=== PATIENT | male | born 1950 | race Caucasian/White ===

== ENCOUNTER → 2017-06-06 13:44 | Outpatient (REF) | payer MEDICARE, MEDICAID, SELFPAY ==
[2017-06-06 18:30] LABS: Basophils % 1.3 % (0.1-2.0); Eosinophils # 0.6 K/mm3 (0.0-0.4); Eosinophils % 19.7 % (0.1-12.0); Hematocrit 39.3 % (42.0-52.0); Lymphocytes # 0.9 K/mm3 (0.7-4.5); Lymphocytes % 28.4 K/mm3 (10-50); Mean Corpuscular HGB Conc 33.1 g/dL (31.8-35.4); Mean Corpuscular Hemoglobin 31.2 pg (27.0-31.2); Mean Platelet Volume 8.5 fl (7.4-10.4); Monocytes # 0.2 K/mm3 (0.1-1.0); Monocytes % 5.9 % (1.7-9.3); Neutrophils # 1.4 K/mm3 (1.8-7.8); Neutrophils % 44.7 % (37.0-80.0); Platelet Count 82 K/mm3 (142-424); Red Blood Count 4.18 M/mm3 (4.60-6.20); Red Cell Distribution Width 14.1 % (11.5-17.5); White Blood Count 3.1 K/mm3 (4.8-10.8)
[2017-06-06 19:26] LABS: Alanine Aminotransferase 20 U/L (12-78); Albumin Level 3.2 gm/dL (3.4-5.0); Albumin/Globulin Ratio 0.9 (1.1-1.8); Alkaline Phosphatase 188 U/L (46-116); Anion Gap 11.6 mEq/L (5-15); Aspartate Amino Transferase 24 U/L (15-37); Bilirubin,Total 1.4 mg/dL (0.2-1.0); Blood Urea Nitrogen 11 mg/dL (7-18); Calcium 8.3 mg/dL (8.5-10.1); Carbon Dioxide 30 mmol/L (21.0-32.0); Chloride 107 mmol/L (98-107); Creatinine,Serum 0.94 mg/dL (0.70-1.30); Estimated Glomerular Filt Rate 81 ml/min (>60); GFR (African American) 97 ML/MIN (>60); Globulin 3.4 gm/dl (1.3-3.2); Glucose 187 mg/dL (74-106); Potassium 4.6 mmoL/L (3.5-5.1); Sodium 144 mmol/L (136-145); Thyroid Stimulating Hormone 1.34 uIU/ml (0.358-3.740); Total Protein,Serum 6.6 gm/dL (6.4-8.2)
== END ==
LOC: LAB 13:44
PROVIDERS: Visit Provider Emergency Medicine
DX: M54.2 Cervicalgia (principal); R53.83 Other fatigue
CPT/HCPCS: 80053; 84439; 84443; 85025

== ENCOUNTER → 2017-07-18 15:55 | Outpatient (CLI) | payer MEDICARE, MEDICAID, SELFPAY ==
--- NOTE | 2017-07-18 16:02 | XR_ITS ---
EXAM: XR lumbar spine min 4V HISTORY: ITS.REASON: Back Pain ORDERING PHYSICIAN: Dallin Molina MD PATIENT AGE: 66 years FINDINGS: No fracture or dislocation. No lytic or blastic change. Mild facet hypertrophic changes are present L5-S1 and there are small endplate osteophytes at L3, L4, and L5. The disc spaces are well-preserved. IMPRESSION: No acute finding. Mild lumbar spondylosis
--- NOTE | 2017-07-18 16:02 | XR_ITS ---
EXAM: XR cervical spine 5V HISTORY: ITS.REASON: Neck Pain ORDERING PHYSICIAN: Dallin Molina MD PATIENT AGE: 66 years FINDINGS: No fracture or dislocation. Minimal anterolisthesis C5 on C6 of 3 mm. There are facet hypertrophic changes from C3 to C7. The foramina are not well displayed on the left posterior oblique view.. The disc spaces are well-preserved. IMPRESSION: Facet arthritic changes. Mild anterolisthesis of C5 on C6
== END ==
PROVIDERS: PCP Emergency Medicine; Visit Provider Emergency Medicine
DX: M54.2 Cervicalgia (principal); M54.9 Dorsalgia, unspecified
CPT/HCPCS: 72050; 72110

== ENCOUNTER → 2017-08-22 13:44 | Outpatient (CLI) | payer MEDICARE, MEDICAID, SELFPAY ==
--- NOTE | 2017-08-22 13:49 | MR_ITS ---
MR lumbar spine wo con HISTORY: PT states low back pain X2 yrs or longer. Bilateral leg pain, numbness and tingling. ITS.REASON: Back Pain ORDERING PHYSICIAN: Dallin Molina MD PATIENT AGE: 66 years Comparison: X-RAY 07/18/17 TECHNIQUE: Standard multiplanar multiecho sequences are performed without contrast. 3-D MIP and myelographic images are also rendered and reviewed FINDINGS: There is normal alignment. The spinal cord ends at the T12-L1 level. T12-L1, L1-L2, and L2-L3 have an unremarkable appearance. L3-L4: Minimal bulging disc. Minimal bilateral foraminal narrowing from the bulging disc and mild facet and ligamentum flavum hypertrophy. L4-L5: Mild left lateral recess and foraminal narrowing from minimal bulging disc and mild facet and ligamentum flavum hypertrophy. L5-S1: Minimal bulging disc along with facet and ligamentum flavum hypertrophy with mild bilateral lateral recess and foraminal narrowing. Incidental note is made of a rounded fluid collection within the right paraspinal muscles beginning at the T11-T12 level and extending inferiorly for a length of approximately 7 cm to the L1-L2 level measuring 2.8 cm AP and 3.6 in meters transverse. This is isointense on T1. On the T2-weighted images there is a fluid fluid level with increased signal intensity anteriorly and isointensity posteriorly and may represent a heme fluid level within a hematoma. This is incompletely imaged. There are some septations within this lesion medially. IMPRESSION: 1. Lumbar spondylosis as described above with bulging discs along facet ligamentum flavum hypertrophy causing foraminal lateral recess narrowing. Please above for detailed description at each level. 2. No extruded herniated disc or canal stenosis. 3. Probable hematoma right paraspinal muscles/longissimus thoracis muscle. Please correlate with clinical parameters. Has a patient had trauma to this area?. Consider follow-up to confirm stability and/or resolution
--- NOTE | 2017-08-22 13:49 | MR_ITS ---
MR cervical spine wo con, MR 3-d myelogram/MRCP HISTORY: Neck pain, limited range of motion due to pain ITS.REASON: Neck Pain ORDERING PHYSICIAN: Dallin Molina MD PATIENT AGE: 66 years Comparison: None TECHNIQUE: Standard multiplanar multiecho sequences are performed without contrast. 3-D MIP and myelographic images are also rendered and reviewed FINDINGS: There is normal alignment. Craniocervical junction has an unremarkable appearance. There is mild prominence of the posterior longitudinal ligament at C2-C3 to C4-C5 level. C2-C3: Unremarkable. C3-C4: Mild left-sided foraminal narrowing from facet and uncovertebral hypertrophy. C4-C5: Minimal bulging disc. C5-C6: 3 mm anterolisthesis of C5. There is facet hypertrophic change bilaterally with bilateral foraminal narrowing. The foraminal narrowing slightly greater on the left. C6-C7: Mild left-sided foraminal narrowing from facet hypertrophic change. C7-T1: Unremarkable. No canal stenosis or extruded herniated disc evident. IMPRESSION: 1. Mild cervical spondylosis with multilevel facet and uncovertebral hypertrophy as detailed above with mild left foraminal narrowing at C3-C4 and bilateral foraminal narrowing at C5-C6 and left foraminal narrowing at C6-C7. 2. No canal stenosis or disc herniation
== END ==
PROVIDERS: PCP Emergency Medicine; Visit Provider Emergency Medicine
DX: M54.5 Low back pain (principal); M54.2 Cervicalgia
CPT/HCPCS: 72141; 72148; 76376

== ENCOUNTER → 2017-09-26 13:26 | Outpatient (REF) | payer MEDICARE, MEDICAID, SELFPAY ==
[2017-09-26 18:54] LABS: Amphetamine/Metha Screen,Urine Negative ng/mL (<1000); Barbiturates Screen,Urine Negative ng/mL (<200); Benzodiazepines Screen,Urine Negative ng/mL (<200); Cannabinoid Screen,Urine Negative ng/mL (<50); Cocaine Screen,Urine Negative ng/mL (<300); Methadone Screen,Urine Negative ng/mL (<300); Opiate Screen,Urine Negative ng/mL (<300); Phencyclidine Screen,Urine Negative ng/mL (<25)
== END ==
LOC: LAB 13:26
PROVIDERS: Visit Provider Emergency Medicine
DX: M47.816 Spondylosis without myelopathy or radiculopathy, lumbar region (principal)
CPT/HCPCS: 80305

== ENCOUNTER → 2017-11-07 14:55 | Outpatient (REF) | payer MEDICARE, MEDICAID, SELFPAY ==
[2017-11-07 18:20] LABS: Amphetamine/Metha Screen,Urine Negative ng/mL (<1000); Barbiturates Screen,Urine Negative ng/mL (<200); Benzodiazepines Screen,Urine Negative ng/mL (<200); Cannabinoid Screen,Urine Negative ng/mL (<50); Cocaine Screen,Urine Negative ng/mL (<300); Methadone Screen,Urine Negative ng/mL (<300); Opiate Screen,Urine Negative ng/mL (<300); Phencyclidine Screen,Urine Negative ng/mL (<25)
== END ==
LOC: LAB 14:55
PROVIDERS: Visit Provider Emergency Medicine
DX: Z79.899 Other long term (current) drug therapy (principal)
CPT/HCPCS: 80305

== ENCOUNTER → 2017-12-07 13:25 | Outpatient (REF) | payer MEDICARE, MEDICAID, SELFPAY ==
[2017-12-07 18:07] LABS: Amphetamine/Metha Screen,Urine Negative ng/mL (<1000); Barbiturates Screen,Urine Negative ng/mL (<200); Benzodiazepines Screen,Urine Negative ng/mL (<200); Cannabinoid Screen,Urine Negative ng/mL (<50); Cocaine Screen,Urine Negative ng/mL (<300); Methadone Screen,Urine Negative ng/mL (<300); Opiate Screen,Urine Negative ng/mL (<300); Phencyclidine Screen,Urine Negative ng/mL (<25)
== END ==
LOC: LAB 13:25
PROVIDERS: Visit Provider Emergency Medicine
DX: Z79.899 Other long term (current) drug therapy (principal)
CPT/HCPCS: 80305

== ENCOUNTER → 2018-01-03 14:44 | Outpatient (REF) | payer MEDICARE, MEDICAID, SELFPAY ==
[2018-01-03 20:37] LABS: Amphetamine/Metha Screen,Urine Negative ng/mL (<1000); Barbiturates Screen,Urine Negative ng/mL (<200); Benzodiazepines Screen,Urine Negative ng/mL (<200); Cannabinoid Screen,Urine Negative ng/mL (<50); Cocaine Screen,Urine Negative ng/mL (<300); Methadone Screen,Urine Negative ng/mL (<300); Opiate Screen,Urine Negative ng/mL (<300); Phencyclidine Screen,Urine Negative ng/mL (<25)
[2018-02-10 20:13] LABS: Opiates NEGATIVE
== END ==
LOC: LAB 14:44
PROVIDERS: Visit Provider Emergency Medicine
DX: Z79.899 Other long term (current) drug therapy (principal)
CPT/HCPCS: 80305; 80361; G0480

== ENCOUNTER → 2018-02-01 18:57 | Outpatient (CLI) | payer MEDICARE, MEDICAID, SELFPAY ==
[2018-02-01 20:53] LABS: Basophils # 0.1 K/mm3 (0-0.2); Basophils % 2.7 % (0.1-2.0); Eosinophils # 0.6 K/mm3 (0.0-0.4); Eosinophils % 15.2 % (0.1-12.0); Hematocrit 46.9 % (42.0-52.0); Hemoglobin 13.7 g/dL (14.1-18.0); Lymphocytes # 1.7 K/mm3 (0.7-4.5); Mean Corpuscular HGB Conc 29.3 g/dL (31.8-35.4); Mean Corpuscular Hemoglobin 30.8 pg (27.0-31.2); Mean Corpuscular Volume 105.4 fl (80-94); Mean Platelet Volume 19.5 fl (7.4-10.4); Monocytes # 0.2 K/mm3 (0.1-1.0); Monocytes % 5.1 % (1.7-9.3); Neutrophils # 1.5 K/mm3 (1.8-7.8); Neutrophils % 36.7 % (37.0-80.0); Platelet Count 114 K/mm3 (142-424); Red Blood Count 4.45 M/mm3 (4.60-6.20); Red Cell Distribution Width 17.6 % (11.5-17.5)
[2018-02-01 21:28] LABS: Amphetamine/Metha Screen,Urine Negative ng/mL (<1000); Barbiturates Screen,Urine Negative ng/mL (<200); Benzodiazepines Screen,Urine Negative ng/mL (<200); Cannabinoid Screen,Urine Negative ng/mL (<50); Cocaine Screen,Urine Negative ng/mL (<300); Methadone Screen,Urine Negative ng/mL (<300); Opiate Screen,Urine Positive ng/mL (<300); Phencyclidine Screen,Urine Negative ng/mL (<25)
[2018-02-01 21:31] LABS: Erythrocyte Sedimentation Rate 15 mm/hr (0-20)
[2018-02-01 23:27] LABS: Hemoglobin A1C 10.3 % (0.0-7.0)
[2018-02-02 00:01] LABS: Alanine Aminotransferase 23 U/L (12-78); Albumin/Globulin Ratio 0.8 (1.1-1.8); Alkaline Phosphatase 255 U/L (46-116); Aspartate Amino Transferase 25 U/L (15-37); Bilirubin,Total 2.1 mg/dL (0.2-1.0); Blood Urea Nitrogen 9 mg/dL (7-18); Calcium 8.1 mg/dL (8.5-10.1); Carbon Dioxide 28 mmol/L (21.0-32.0); Chloride 97 mmol/L (98-107); Creatinine,Serum 1.14 mg/dL (0.70-1.30); Estimated Glomerular Filt Rate 64 ml/min (>60); Free T4 (Free Thyroxine) 0.93 ng/dl (0.76-1.46); GFR (African American) 78 ML/MIN (>60); Globulin 3.8 gm/dl (1.3-3.2); Sodium 134 mmol/L (136-145); Thyroid Stimulating Hormone 1.79 uIU/ml (0.358-3.740); Total Protein,Serum 6.8 gm/dL (6.4-8.2)
[2018-02-02 00:10] LABS: Glucose 611 mg/dL (74-106)
[2018-02-03 16:13] LABS: PSA, Free 0.16 ng/mL; Prostate Specific Ag 0.4 ng/mL (0.0-4.0)
== END ==
PROVIDERS: Visit Provider Emergency Medicine
DX: M43.10 Spondylolisthesis, site unspecified (principal); Z79.899 Other long term (current) drug therapy; M54.9 Dorsalgia, unspecified; R97.20 Elevated prostate specific antigen [PSA]
CPT/HCPCS: 80053; 80305; 83036; 84153; 84154; 84439; 84443; 85025; 85651

== ENCOUNTER → 2018-03-03 17:39 | Outpatient (CLI) | payer MEDICARE, MEDICAID, SELFPAY ==
[2018-03-03 20:31] LABS: Amphetamine/Metha Screen,Urine Negative ng/mL (<1000); Barbiturates Screen,Urine Negative ng/mL (<200); Benzodiazepines Screen,Urine Negative ng/mL (<200); Cannabinoid Screen,Urine Negative ng/mL (<50); Cocaine Screen,Urine Negative ng/mL (<300); Methadone Screen,Urine Negative ng/mL (<300); Opiate Screen,Urine Negative ng/mL (<300); Phencyclidine Screen,Urine Negative ng/mL (<25)
[2018-03-11 14:00] LABS: Opiates Negative (Cutoff=100)
== END ==
PROVIDERS: Visit Provider Emergency Medicine
DX: M47.812 Spondylosis without myelopathy or radiculopathy, cervical region (principal)
CPT/HCPCS: 80305; 80361; 80365; G0480

== ENCOUNTER → 2018-04-04 17:52 | Outpatient (CLI) | payer MEDICARE, MEDICAID, SELFPAY ==
[2018-04-04 20:56] LABS: Amphetamine/Metha Screen,Urine Negative ng/mL (<1000); Barbiturates Screen,Urine Negative ng/mL (<200); Benzodiazepines Screen,Urine Negative ng/mL (<200); Cannabinoid Screen,Urine Negative ng/mL (<50); Cocaine Screen,Urine Negative ng/mL (<300); Methadone Screen,Urine Negative ng/mL (<300); Opiate Screen,Urine Negative ng/mL (<300); Phencyclidine Screen,Urine Negative ng/mL (<25)
[2018-04-11 14:02] LABS: Opiates Negative ng/mL (Cutoff=100)
== END ==
PROVIDERS: Visit Provider Emergency Medicine
DX: M47.812 Spondylosis without myelopathy or radiculopathy, cervical region (principal)
CPT/HCPCS: 80305; 80361; G0480

== ENCOUNTER → 2018-06-13 18:11 | Outpatient (CLI) | payer MEDICARE, MEDICAID, SELFPAY ==
[2018-06-13 18:30] LABS: Basophils # 0.1 K/mm3 (0-0.2); Basophils % 1.8 % (0.1-2.0); Eosinophils # 0.6 K/mm3 (0.0-0.4); Eosinophils % 18.6 % (0.1-12.0); Hematocrit 39.9 % (42.0-52.0); Hemoglobin 13.1 g/dL (14.1-18.0); Mean Corpuscular HGB Conc 32.9 g/dL (31.8-35.4); Mean Platelet Volume 8.1 fl (7.4-10.4); Monocytes # 0.2 K/mm3 (0.1-1.0); Monocytes % 6.3 % (1.7-9.3); Neutrophils # 1.4 K/mm3 (1.8-7.8); Neutrophils % 42.2 % (37.0-80.0); Platelet Count 90 K/mm3 (142-424); Red Blood Count 4.24 M/mm3 (4.60-6.20); White Blood Count 3.3 K/mm3 (4.8-10.8)
[2018-06-13 18:55] LABS: Alanine Aminotransferase 26 U/L (12-78); Albumin Level 3.3 gm/dL (3.4-5.0); Alkaline Phosphatase 235 U/L (46-116); Anion Gap 12.8 mEq/L (5-15); Aspartate Amino Transferase 35 U/L (15-37); Bilirubin,Total 1.5 mg/dL (0.2-1.0); Blood Urea Nitrogen 13 mg/dL (7-18); Calcium 8.1 mg/dL (8.5-10.1); Carbon Dioxide 27 mmol/L (21.0-32.0); Chloride 106 mmol/L (98-107); Chol/HDL Ratio 3.4 (1-3.5); Cholesterol 183 mg/dL (140-200); Creatinine,Serum 1.02 mg/dL (0.70-1.30); Estimated Glomerular Filt Rate 73 ml/min (>60); GFR (African American) 88 ML/MIN (>60); Globulin 3.4 gm/dl (1.3-3.2); Glucose 279 mg/dL (74-106); HDL Cholesterol 54 mg/dL (27-67); LDL Cholesterol 104 mg/dL (0-130); Potassium 3.8 mmoL/L (3.5-5.1); Sodium 142 mmol/L (136-145); Thyroid Stimulating Hormone 1.34 uIU/ml (0.358-3.740); Total Protein,Serum 6.7 gm/dL (6.4-8.2); Triglycerides 124 mg/dL (30-200); VLDL Cholesterol 25 mg/dL (0-40)
[2018-06-13 20:08] LABS: Hemoglobin A1C 6.5 % (0.0-7.0)
[2018-06-15 09:19] LABS: Creatinine, Urine 156.2 mg/dL (Not Estab.)
[2018-06-15 13:07] LABS: Vitamin D 25 Hydroxy 22.9 ng/mL (30.0-100.0)
== END ==
PROVIDERS: Visit Provider Emergency Medicine
DX: E11.9 Type 2 diabetes mellitus without complications (principal); Z79.84 Long term (current) use of oral hypoglycemic drugs
CPT/HCPCS: 80053; 80061; 82043; 82570; 82652; 83036; 84439; 84443; 85025

== ENCOUNTER → 2018-08-11 17:24 | Outpatient (CLI) | payer MEDICARE, MEDICAID, SELFPAY ==
[2018-08-11 18:01] LABS: Basophils # 0.1 K/mm3 (0-0.2); Basophils % 1.3 % (0.1-2.0); Eosinophils # 0.7 K/mm3 (0.0-0.4); Eosinophils % 17.8 % (0.1-12.0); Hematocrit 40.5 % (42.0-52.0); Hemoglobin 14.2 g/dL (14.1-18.0); Lymphocytes % 24.8 % (10-50); Mean Corpuscular Hemoglobin 32.1 pg (27.0-31.2); Mean Corpuscular Volume 91.9 fl (80-94); Mean Platelet Volume 8.3 fl (7.4-10.4); Monocytes # 0.2 K/mm3 (0.1-1.0); Monocytes % 5.8 % (1.7-9.3); Neutrophils % 50.2 % (37.0-80.0); Platelet Count 97 K/mm3 (142-424); Red Blood Count 4.41 M/mm3 (4.60-6.20); Red Cell Distribution Width 14.6 % (11.5-17.5); White Blood Count 3.9 K/mm3 (4.8-10.8)
[2018-08-11 19:10] LABS: Amphetamine/Metha Screen,Urine Negative ng/mL (<1000); Barbiturates Screen,Urine Negative ng/mL (<200); Benzodiazepines Screen,Urine Negative ng/mL (<200); Cannabinoid Screen,Urine Negative ng/mL (<50); Cocaine Screen,Urine Negative ng/mL (<300); Methadone Screen,Urine Negative ng/mL (<300); Opiate Screen,Urine Positive ng/mL (<300); Phencyclidine Screen,Urine Negative ng/mL (<25)
[2018-08-11 19:16] LABS: Hemoglobin A1C 8.2 % (0.0-7.0)
[2018-08-11 19:22] LABS: Anion Gap 10.9 mEq/L (5-15); Blood Urea Nitrogen 8 mg/dL (7-18); Calcium 7.8 mg/dL (8.5-10.1); Carbon Dioxide 28 mmol/L (21.0-32.0); Chloride 105 mmol/L (98-107); Creatinine,Serum 1.22 mg/dL (0.70-1.30); Estimated Glomerular Filt Rate 59 ml/min (>60); GFR (African American) 72 ML/MIN (>60); Glucose 375 mg/dL (74-106); Potassium 3.9 mmoL/L (3.5-5.1); Sodium 140 mmol/L (136-145)
== END ==
PROVIDERS: Visit Provider Emergency Medicine
DX: M47.812 Spondylosis without myelopathy or radiculopathy, cervical region (principal); E11.9 Type 2 diabetes mellitus without complications; R42 Dizziness and giddiness; Z79.84 Long term (current) use of oral hypoglycemic drugs
CPT/HCPCS: 80048; 80305; 83036; 85025

== ENCOUNTER → 2018-09-08 17:06 | Outpatient (CLI) | payer MEDICARE, MEDICAID, SELFPAY ==
[2018-09-08 18:32] LABS: Amphetamine/Metha Screen,Urine Negative ng/mL (<1000); Barbiturates Screen,Urine Negative ng/mL (<200); Benzodiazepines Screen,Urine Negative ng/mL (<200); Cannabinoid Screen,Urine Negative ng/mL (<50); Cocaine Screen,Urine Negative ng/mL (<300); Methadone Screen,Urine Negative ng/mL (<300); Opiate Screen,Urine Positive ng/mL (<300); Phencyclidine Screen,Urine Negative ng/mL (<25)
== END ==
PROVIDERS: Visit Provider Emergency Medicine
DX: M47.812 Spondylosis without myelopathy or radiculopathy, cervical region (principal)
CPT/HCPCS: 80305

== ENCOUNTER → 2019-03-27 18:10 | Outpatient (CLI) | payer MEDICARE, MEDICAID, SELFPAY ==
[2019-03-27 18:24] LABS: Basophils # 0.1 K/mm3 (0-0.2); Basophils % 1.9 % (0.1-2.0); Eosinophils # 0.4 K/mm3 (0.0-0.4); Eosinophils % 11.9 % (0.1-12.0); Hematocrit 40.3 % (42.0-52.0); Hemoglobin 13.6 g/dL (14.1-18.0); Lymphocytes # 0.9 K/mm3 (0.7-4.5); Lymphocytes % 25.4 % (10-50); Mean Corpuscular HGB Conc 33.7 g/dL (31.8-35.4); Mean Corpuscular Hemoglobin 31.5 pg (27.0-31.2); Mean Corpuscular Volume 93.5 fl (80-94); Mean Platelet Volume 8.7 fl (7.4-10.4); Monocytes # 0.2 K/mm3 (0.1-1.0); Monocytes % 5.9 % (1.7-9.3); Neutrophils # 1.9 K/mm3 (1.8-7.8); Neutrophils % 54.9 % (37.0-80.0); Platelet Count 114 K/mm3 (142-424); Red Blood Count 4.31 M/mm3 (4.60-6.20); Red Cell Distribution Width 14.3 % (11.5-17.5); White Blood Count 3.4 K/mm3 (4.8-10.8)
[2019-03-27 18:45] LABS: Alanine Aminotransferase 20 U/L (12-78); Albumin Level 3.1 gm/dL (3.4-5.0); Albumin/Globulin Ratio 0.9 (1.1-1.8); Alkaline Phosphatase 221 U/L (46-116); Aspartate Amino Transferase 33 U/L (15-37); Bilirubin,Total 2.6 mg/dL (0.2-1.0); Blood Urea Nitrogen 9 mg/dL (7-18); Calcium 8.4 mg/dL (8.5-10.1); Carbon Dioxide 29 mmol/L (21.0-32.0); Chloride 108 mmol/L (98-107); Creatinine,Serum 0.96 mg/dL (0.70-1.30); Estimated Glomerular Filt Rate 78 ml/min (>60); GFR (African American) 95 ML/MIN (>60); Globulin 3.4 gm/dl (1.3-3.2); Glucose 237 mg/dL (74-106); Sodium 143 mmol/L (136-145); Total Protein,Serum 6.5 gm/dL (6.4-8.2)
== END ==
PROVIDERS: Visit Provider Emergency Medicine
DX: G62.9 Polyneuropathy, unspecified (principal); E11.9 Type 2 diabetes mellitus without complications; Z79.84 Long term (current) use of oral hypoglycemic drugs
CPT/HCPCS: 80053; 85025

== ENCOUNTER → 2019-04-25 12:36 | Outpatient (CLI) | payer MEDICARE, MEDICAID, SELFPAY ==
[2019-04-26 18:46] LABS: Amphetamine/Metha Screen,Urine Negative ng/mL (<1000); Barbiturates Screen,Urine Negative ng/mL (<200); Benzodiazepines Screen,Urine Negative ng/mL (<200); Cannabinoid Screen,Urine Negative ng/mL (<50); Cocaine Screen,Urine Negative ng/mL (<300); Methadone Screen,Urine Negative ng/mL (<300); Opiate Screen,Urine Positive ng/mL (<300); Phencyclidine Screen,Urine Negative ng/mL (<25)
== END ==
PROVIDERS: Visit Provider Emergency Medicine
DX: Z79.899 Other long term (current) drug therapy (principal)
CPT/HCPCS: 80305

== ENCOUNTER → 2019-08-06 16:57 | Outpatient (CLI) | payer MEDICARE, MEDICAID, SELFPAY ==
[2019-08-06 18:00] LABS: Basophils # 0.1 K/mm3 (0-0.2); Basophils % 1.5 % (0.1-2.0); Eosinophils # 0.5 K/mm3 (0.0-0.4); Eosinophils % 13.3 % (0.1-12.0); Hematocrit 38.8 % (42.0-52.0); Lymphocytes # 1.1 K/mm3 (0.7-4.5); Lymphocytes % 28.2 % (10-50); Mean Corpuscular HGB Conc 33.6 g/dL (31.8-35.4); Mean Corpuscular Volume 92.3 fl (80-94); Mean Platelet Volume 7.5 fl (7.4-10.4); Monocytes # 0.3 K/mm3 (0.1-1.0); Monocytes % 7.8 % (1.7-9.3); Neutrophils # 1.8 K/mm3 (1.8-7.8); Neutrophils % 49.1 % (37.0-80.0); Platelet Count 119 K/mm3 (142-424); Red Cell Distribution Width 15.7 % (11.5-17.5); White Blood Count 3.8 K/mm3 (4.8-10.8)
[2019-08-06 19:43] LABS: Alanine Aminotransferase 18 U/L (12-78); Albumin Level 3.2 g/dl (3.5-5.0); Albumin/Globulin Ratio 0.9 (1.1-1.8); Alkaline Phosphatase 209 U/L (38-126); Anion Gap 7.5 mEq/L (5-15); Aspartate Amino Transferase 46 U/L (17-59); Bilirubin,Total 2.8 mg/dl (0.2-1.3); Blood Urea Nitrogen 11 mg/dl (9-20); Calcium 8.6 mg/dl (8.4-10.2); Carbon Dioxide 25 mmol/L (22.0-30.0); Chloride 109 mmol/L (98-107); Estimated Glomerular Filt Rate 96 ml/min (>60); GFR (African American) 117 ML/MIN (>60); Globulin 3.7 g/dL (1.3-3.2); Glucose 163 mg/dl (74-100); HDL Cholesterol 58 mg/dl (40-60); Potassium 3.5 mmoL/L (3.5-5.1); Sodium 138 mmol/L (136-145); Total Protein,Serum 6.9 g/dl (6.3-8.2)
[2019-08-06 19:45] LABS: Chol/HDL Ratio 2.6 (1-3.5); Cholesterol 150 mg/dl (140-200); Triglycerides 126 mg/dl (30-150); VLDL Cholesterol 25 mg/dL (0-40)
[2019-08-06 19:59] LABS: T4 (Thyroxine) 7.6 ug/dl (5.53-11.0)
[2019-08-06 20:00] LABS: Direct LDL Cholesterol 67.97 mg/dL (100-129)
[2019-08-06 20:13] LABS: Thyroid Stimulating Hormone 0.87 uIU/mL (0.465-4.68)
[2019-08-06 21:29] LABS: Hemoglobin A1C 5.6 % (4.0-6.0)
[2019-08-08 11:27] LABS: Vitamin D 25 Hydroxy 24.3 ng/mL (30.0-100.0)
[2019-08-08 11:28] LABS: Microalbumin, Urine 39.9 ug/mL (Not Estab.)
== END ==
PROVIDERS: Visit Provider Emergency Medicine
DX: E11.9 Type 2 diabetes mellitus without complications (principal); M54.5 Low back pain; E55.9 Vitamin D deficiency, unspecified; Z79.84 Long term (current) use of oral hypoglycemic drugs
CPT/HCPCS: 80053; 80061; 82043; 82652; 83036; 84436; 84443; 85025

== ENCOUNTER 2020-07-07 11:57 | Emergency (ER) | payer MEDICARE, MEDICAID, SELFPAY ==
[2020-07-07] VITALS (7 sets, daily range): BP systolic 124–161; BP diastolic 88–98; PULSE 73–86; RESP 18–20; TEMP 37; O2SAT 97–100; BMI 26.1
--- NOTE | 2020-07-07 12:01 | HMH.EDGENADL ---
ED Disposition Clinical Impression: Cellulitis Qualifiers: Site of cellulitis: trunk Site of cellulitis of trunk: abdominal wall Qualified Code(s): L03.311 - Cellulitis of abdominal wall Disposition: Home, Self-Care Condition on Discharge: Good Additional Instructions: Take meds as prescribed. There is a chance you may develop some diarrhea so stay well-hydrated. Return if any spread of redness/erythema, worsening drainage, pain, generalized malaise, fever/chills, or other new concerning symptoms. Prescriptions: Clindamycin HCl 450 mg PO TID 7 Days #63 cap Prescription Printed Referrals: Dallin Molina MD [Primary Care Provider] - - Critical Care Critical Care Time: No Attestation: On , the high probability of a clinically significant, sudden or life threatening deterioration of the following system(s) required my full and direct attention, intervention and personal management. The time I documented below is in addition to time spent performing reported procedures but includes the following listed in this critical care notation. Medical Decision Making - Medical Records Medical records reviewed: Yes: I reviewed the patient's medical records. - Juan F Inquiry Pt receiving controlled substance: No Vital Signs: 07/07/20 11:58 Temperature 98.6 F Temperature Source Oral Pulse Rate [Left Radial] 86 Respiratory Rate 20 Blood Pressure [Right Arm] 124/92 H Blood Pressure Mean [Right Arm] 102 Blood Pressure Source [Right Arm] Automatic Cuff Blood Pressure Position [Right Arm] Sitting 02 Sat by Pulse Oximetry 99 Oxygen Delivery Method Room Air - Lab Data Lab Results 07/07/20 12:40: WBC 5.3, RBC 4.25 L, Hgb 13.2 L, Hct 39.8 L, MCV 93.5, MCH 31.0, MCHC 33.1, RDW 14.9, Plt Count 217, MPV 7.4, Neut % (Auto) 61.4, Lymph % (Auto) 21.1, [place] % (Auto) 8.1, Eos % (Auto) 7.7, Baso % (Auto) 1.6, Neut # (Auto) 3.3, Lymph # (Auto) 1.1, [place] # (Auto) 0.4, Eos # (Auto) 0.4, Baso # (Auto) 0.1 07/07/20 12:40: Sodium 134 L, Potassium 4.1, Chloride 102, Carbon Dioxide 30, Anion Gap 6.1, BUN 9, Creatinine 0.90, Estimated Creat Clear 100, Estimated GFR 84, Est GFR ( Amer) 102, Glucose 155 H, Calcium 8.0 L, Total Bilirubin 3.4 H, AST 40, ALT 15, Alkaline Phosphatase 223 H, Total Protein 6.8, Albumin 2.8 L, Globulin 4.0 H, Albumin/Globulin Ratio 0.7 L Result diagrams: 07/07/20 12:40 07/07/20 12:40 Orders (Tests/Meds): ED MEDICATIONS Discontinued Medications Generic Name Dose Route Start Last Admin Trade Name Freq PRN Reason Stop Dose Admin Iopamidol 75 ml 07/07/20 13:51 07/07/20 13:51 Iopamidol-370 (76%);100ml Bottle IV 07/07/20 13:52 75 ml ONCE ONE Administration Sodium Chloride 10 ml 07/07/20 13:51 07/07/20 13:51 Sodium Chloride 0.9% 10ml Syr (Rad Only) IV 07/07/20 13:52 10 ml ONCE ONE Administration Medical Decision Narrative: Patient presents to the emergency department with drainage from his umbilicus over the past 1 week. No distention noted on exam or any tenderness. No other GI symptoms. Differential diagnosis does include skin/soft tissue infection versus deeper abscess versus hernia. Due to patient's complicated history, I do believe CT imaging is indicated to ensure no deeper involvement of what could be a superficial soft tissue infection. Lab work be checked prior to that time to ensure no leukocytosis or other renal insufficiency/electrolyte derangement. Nonactionable. CT demonstrates no deeper space involvement. At this time, due to patient's purulent cellulitis patient will be placed on antibiotic coverage including MRSA coverage. Clindamycin prescribed and patient counseled on risk for diarrhea to stay well-hydrated. He agrees. He will follow up with his PCP in several days for recheck. He will return return if any spread of redness/erythema, worsening drainage, pain, generalized malaise, fever/chills, or other new concerning symptoms. Assessment: SSTI lowe
--- NOTE | 2020-07-07 12:32 | CT_ITS ---
PROCEDURE: CT ABDOMEN PELVIS W CON CLINICAL INDICATION: pain Generalized abdominal pain and swelling COMPARISON: No exams were available for comparison TECHNIQUE: IV Contrast: 75ML Isovue 370 Oral Contrast None Axial images obtained with sagittal and coronal reformats. All CT scans at the facility use one or more dose reduction, viz: automated exposure control, ma/kV adjustment per patient size (including targeted exams where dose is matched to indication, i.e. head), or iterative reconstruction technique. FINDINGS: There is a small hiatal hernia. There is mild nonspecific thickening of the distal esophagus. There are mild atelectatic changes in the lingula. The liver appears shrunken with irregular margins consistent with cirrhosis. The portal vein is upper normal at 15 mm. No focal liver lesion is identified. There is splenomegaly at 15 cm. Perigastric and paraesophageal perisplenic and left-sided small Leny renal varices are noted. The pancreas has an unremarkable appearance. No adrenal mass. The kidneys have an unremarkable appearance. No evidence of appendicitis. There is a moderate to large amount of ascites in the abdomen and pelvis. There is nonspecific thickening both large and small bowel suggesting hepatic enteropathy and the colopathy. There is colonic diverticulosis. No obvious evidence of diverticulitis which may be difficult to diagnose secondary to the ascites and hepatic colopathy. No acute bony findings. There are few punctate sclerotic foci of the pelvis and right hip. These may be related to bone islands. There is thickening of the anterior abdominal wall and at the umbilical region. IMPRESSION: 1. Cirrhosis with moderate to large amount of ascites and upper abdominal varices 2. Thickening of the stomach small bowel and large bowel consistent with hepatic gastropathy, enteropathy, and colopathy. 3. Colonic diverticulosis. Dictated by: Skip Fonseca MD 07/07/2020 14:36 Skip Fonseca MD in [facility] 07/07/2020 14:36
[2020-07-07 12:56] LABS: Basophils # 0.1 K/mm3 (0-0.2); Basophils % 1.6 % (0.1-2.0); Eosinophils # 0.4 K/mm3 (0.0-0.4); Eosinophils % 7.7 % (0.1-12.0); Hematocrit 39.8 % (42.0-52.0); Hemoglobin 13.2 g/dL (14.1-18.0); Lymphocytes # 1.1 K/mm3 (0.7-4.5); Lymphocytes % 21.1 % (10-50); Mean Corpuscular HGB Conc 33.1 g/dL (31.8-35.4); Mean Corpuscular Volume 93.5 fl (80-94); Mean Platelet Volume 7.4 fl (7.4-10.4); Monocytes # 0.4 K/mm3 (0.1-1.0); Monocytes % 8.1 % (1.7-9.3); Neutrophils # 3.3 K/mm3 (1.8-7.8); Neutrophils % 61.4 % (37.0-80.0); Platelet Count 217 K/mm3 (142-424); Red Blood Count 4.25 M/mm3 (4.60-6.20); Red Cell Distribution Width 14.9 % (11.5-17.5); White Blood Count 5.3 K/mm3 (4.8-10.8)
[2020-07-07 13:01] LABS: Chloride 102 mmol/L (98-107)
[2020-07-07 13:02] LABS: Potassium 4.1 mmoL/L (3.5-5.1); Sodium 134 mmol/L (136-145)
[2020-07-07 13:04] LABS: Alanine Aminotransferase 15 U/L (12-78); Aspartate Amino Transferase 40 U/L (17-59); Blood Urea Nitrogen 9 mg/dl (9-20); Creatinine Clearance Estimated 100 mL/min (50-200); Estimated Glomerular Filt Rate 84 ml/min (>60); GFR (African American) 102 ML/MIN (>60)
[2020-07-07 13:05] LABS: Albumin Level 2.8 g/dl (3.5-5.0); Albumin/Globulin Ratio 0.7 (1.1-1.8); Alkaline Phosphatase 223 U/L (38-126); Anion Gap 6.1 mEq/L (5-15); Bilirubin,Total 3.4 mg/dl (0.2-1.3); Carbon Dioxide 30 mmol/L (22.0-30.0); Glucose 155 mg/dl (74-100); Total Protein,Serum 6.8 g/dl (6.3-8.2)
== END 2020-07-07 14:53 | disposition home or self-care (01) ==
PROVIDERS: Emergency Provider Emergency Medicine; PCP Emergency Medicine
DX: L03.311 Cellulitis of abdominal wall (principal); J44.9 Chronic obstructive pulmonary disease, unspecified; K21.9 Gastro-esophageal reflux disease without esophagitis; E78.5 Hyperlipidemia, unspecified; I10 Essential (primary) hypertension; Z79.899 Other long term (current) drug therapy; E11.65 Type 2 diabetes mellitus with hyperglycemia
CPT/HCPCS: 74177; 80053; 85025; 99282; Q9967

== ENCOUNTER 2020-07-23 12:27 | Outpatient (CLI) | payer MEDICARE, MEDICAID, SELFPAY ==
--- NOTE | 2020-07-23 12:28 | US_ITS ---
PROCEDURE: US PARACENTESIS CLINICAL INDICATION: Abdominal swelling, ascites, difficulty breathing COMPARISON: No exams were available for comparison TECHNIQUE: Informed consent was obtain prior to procedure. After appropriate Time out, under aseptic conditions and local anesthesia with 1% buffered lidocaine using sonographic guidance a 6 Serbian Fxhw-M-Viknonio catheter was inserted into the largest pocket of fluid localized in the right lower quadrant. Approximately 9350 mL serous fluid was drained. The patient tolerated the procedure well and left the radiology suite in stable condition. FINDINGS: Diffuse ascites IMPRESSION: Successful sonographic guided paracentesis without complication. Dictated by: Skip Fonseca MD 07/23/2020 17:42 Skip Fonseca MD in [facility] 07/23/2020 17:42
[2020-07-23 14:05] VITALS: BMI 33.3
[2020-07-23 14:31] LABS: Creatinine Clearance Estimated 112 mL/min (50-200); Estimated Glomerular Filt Rate 96 ml/min (>60); GFR (African American) 116 ML/MIN (>60)
[2020-07-23 14:43] LABS: Appearance,Body Fld. Cloudy; Source, Body Fld. Peritoneal Fluid
[2020-07-23 14:44] LABS: RBC,Body Fluid < 10 cells/uL (< 10 X 10^3); TNC,Body Fluid 115 cells/uL (< 1000)
[2020-07-23 14:45] LABS: Volume,Body Fld. 72 mL
[2020-07-23 15:15] VITALS: BP 114/68; PULSE 76; RESP 17; TEMP 36.4
[2020-07-23 15:44] LABS: Mononuclear WBCs,Body Fluid 100 %; Polynuclear WBC,Body Fluid 0 %
[2020-07-23 16:55] VITALS: BP 122/68; PULSE 69; RESP 18
[2020-07-24 12:52] LABS: Glucose, Body Fluid 99 mg/dL (.); Protein, Body Fluid 0.8 g/dL (.)
== END 2020-07-23 16:55 | disposition home or self-care (01) ==
PROVIDERS: PCP Emergency Medicine; Visit Provider Emergency Medicine
DX: R18.8 Other ascites (principal)
CPT/HCPCS: 49083; 82565; 82945; 84155; 87070; 87205; 89051; 96365; P9047

== ENCOUNTER → 2020-08-26 18:14 | Outpatient (CLI) | payer MEDICARE, MEDICAID, SELFPAY ==
[2020-08-26 18:28] LABS: Basophils # 0.1 K/mm3 (0-0.2); Basophils % 0.9 % (0.1-2.0); Eosinophils # 0.4 K/mm3 (0.0-0.4); Eosinophils % 7.8 % (0.1-12.0); Hematocrit 33.5 % (42.0-52.0); Hemoglobin 11.7 g/dL (14.1-18.0); Lymphocytes # 0.6 K/mm3 (0.7-4.5); Mean Corpuscular HGB Conc 34.9 g/dL (31.8-35.4); Mean Corpuscular Hemoglobin 32.1 pg (27.0-31.2); Mean Corpuscular Volume 92.1 fl (80-94); Mean Platelet Volume 8.1 fl (7.4-10.4); Monocytes # 0.4 K/mm3 (0.1-1.0); Monocytes % 7.1 % (1.7-9.3); Neutrophils # 3.8 K/mm3 (1.8-7.8); Neutrophils % 72.2 % (37.0-80.0); Platelet Count 144 K/mm3 (142-424); Red Blood Count 3.64 M/mm3 (4.60-6.20); Red Cell Distribution Width 15.4 % (11.5-17.5); White Blood Count 5.3 K/mm3 (4.8-10.8)
[2020-08-26 18:37] LABS: Chloride 102 mmol/L (98-107)
[2020-08-26 18:38] LABS: Potassium 3.5 mmoL/L (3.5-5.1); Sodium 134 mmol/L (136-145)
[2020-08-26 18:40] LABS: Alanine Aminotransferase 16 U/L (12-78); Anion Gap 10.5 mEq/L (5-15); Aspartate Amino Transferase 48 U/L (17-59); Blood Urea Nitrogen 6 mg/dl (9-20); Carbon Dioxide 25 mmol/L (22.0-30.0); Estimated Glomerular Filt Rate 112 ml/min (>60); GFR (African American) 136 ML/MIN (>60)
[2020-08-26 18:41] LABS: Albumin Level 2.7 g/dl (3.5-5.0); Albumin/Globulin Ratio 0.7 (1.1-1.8); Alkaline Phosphatase 174 U/L (38-126); Bilirubin,Total 5.7 mg/dl (0.2-1.3); Calcium 7.5 mg/dl (8.4-10.2); Chol/HDL Ratio 3.7 (1-3.5); Cholesterol 104 mg/dl (140-200); Globulin 3.9 g/dL (1.3-3.2); Glucose 208 mg/dl (74-100); HDL Cholesterol 28 mg/dl (40-60); Total Protein,Serum 6.6 g/dl (6.3-8.2); Triglycerides 63 mg/dl (30-150); VLDL Cholesterol 13 mg/dL (0-40)
[2020-08-26 18:48] LABS: Hemoglobin A1C 4.3 % (4.0-6.0)
[2020-08-26 18:54] LABS: Direct LDL Cholesterol 32.81 mg/dL (100-129)
[2020-08-26 18:57] LABS: Free T4 (Free Thyroxine) 1.67 ng/dl (0.78-2.19)
[2020-08-26 19:12] LABS: Thyroid Stimulating Hormone 2.64 uIU/mL (0.465-4.68)
== END ==
PROVIDERS: Visit Provider Emergency Medicine
DX: E11.9 Type 2 diabetes mellitus without complications (principal); Z79.84 Long term (current) use of oral hypoglycemic drugs
CPT/HCPCS: 80053; 80061; 83036; 84439; 84443; 85025

== ENCOUNTER → 2020-09-16 17:14 | Outpatient (CLI) | payer MEDICARE, MEDICAID, SELFPAY ==
[2020-09-18 10:26] LABS: Hep A Ab, IgM Negative (Negative); Hepatitis B Core Antibody IgM Negative (Negative); Hepatitis B Surface Antigen Negative (Negative); Hepatitis C Antibody 0.2 s/co ratio (0.0-0.9)
== END ==
PROVIDERS: Visit Provider Emergency Medicine
DX: K74.60 Unspecified cirrhosis of liver (principal); R74.8 Abnormal levels of other serum enzymes
CPT/HCPCS: 80074; 87522

== ENCOUNTER 2020-10-13 14:05 | Observation (INO) | payer MEDICARE, MEDICAID, SELFPAY ==
[2020-10-13 14:06] VITALS: BP 107/75; PULSE 90; RESP 18; TEMP 36.7; O2SAT 99; BMI 28.5
--- NOTE | 2020-10-13 14:15 | ECG_ITS ---
APPROVED REPORT Exam: Resting ECG HR:87 bpm ECG Measurements Heart Rate 87 AXES MN 102 P 72 QRSd 84 QRS 14 QT 390 T 40 QTc 469 Conclusion Sinus rhythm with short MN Possible Anterior infarct, age undetermined Abnormal ECG Electronically signed by : Lenny Gillis, 10/14/2020 17:02:28
--- NOTE | 2020-10-13 14:23 | XR_ITS ---
PROCEDURE: XR CHEST PORTABLE CLINICAL HISTORY: cough COMPARISON: No exams were available for comparison FINDINGS: The cardiomediastinal silhouette and pulmonary vascularity are within normal limits. No lobar consolidation or collapse is evident there are small bilateral pleural effusions. No acute bony abnormalities. IMPRESSION: Small bilateral pleural effusions Dictated by: Skip Fonseca MD 10/13/2020 16:44 Skip Fonseca MD in [facility] 10/13/2020 16:44
--- NOTE | 2020-10-13 14:24 | CT_ITS ---
PROCEDURE: CT HEAD/BRAIN WO CON CLINICAL INDICATION: swelling COMPARISON: No exams were available for comparison TECHNIQUE: Axial images obtained. All CT scans at the facility use one or more dose reduction, viz: automated exposure control, ma/kV adjustment per patient size (including targeted exams where dose is matched to indication, i.e. head), or iterative reconstruction technique. FINDINGS: No midline shift, mass effect, intracranial hemorrhage, hydrocephalus, or extra-axial fluid collection is evident. There is generalized atrophy with hypoattenuation of the periventricular white matter consistent with microangiopathic changes. The calvarium has an unremarkable appearance. No mastoid effusion. There is moderate mucosal thickening of the ethmoid sinuses. IMPRESSION: No acute intracranial finding Dictated by: Skip Fonseca MD 10/13/2020 16:19 Skip Fonseca MD in [facility] 10/13/2020 16:19
--- NOTE | 2020-10-13 14:24 | CT_ITS ---
PROCEDURE: CT ABDOMEN PELVIS WO CON CLINICAL INDICATION: swelling COMPARISON: CT CT ABDOMEN PELVIS W CON from 07/07/2020 TECHNIQUE: Axial images obtained with sagittal and coronal reformats. All CT scans at the facility use one or more dose reduction, viz: automated exposure control, ma/kV adjustment per patient size (including targeted exams where dose is matched to indication, i.e. head), or iterative reconstruction technique. FINDINGS: LOWER THORAX: There are small bilateral pleural effusions. In the right lung base there is a nodular opacity along the hemidiaphragm measuring 15 mm which has developed since the previous exam. Etiology is indeterminate. In the left lung base laterally there is a parenchymal opacity which may be due to an area of atelectasis versus a small area of consolidation. There are atelectatic changes in the lung bases. Gynecomastia is noted. There is nonspecific thickening of the distal esophagus and at the GE junction. ABDOMEN & PELVIS: Cirrhotic appearance of the liver with a shrunken liver with irregular margins. Hyperdensity is noted in the superior portal region. This is cephalad to the left portal vein. Has the patient had a prior TIPS procedure?. This is directed toward the inferior vena cava but does not appear to enter into the region of the inferior vena cava. There is mild prominence of the portal vein. Spleen is enlarged. Varices are noted. The adrenal glands have an unremarkable appearance. No renal or ureteral calculi. No hydronephrosis. There is a moderate amount of ascites. Fluid is present in the right inguinal canal and in the umbilical region. There is haziness of the mesenteric fat. This is nonspecific and may be seen with ascites. There is also mild diffuse thickening of the colon and small bowel which may be seen with hepatic enteropathy and colopathy. Scattered small nodes are present in the mesenteries. IMPRESSION: 1. Cirrhosis with portal hypertension. 2. Somewhat tubular/lobular hyperdensity within the superior portal region. The etiology of this is undetermined. Calcification, partially calcified mass, or partially calcified thrombus is a consideration. Please correlate with parameters. 3. Diffuse moderate amount of ascites. 4. New 15 mm nodular density in the right lung base which could be inflammatory/infectious or neoplastic. 5. Small bilateral pleural effusions. Dictated by: Skip Fonseca MD 10/13/2020 16:00 Skip Fonseca MD in [facility] 10/13/2020 16:00
--- NOTE | 2020-10-13 14:32 | PC.NURSE ---
DORYS LOCKE speaking with Dr. Fonseca in radiology
[2020-10-13 14:35] LABS: Coronavirus 19, PCR Not Detected (NotDetected); Influenza A, PCR Not Detected (NotDetected); Influenza B, PCR Not Detected (NotDetected)
--- NOTE | 2020-10-13 14:38 | PC.NURSE ---
notified rad of orders on pt.
--- NOTE | 2020-10-13 14:44 | HMH.EDDIZZ ---
ED Disposition Clinical Impression: Syncope due to orthostatic hypotension, Dehydration Cirrhosis Qualifiers: Hepatic cirrhosis type: alcoholic cirrhosis Ascites presence: with ascites Qualified Code(s): K70.31 - Alcoholic cirrhosis of liver with ascites Disposition: Admitted As Inpatient Condition on Discharge: Fair Instructions: DI for Syncope in Adults (Fainting), DI for Syncope in Children (Fainting) Referrals: Dallin Molina MD [Primary Care Provider] - - Critical Care Critical Care Time: No Attestation: On , the high probability of a clinically significant, sudden or life threatening deterioration of the following system(s) required my full and direct attention, intervention and personal management. The time I documented below is in addition to time spent performing reported procedures but includes the following listed in this critical care notation. Medical Decision Making - Medical Records Medical records reviewed: Yes: I reviewed the patient's medical records. - Juan F Inquiry Pt receiving controlled substance: No Vital Signs: 10/13/20 14:06 Temperature 98.0 F Temperature Source Oral Pulse Rate [Right Radial] 90 Respiratory Rate 18 Blood Pressure [Right Arm] 107/75 L Blood Pressure Mean [Right Arm] 85 Blood Pressure Source [Right Arm] Automatic Cuff Blood Pressure Position [Right Arm] Sitting 02 Sat by Pulse Oximetry 99 Oxygen Delivery Method Room Air - Lab Data Lab Results 10/13/20 14:25: WBC 3.2 L, RBC 3.42 L, Hgb 10.5 L, Hct 31.6 L, MCV 92.4, MCH 30.7, MCHC 33.3, RDW 14.0, Plt Count 143, MPV 6.8 L, Neut % (Auto) 63.2, Lymph % (Auto) 17.6, [place] % (Auto) 9.1, Eos % (Auto) 8.4, Baso % (Auto) 1.7, Neut # (Auto) 2.0, Lymph # (Auto) 0.6 L, [place] # (Auto) 0.3, Eos # (Auto) 0.3, Baso # (Auto) 0.1 10/13/20 14:25: Sodium 130 L, Potassium 4.2, Chloride 97 L, Carbon Dioxide 30, Anion Gap 7.2, BUN 9, Creatinine 0.90, Estimated Creat Clear 94, Estimated GFR 84, Est GFR ( Amer) 101, Glucose 218 H, Calcium 7.8 L, Total Bilirubin 2.9 H, AST 46, ALT 25, Alkaline Phosphatase 229 H, Troponin I < 0.01, Total Protein 7.1, Albumin 2.8 L, Globulin 4.3 H, Albumin/Globulin Ratio 0.7 L, Lipase 255, TSH 3.79 10/13/20 14:25: Plasma/Serum Alcohol < 10 10/13/20 14:25: PT 13.0 H, INR 1.11 H, APTT 29.9 10/13/20 14:25: Ammonia 78 H 10/13/20 14:25: NT-Pro-B Natriuret Pep 80.1 10/13/20 14:25: SARS-CoV-2 (PCR) Not detected, Influenza A Untype (PCR) Not detected, Influenza Type B (PCR) Not detected 10/13/20 14:55: Lactate 2.7 H Result diagrams: 10/13/20 14:25 10/13/20 14:25 Orders (Tests/Meds): ORDERS Category Date Time Status CT head/brain wo con Stat Cat Scan 10/13/20 14:24 Taken XR chest portable Stat Exams 10/13/20 14:23 Taken Body Fluid: Cell Count w/ Diff Stat Lab 10/13/20 15:37 Ordered Troponin I Q3H Lab 10/13/20 17:30 Ordered Troponin I Q3H Lab 10/13/20 20:30 Ordered UDS [Drug Screen,Urine] Stat Lab 10/13/20 14:23 Ordered Urinalysis and Microscopic Stat Lab 10/13/20 14:23 Ordered Blood Culture Stat Micro 10/13/20 15:35 Ordered Body Fluid Cult & Gram Stain Stat Micro 10/13/20 15:37 Ordered US Paracentesis Stat Ultrasound 10/13/20 15:10 Ordered - Radiology Data #1 Image(s): Chest Image Reviewed: Yes I reviewed the patient's radiology results, Yes I reviewed the patient's radiology image pleural effusions - CT Data CT Scan: Head, Abdomen, Pelvis Time Received: 16:[address] Reviewed: Yes: I have reviewed the patient's CT results, I have viewed the radiologist's interpretation Findings Narrative: IMPRESSION: 1. Cirrhosis with portal hypertension. 2. Somewhat tubular/lobular hyperdensity within the superior portal region. The etiology of this is undetermined. Calcification, partially calcified mass, or partially calcified thrombus is a consideration. Please correlate with parameters. 3. Diffuse moderate amount of ascites. 4. New 15 mm nodular density in the r
[2020-10-13 14:46] LABS: Basophils # 0.1 K/mm3 (0-0.2); Basophils % 1.7 % (0.1-2.0); Eosinophils # 0.3 K/mm3 (0.0-0.4); Eosinophils % 8.4 % (0.1-12.0); Hematocrit 31.6 % (42.0-52.0); Hemoglobin 10.5 g/dL (14.1-18.0); Lymphocytes # 0.6 K/mm3 (0.7-4.5); Lymphocytes % 17.6 % (10-50); Mean Corpuscular HGB Conc 33.3 g/dL (31.8-35.4); Mean Corpuscular Hemoglobin 30.7 pg (27.0-31.2); Mean Corpuscular Volume 92.4 fl (80-94); Mean Platelet Volume 6.8 fl (7.4-10.4); Monocytes # 0.3 K/mm3 (0.1-1.0); Monocytes % 9.1 % (1.7-9.3); Neutrophils % 63.2 % (37.0-80.0); Platelet Count 143 K/mm3 (142-424); Red Blood Count 3.42 M/mm3 (4.60-6.20); White Blood Count 3.2 K/mm3 (4.8-10.8)
[2020-10-13 14:48] LABS: Chloride 97 mmol/L (98-107); Potassium 4.2 mmoL/L (3.5-5.1); Sodium 130 mmol/L (136-145)
[2020-10-13 14:51] LABS: Alanine Aminotransferase 25 U/L (12-78); Albumin Level 2.8 g/dl (3.5-5.0); Albumin/Globulin Ratio 0.7 (1.1-1.8); Alkaline Phosphatase 229 U/L (38-126); Ammonia 78 umol/L (9-30); Anion Gap 7.2 mEq/L (5-15); Aspartate Amino Transferase 46 U/L (17-59); Bilirubin,Total 2.9 mg/dl (0.2-1.3); Blood Urea Nitrogen 9 mg/dl (9-20); Calcium 7.8 mg/dl (8.4-10.2); Carbon Dioxide 30 mmol/L (22.0-30.0); Creatinine Clearance Estimated 94 mL/min (50-200); Estimated Glomerular Filt Rate 84 ml/min (>60); GFR (African American) 101 ML/MIN (>60); Globulin 4.3 g/dL (1.3-3.2); Glucose 218 mg/dl (74-100); Lipase 255 U/L (23-300); Total Protein,Serum 7.1 g/dl (6.3-8.2)
--- NOTE | 2020-10-13 14:52 | PC.NURSE ---
pt going to rad.
[2020-10-13 15:01] LABS: Activated Partial Thrombo Time 29.9 seconds (22.8-30.6); NT Pro Brain Natriuretic Pep. 80.1 pg/mL (0-125)
[2020-10-13 15:05] LABS: Troponin I < 0.01 ng/ml (0.00-0.034)
[2020-10-13 15:10] LABS: INR 1.11 (0.9-1.1)
--- NOTE | 2020-10-13 15:10 | US_ITS ---
PROCEDURE: US PARACENTESIS CLINICAL INDICATION: ascites Abdominal distension COMPARISON: No exams were available for comparison TECHNIQUE: Informed consent was obtain prior to procedure. After appropriate Time out, under aseptic conditions and local anesthesia with 1% buffered lidocaine using sonographic guidance a 6 Lao Aclc-H-Wlrhohlm catheter was inserted into the largest pocket of fluid localized in the right lower quadrant. Approximately 4000 mL of cloudy fluid was drained. Specimen was sent to the lab for analysis. The patient tolerated the procedure well and left the radiology suite in stable condition. FINDINGS: Diffuse ascites IMPRESSION: Successful sonographic guided paracentesis without complication. Dictated by: Skip Fonseca MD 10/13/2020 17:57 Skip Fonseca MD in [facility] 10/13/2020 17:57
[2020-10-13 15:17] LABS: Lactic Acid 2.7 mmol/L (0.7-2.1)
[2020-10-13 15:22] LABS: Thyroid Stimulating Hormone 3.79 uIU/mL (0.465-4.68)
--- NOTE | 2020-10-13 15:24 | PC.NURSE ---
pt still in radiology due to ultrasound.
[2020-10-13 15:38] LABS: Ethyl Alcohol < 10 mg/dl (0-10)
--- NOTE | 2020-10-13 15:38 | PC.NURSE ---
Calling Dr Molina per request
--- NOTE | 2020-10-13 16:08 | PC.NURSE ---
speaking with Tracy at this time.
--- NOTE | 2020-10-13 16:19 | PC.NURSE ---
House called for admission. Patient will be boarding in the ED.
--- NOTE | 2020-10-13 16:20 | PC.NURSE ---
Pt still in radiology.
--- NOTE | 2020-10-13 16:55 | PC.NURSE ---
pt returning from radiology
[2020-10-13 17:00] VITALS: BP 108/58; PULSE 75; O2SAT 99
--- NOTE | 2020-10-13 17:06 | PC.NURSE ---
contacted second floor to check about giving report, spoke with state game warden states no bed available this time. States they do have a discharge pending. Pt will board in ER until bed available.
--- NOTE | 2020-10-13 18:10 | PC.NURSE ---
Report called to Ju[facility]ino on 2nd floor at this time
[2020-10-13 18:31] VITALS: BP 117/54; PULSE 84; RESP 18; TEMP 36.7; O2SAT 98; BMI 29.5
--- NOTE | 2020-10-13 18:52 | PC.NURSE ---
PT IS UNABLE TO COMPLETE MED REC.
[2020-10-13 18:59] LABS: Reflex Lactic Add Lactic Reflex
[2020-10-13 19:06] LABS: POC Glucose,Bedside 145 (70-110)
[2020-10-13 19:14] LABS: Troponin I < 0.01 ng/ml (0.00-0.034)
[2020-10-13 19:17] VITALS: BP 101/65; PULSE 100; RESP 22; TEMP 36.6; O2SAT 98
--- NOTE | 2020-10-13 19:46 | PC.NURSE ---
HE IS AOX4, PT STATES THAT HE IS UNABLE TO VERIFY MEDICATIONS AND THAT HE CANNOT READ OR WRITE. HE DENIES PAIN ON ADMISSION, FSBS WAS OBTAINED AND FOUND TO BE 145 UPON ARRIVAL TO THE FLOOR THEREFORE INSULIN WAS HELD, HE DOES NOT REQUIRE O2 SUPPORT AT TIME OF WRITING. TOLERATED PO INTAKE WELL
[2020-10-13 20:00] VITALS: BP 110/69; PULSE 80; PULSE 82; RESP 19; TEMP 36.5; O2SAT 100
--- NOTE | 2020-10-13 20:06 | HMH.HP ---
*Admission Date: 10/13/20 *Chief complaint: weakness *History of present illness: this patient reports 2 episodes of syncope w/o prodromal sx and no chest pain or palpitations - also has cirrhosis with ascites -he was seen in the ed- Pt sent from PCP office r/t syncople episode and possible need to parancentesis. Pt reports he has had 2 syncople episodes in the past couple weeks. Pt reports episodes happened approx 1 week apart. Pt reports he thought he got too hot while being outside causing hime to pass out. Pt denies pain, dizziness. Pt reports he saw his pcp today r/t his regular check up 70-year-old male presented to the emergency department with some syncopal episodes. Patient has longstanding history of cirrhosis with multiple bouts of ascites. Apparently in the last week or so, the patient has had 2 syncopal episodes. Appear to be exertional in nature. Patient states that he passed out while he was working outside. This occurred approximately 1 week ago. Patient is also noted some worsening abdominal swelling. Feels like his abdomen is more distended than normal. Is not having any focal pain or discomfort. Denies any diarrhea or blood in the stools. Patient is not having any fevers or chills. Denies any headache or change in vision. No focal weakness. No chest pain or shortness of breath. [facility] History I have reviewed the patient's past medical history: Yes Medical History: Reports:: Chronic Obstructive Pulmonary Disease (COPD), Diabetes Mellitus Type 2, Gastroesophageal Reflux Disease(GERD), Hyperlipidemia, Hypertension *Have you ever received a pneumonia vaccine?: No *Have you received a flu vaccine this season?: No Other Surgeries: Yes: No Previous Surgery, Cholecystectomy, Colonoscopy, Other Amputation: No Fractures: No - *Social History Last grade of school completed: 4th or less Smoking Status: Never smoker Alcohol Intake: never Alcohol Intake Frequency:: other Substance Use Type: denies use *Occupational Status:: unemployed Housing: house Household Members: significant other *Travel in the last 8 weeks: None Family Hx:: Diabetes, Heart Attack Review of Systems - Review of Systems Review of systems:: pertinent systems reviewed and negative unless documented below - Constitutional Reports weakness, Denies fever(s) - Eyes Denies change in vision - ENT Denies sore throat - *Cardiovascular Denies chest pain - *Respiratory Denies cough - *Gastrointestinal Reports abdominal pain - *Genitourinary Denies blood in urine - *Musculoskeletal Denies joint pain - Integumentary/Breasts Denies rash - *Neurologic Reports fainting, Denies headache(s) - Psychiatric Denies anxiety Meds Home Medications Medication Instructions Recorded Confirmed Type blood-glucose meter See Dose Instructions .ROUTE 02/20/18 10/13/20 Rx .MEDSUPPLY #1 each lancets 33 gauge See Rx Instructions .ROUTE 11/14/18 10/13/20 Rx .COMPLEX #100 unspecified blood sugar diagnostic See Rx Instructions .ROUTE 11/29/18 10/13/20 Rx .COMPLEX #100 strip hydroxyzine HCl 25 mg tablet 25 mg PO BID PRN #60 tab 03/03/20 10/13/20 Rx albuterol sulfate 90 mcg/actuation 2 puff INHALATION QID PRN #8.5 g 09/09/20 10/13/20 Rx aerosol inhaler hydrocodone 5 mg-acetaminophen 325 1 tab PO DAILY PRN #30 tab 09/16/20 10/13/20 Rx mg tablet Cetirizine HCl 10 mg PO DAILY 10/13/20 10/13/20 History Cyclobenzaprine HCl 10 mg PO DAILY 10/13/20 10/13/20 History [Cyclobenzaprine 10mg Tab*] Duloxetine HCl [Cymbalta] 60 mg PO BID 10/13/20 10/13/20 History Fluticasone/Vilanterol [Breo 1 inh INHALATION DAILY 10/13/20 10/13/20 History Ellipta] Furosemide [Furosemide 20mg Tab*] 20 mg PO DAILY 10/13/20 10/13/20 History Gabapentin 600 mg PO TID 10/13/20 10/13/20 History Nitroglycerin 0.4 mg SUBLINGUAL Q5M 10/13/20 10/13/20 History Omeprazole 40 mg PO DAILY 10/13/20 10/13/20 History Pravastatin Sodium [Pravachol] 40 mg PO DAILY 10/13/20
[2020-10-13 20:50] LABS: POC Glucose,Bedside 156 (70-110)
[2020-10-13 20:55] LABS: Lactic Acid Follow Up (RFLX 1) 1.9 mmol/L (0.7-2.1)
[2020-10-13 21:10] LABS: Troponin I < 0.01 ng/ml (0.00-0.034)
[2020-10-13 23:03] LABS: Appearance,Body Fld. Hazy; Source, Body Fld. Peritoneal Fluid; Volume,Body Fld. 4000 mL
[2020-10-13 23:28] LABS: RBC,Body Fluid < 10 cells/uL (< 10 X 10^3); TNC,Body Fluid < 20 cells/uL (< 1000)
[2020-10-14] VITALS: BP 100/57; PULSE 80; RESP 20; TEMP 36.3; O2SAT 97
[2020-10-14 00:22] LABS: Mononuclear WBCs,Body Fluid 2 %; Polynuclear WBC,Body Fluid 1 %
--- NOTE | 2020-10-14 03:45 | PC.NURSE ---
Patient is A&Ox4. No complaints of pain. Patient remains on RA. VSS. Dressing applied to paracentesis site. Scan amount of drainage on dressing. No further concerns voiced to RN.
[2020-10-14 04:00] VITALS: BP 118/69; PULSE 72; PULSE 78; RESP 20; TEMP 36.6; O2SAT 99
[2020-10-14 04:52] VITALS: BMI 28.8
[2020-10-14 05:03] LABS: POC Glucose,Bedside 162 (70-110)
--- NOTE | 2020-10-14 07:10 | P.CONPHA_ITS ---
[facility] Pharmacy VTE Monitoring - Patient Demographics Admission date: 10/13/20 Report Date: 10/14/20 Time: 07:10 Allergies/Adverse Reactions: Patient Allergies aspirin Allergy (Severe, Verified 10/13/20 13:23) Anaphylaxis Height: 1.73 m Weight: 86.183 kg Patient Problems: Current Active Problems (This Medical Record has been edited. Action required.) Syncope due to orthostatic hypotension (Acute) Dehydration (Acute) Cirrhosis (Acute) - VTE Risk Labs: VTE Related Lab Results Hgb 10.5 g/dL (14.1-18.0) L 10/13/20 14:25 Hct 31.6 % (42.0-52.0) L 10/13/20 14:25 Plt Count 143 K/mm3 (142-424) 10/13/20 14:25 PT 13.0 seconds (10.1-12.5) H 10/13/20 14:25 INR 1.11 (0.9-1.1) H 10/13/20 14:25 APTT 29.9 seconds (22.8-30.6) 10/13/20 14:25 BUN 9 mg/dl (9-20) 10/13/20 14:25 Creatinine 0.90 mg/dl (0.66-1.25) 10/13/20 14:25 Estimated Creat Clear 94 mL/min (50-200) 10/13/20 14:25 Clinical Trial Participant: No - Prophylaxis VTE Prophylaxis Ordered?: Yes Types of VTE Prophylaxis: TEDS Knee High, Pharmacological Pharmacologic Type: Enoxaparin
--- NOTE | 2020-10-14 07:18 | HMH.PHAINT ---
verified home medication list using list from [facility]
[2020-10-14 07:42] VITALS: BP 120/79; PULSE 82; RESP 14; TEMP 36.5; O2SAT 98
[2020-10-14 08:00] VITALS: PULSE 82; RESP 14; O2SAT 98
[2020-10-14 08:50] LABS: Basophils % 1.2 % (0.1-2.0); Eosinophils # 0.3 K/mm3 (0.0-0.4); Eosinophils % 9.7 % (0.1-12.0); Hematocrit 30.1 % (42.0-52.0); Hemoglobin 10.1 g/dL (14.1-18.0); Lymphocytes # 0.5 K/mm3 (0.7-4.5); Lymphocytes % 18.2 % (10-50); Mean Corpuscular HGB Conc 33.7 g/dL (31.8-35.4); Mean Corpuscular Hemoglobin 31.5 pg (27.0-31.2); Mean Corpuscular Volume 93.6 fl (80-94); Monocytes # 0.2 K/mm3 (0.1-1.0); Monocytes % 7.8 % (1.7-9.3); Neutrophils # 1.6 K/mm3 (1.8-7.8); Neutrophils % 63.2 % (37.0-80.0); Platelet Count 125 K/mm3 (142-424); Red Blood Count 3.22 M/mm3 (4.60-6.20); White Blood Count 2.6 K/mm3 (4.8-10.8)
[2020-10-14 08:56] LABS: Alanine Aminotransferase 19 U/L (12-78); Albumin Level 2.3 g/dl (3.5-5.0); Albumin/Globulin Ratio 0.6 (1.1-1.8); Alkaline Phosphatase 219 U/L (38-126); Anion Gap 6.5 mEq/L (5-15); Aspartate Amino Transferase 37 U/L (17-59); Bilirubin,Total 1.9 mg/dl (0.2-1.3); Blood Urea Nitrogen 9 mg/dl (9-20); Calcium 7.6 mg/dl (8.4-10.2); Carbon Dioxide 31 mmol/L (22.0-30.0); Chloride 98 mmol/L (98-107); Creatinine Clearance Estimated 85 mL/min (50-200); Estimated Glomerular Filt Rate 96 ml/min (>60); GFR (African American) 116 ML/MIN (>60); Globulin 3.7 g/dL (1.3-3.2); Glucose 203 mg/dl (74-100); Potassium 4.5 mmoL/L (3.5-5.1); Sodium 131 mmol/L (136-145)
[2020-10-14 09:18] LABS: Microscopic, Urine URINE MICROSCOPIC (MICROSCOPIC)
[2020-10-14 09:22] LABS: Appearance,Urine CLOUDY (Clear); Bilirubin,Urine 1+ (Negative); Blood, Urine 3+ (Negative); Color,Urine AMBER (Yellow); Glucose,Urine (UA) TRACE (Negative); Ketones,Urine Negative (Negative); Leukocyte Esterase,Urine 2+ (Negative); Nitrate,Urine Negative (Negative); Protein,Urine TRACE (Negative); Specific Gravity, Urine 1.025 (1.005-1.030)
[2020-10-14 09:34] LABS: Barbiturates Screen,Urine Negative ng/ml (<200)
[2020-10-14 09:35] LABS: Amphetamine/Metha Screen,Urine Negative ng/ml (<1000); Benzodiazepines Screen,Urine Negative ng/ml (<200)
[2020-10-14 09:36] LABS: Cannabinoid Screen,Urine Negative ng/ml (<50); Cocaine Screen,Urine Negative ng/ml (<300)
[2020-10-14 09:37] LABS: Methadone Screen,Urine Negative ng/ml (<300)
[2020-10-14 09:38] LABS: Opiate Screen,Urine Negative ng/ml (<300)
[2020-10-14 09:39] LABS: Phencyclidine Screen,Urine Negative ng/ml (<25)
--- NOTE | 2020-10-14 09:55 | SW/DCPLANNER ---
Patient voiced this morning that he does not have any transportation. I will provide this patient with transportation information along with [facility] program in [facility]. Patient could potentially discharge home later today.
--- NOTE | 2020-10-14 10:01 | HMH.CNCARD ---
History of Present Illness Consult date: 10/14/20 Requesting physician: Dallin Molina Chief complaint: Dizziness and syncope History of present illness: 70-year-old male admitted to facility with syncopal episode. Patient states he had been sitting outside in the heat and felt that he was going to pass out. Patient states he has had syncopal episodes in the past few weeks. Patient denies any dizziness or palpitations prior to the syncopal episodes. Patient did have paracentesis performed yesterday with 4000 mL of cloudy fluid removed. Patient does have cirrhosis with ascites. Patient states he felt that may be having the fluid taken off caused him to pass out. Patient denies chest pain, tightness or pressure. Patient does complain of shortness of breath but states he has COPD and had been a smoker. Patient stopped smoking 40+ years ago. History of alcoholism. Patient states he stopped drinking alcohol 40+ years ago. Abdomen noted as distended. Patient denies abdominal pain. Patient has no known history of coronary artery disease. Patient is a known diabetic type II controlled. Patient does have history of hyperlipidemia and high blood pressure which is managed by PCP. Patient states he feels that the syncopal episodes are not related to his heart and are mostly due to to him being in the hot weather. Initial work-up was performed in the ED. Serial troponins were negative x2. Hyponatremia noted managed by PCP. Initial EKG revealed sinus rhythm with short NV interval with heart rate of [address] of the head was performed which revealed no acute intracranial findings. Abdominal CTA was performed which revealed a moderate amount of ascites and undetermined calcification partial calcified mass or partial calcified thrombosis. It was also noted that a 15 mm nodule density of the right lung base could be inflammatory or infectious or neoplastic. Small bilateral pleural effusions are noted. Discussed plan of care with Dr. Quevedo. Orders were received from Dr. Quevedo. I did have a discussion with patient regarding having loop recorder placed due to syncopal episodes. Patient declined at this time and feels that the reason why he had the syncopal episode was due to heat. Obtain echocardiogram to assess for LV function and valve status. Pending on the results of the echocardiogram, medication and treatment recommendations may be considered. Please continue to monitor patient. Please notify cardiology of any changes in patient status. Head CT:FINDINGS: No midline shift, mass effect, intracranial hemorrhage, hydrocephalus, or extra-axial fluid collection is evident. There is generalized atrophy with hypoattenuation of the periventricular white matter consistent with microangiopathic changes. The calvarium has an unremarkable appearance. No mastoid effusion. There is moderate mucosal thickening of the ethmoid sinuses. IMPRESSION: No acute intracranial finding Abd CTA:IMPRESSION: 1. Cirrhosis with portal hypertension. 2. Somewhat tubular/lobular hyperdensity within the superior portal region. The etiology of this is undetermined. Calcification, partially calcified mass, or partially calcified thrombus is a consideration. Please correlate with parameters. 3. Diffuse moderate amount of ascites. 4. New 15 mm nodular density in the right lung base which could be inflammatory/infectious or neoplastic. 5. Small bilateral pleural effusions. Thank you for allowing cardiology to participate in the care of this patient. [facility] History I have reviewed the patient's past medical history: Yes Medical History: Reports:: Chronic Obstructive Pulmonary Disease (COPD), Diabetes Mellitus Type 2, Gastroesophageal Reflux Disease(GERD), Hyperlipidemia, Hypertension *Have you ever received a pneumonia vaccine?: No *Have you received a flu vaccine this season?: No Other Surgeries: Yes: No Previous Surgery, Cholecystectom
--- NOTE | 2020-10-14 10:03 | CA_ITS ---
APPROVED REPORT EXAM: Comprehensive 2D, Doppler, and color-flow Echocardiogram Financial Aid Director: HUY Lynch, RVS Ht: 5 ft 8 in Wt: 190lbs BSA: 2.00 BP: 120/79 mmHg Indications: COPD, Hyperlipidemia, HTN,DM, syncope, Ascites 2D Dimensions IVSd 1.12 cm LVEF (Visual) 65.30 % PWd 0.88 cm LA Volume 60.10 mL LVDd 4.72 cm LA Volume Index 30.10 mL/m2 (M/F) 16-34 LVDs 3.03 cm Left Atrium 3.29 cm LVOT 1.81 cm (M/F) 1.5-2.5 M-Mode Dimensions LA Diam 3.75 cm (1.9-4.0) Ao Diam 3.71 cm (2.0-3.7) EPSs 0.32 cm LV Diastology E Decel Time 307.00 (160-240 msec) E/A Ratio 0.81 MED E' 8.80 (< 7 cm/sec) MED A' 11.40 cm/s E'/MED E' Ratio 11.75 (>14) LAT E' 7.70 (<10 cm/sec) LAT A' 15.00 cm/s E/LAT E' Ratio 13.43 (>14) Aortic Valve LVOT Max 171.00 (70-110 cm/s) LVOT VTI 29.16 cm Mitral Valve MV E Max Shadi. 103.00 (40-130 cm/s) MV A Velocity 127.00 (40-130 cm/s) E/A Ratio 0.81 MV Decel. Time 307.00 (160-240 ms) MV PHT 90.00 ms Pulmonary Valve PV Peak Velocity 87.00 (50-150 cm/s) Tricuspid Valve TR P. Velocity 305.00 cm/s RAP Estimate 10.00 mmHg RVSP 47.20 mmHg Left Ventricle Left atrium is mildly enlarged, left ventricle is normal size, mild concentric left ventricular hypertrophy, visually estimated ejection fraction 55% with no regional wall motion abnormality, grade 1 diastolic dysfunction seen without tissue Doppler evidence of raise left atrial pressure. Right Ventricle Right atrium and right ventricle are mildly enlarged with normal contractility. Aortic Valve Aortic valve is minimally thickened and fibrosed, there is no aortic stenosis or aortic insufficiency. Mitral Valve Mitral valve grossly normal, there is mild mitral regurgitation. Tricuspid Valve Tricuspid grossly normal, there is mild tricuspid regurgitation, calculated right ventricular systolic pressure 32 mmHg. Pulmonic Valve Pulmonic valve is poorly visualized. Great Vessels Aortic root is normal size. Pericardium No significant pericardial effusion noted Conclusion 1. Mild biatrial enlargement, normal left ventricular size, mild concentric left ventricular hypertrophy, visually estimated ejection fraction 55% with no regional wall motion abnormality, grade 1 diastolic dysfunction seen without tissue Doppler evidence of raise left atrial pressure. 2. Mildly enlarged right ventricle with normal contractility. 3. Mild mitral and tricuspid regurgitation, calculated right ventricular systolic pressure 32 mmHg. 4. No significant pericardial effusion noted. Electronically signed by : Benito Rivero, 10/14/2020 19:49:54
[2020-10-14 10:50] LABS: POC Glucose,Bedside 170 (70-110)
[2020-10-14 12:00] VITALS: PULSE 80
--- NOTE | 2020-10-14 13:34 | HMH.DCSUM ---
General - General Admission date:: 10/13/20 Discharge date: 10/14/20 HPI HPI: this patient reports 2 episodes of syncope w/o prodromal sx and no chest pain or palpitations - also has cirrhosis with ascites -he was seen in the ed- Pt sent from PCP office r/t syncople episode and possible need to parancentesis. Pt reports he has had 2 syncople episodes in the past couple weeks. Pt reports episodes happened approx 1 week apart. Pt reports he thought he got too hot while being outside causing hime to pass out. Pt denies pain, dizziness. Pt reports he saw his pcp today r/t his regular check up 70-year-old male presented to the emergency department with some syncopal episodes. Patient has longstanding history of cirrhosis with multiple bouts of ascites. Apparently in the last week or so, the patient has had 2 syncopal episodes. Appear to be exertional in nature. Patient states that he passed out while he was working outside. This occurred approximately 1 week ago. Patient is also noted some worsening abdominal swelling. Feels like his abdomen is more distended than normal. Is not having any focal pain or discomfort. Denies any diarrhea or blood in the stools. Patient is not having any fevers or chills. Denies any headache or change in vision. No focal weakness. No chest pain or shortness of breath. Hospital Course Hospital Course: this patient reports 2 episodes of syncope w/o prodromal sx and no chest pain or palpitations - also has cirrhosis with ascites -he was seen in the ed- Pt sent from PCP office r/t syncople episode and possible need to parancentesis. Pt reports he has had 2 syncople episodes in the past couple weeks. Pt reports episodes happened approx 1 week apart. Pt reports he thought he got too hot while being outside causing hime to pass out. Pt denies pain, dizziness. Pt reports he saw his pcp today r/t his regular check up 70-year-old male presented to the emergency department with some syncopal episodes. Patient has longstanding history of cirrhosis with multiple bouts of ascites. Apparently in the last week or so, the patient has had 2 syncopal episodes. Appear to be exertional in nature. Patient states that he passed out while he was working outside. This occurred approximately 1 week ago. Patient is also noted some worsening abdominal swelling. Feels like his abdomen is more distended than normal. Is not having any focal pain or discomfort. Denies any diarrhea or blood in the stools. Patient is not having any fevers or chills. Denies any headache or change in vision. No focal weakness. No chest pain or shortness of breath. 10/13/20 CXR: IMPRESSION: Small bilateral pleural effusions Dictated by: Skip Fonseca MD 10/13/20 Abd/Pelvis CT: FINDINGS: LOWER THORAX: There are small bilateral pleural effusions. In the right lung base there is a nodular opacity along the hemidiaphragm measuring 15 mm which has developed since the previous exam. Etiology is indeterminate. In the left lung base laterally there is a parenchymal opacity which may be due to an area of atelectasis versus a small area of consolidation. There are atelectatic changes in the lung bases. Gynecomastia is noted. There is nonspecific thickening of the distal esophagus and at the GE junction. ABDOMEN & PELVIS: Cirrhotic appearance of the liver with a shrunken liver with irregular margins. Hyperdensity is noted in the superior portal region. This is cephalad to the left portal vein. Has the patient had a prior TIPS procedure?. This is directed toward the inferior vena cava but does not appear to enter into the region of the inferior vena cava. There is mild prominence of the portal vein. Spleen is enlarged. Varices are noted. The adrenal glands have an unremarkable appearance. No renal or ureteral calculi. No hydronephrosis. There is a moderate amount of ascites. Fluid is present in the right inguinal canal and
[2020-10-14 14:39] VITALS: PULSE 80
[2020-10-15 11:12] LABS: Albumin, Body Fluid <0.2 g/dL (Not Estab.); Glucose, Body Fluid 205 mg/dL (.)
== END 2020-10-14 15:10 | disposition home or self-care (01) ==
LOC: ER 16:18 → 2ND 21:50
PROVIDERS: Admitting Provider Emergency Medicine; Emergency Provider Emergency Medicine; PCP Emergency Medicine; Visit Provider Emergency Medicine
DX: R55 Syncope and collapse (principal); Z20.822 Contact with and (suspected) exposure to COVID-19; Z79.51 Long term (current) use of inhaled steroids; Z79.899 Other long term (current) drug therapy; K70.31 Alcoholic cirrhosis of liver with ascites; E55.9 Vitamin D deficiency, unspecified; E11.9 Type 2 diabetes mellitus without complications; J44.9 Chronic obstructive pulmonary disease, unspecified; K21.9 Gastro-esophageal reflux disease without esophagitis; I10 Essential (primary) hypertension; E78.5 Hyperlipidemia, unspecified; Z79.84 Long term (current) use of oral hypoglycemic drugs; I95.1 Orthostatic hypotension; F10.11 Alcohol abuse, in remission; R06.9 Unspecified abnormalities of breathing
CPT/HCPCS: G0378; 36415; 49083; 70450; 71045; 74176; 80053; 80305; 81001; 82042; 82140; 82945; 82962; 83605; 83690; 83880; 84443; 84484; 85025; 85610; 85730; 87040; 87070; 87077; 87086; 87088; 87186; 87205; 89051; 93005; 93270; 93306; 99285; U0003

== ENCOUNTER 2020-10-29 16:00 | Observation (INO) | payer MEDICARE, MEDICAID, SELFPAY ==
[2020-10-29] VITALS (13 sets, daily range): BP systolic 139–176; BP diastolic 74–105; PULSE 79–92; RESP 18; TEMP 36.6–36.8; O2SAT 97–100; BMI 33.0
--- NOTE | 2020-10-29 16:25 | HMH.EDGENADL ---
ED Disposition Clinical Impression: Ascites, Umbilical fistula Disposition: Admitted As Inpatient Condition on Discharge: Good Referrals: Dallin Molina MD [Primary Care Provider] - - Critical Care Critical Care Time: No Attestation: On 10/29/20, the high probability of a clinically significant, sudden or life threatening deterioration of the following system(s) required my full and direct attention, intervention and personal management. The time I documented below is in addition to time spent performing reported procedures but includes the following listed in this critical care notation. 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 will keep NPO. need paracentesis and surgery consult. - Juan F Inquiry Pt receiving controlled substance: No Juan F was queried for this patient: No Vital Signs: 10/29/20 16:03 10/29/20 19:16 Temperature 97.9 F 98.3 F Temperature Source Oral Oral Pulse Rate 83 Pulse Rate [Right] 83 Respiratory Rate 18 18 Blood Pressure 156/74 H Blood Pressure [Right Arm] 176/105 H Blood Pressure Mean [Right Arm] 128 02 Sat by Pulse Oximetry 97 98 Oxygen Delivery Method Room Air Room Air - Lab Data Lab Results 10/29/20 16:45: WBC 6.9, RBC 4.44 L, Hgb 13.9 L, Hct 40.9 L, MCV 92.1, MCH 31.3 H, MCHC 34.0, RDW 14.5, Plt Count 227, MPV 7.9, Neut % (Auto) 76.7, Lymph % (Auto) 12.8, [place] % (Auto) 7.0, Eos % (Auto) 2.3, Baso % (Auto) 1.1, Neut # (Auto) 5.3, Lymph # (Auto) 0.9, [place] # (Auto) 0.5, Eos # (Auto) 0.2, Baso # (Auto) 0.1 10/29/20 16:45: PT 12.9 H, INR 1.10, APTT 29.6 10/29/20 16:45: Sodium 127 L, Potassium 4.3, Chloride 93 L, Carbon Dioxide 26, Anion Gap 12.3, BUN 14, Creatinine 1.20, Estimated Creat Clear 76, Estimated GFR 60, Est GFR ( Amer) 73, Glucose 204 H, Calcium 7.9 L, Total Bilirubin 3.2 H, AST 54, ALT 21, Alkaline Phosphatase 232 H, Total Protein 7.3, Albumin 2.8 L, Globulin 4.5 H, Albumin/Globulin Ratio 0.6 L 10/29/20 16:45: Lactate 3.3 H 10/29/20 16:45: Ammonia 16 10/29/20 16:45: Amylase 74, Lipase 184 10/29/20 19:07: SARS-CoV-2 (PCR) Not detected, Influenza A Untype (PCR) Not detected, Influenza Type B (PCR) Not detected Result diagrams: 10/29/20 16:45 10/29/20 16:45 Orders (Tests/Meds): ED MEDICATIONS Generic Name Dose Route Start Last Admin Trade Name Freq PRN Reason Stop Dose Admin Sodium Chloride 1,000 mls @ 999 mls/hr 10/29/20 17:30 10/29/20 17:39 Sod Chlor 0.9% 1000ml Bag IV 10/29/20 18:30 999 mls/hr .[id number] ASIA Administration Discontinued Medications Generic Name Dose Route Start Last Admin Trade Name Freq PRN Reason Stop Dose Admin Ceftriaxone Sodium 2 gm/ 50 mls @ 100 mls/hr 10/29/20 17:05 10/29/20 17:16 Sodium Chloride IV 10/29/20 17:34 100 mls/hr ONCE ONE Administration Iopamidol 75 ml 10/29/20 17:56 10/29/20 17:57 Iopamidol-370 (76%);100ml Bottle IV 10/29/20 17:57 75 ml ONCE ONE Administration Ondansetron HCl 4 mg 10/29/20 16:49 10/29/20 16:50 Ondansetron 4mg/2ml Vial IV 10/29/20 16:50 4 mg ONCE ONE Administration Sodium Chloride 10 ml 10/29/20 17:56 10/29/20 17:57 Sodium Chloride 0.9% 10ml Syr (Rad Only) IV 10/29/20 17:57 10 ml ONCE ONE Administration ORDERS Category Date Time Status C-Reactive Protein Stat Lab 10/29/20 16:45 Received ESR [Erythrocyte Sedimentation Rate] Stat Lab 10/29/20 16:45 Received Blood Culture Stat Micro 10/29/20 16:45 Received General Adult HPI - General Stated complaint: belly button pouring fluid out, vomiting, stomach Time Seen by Provider: 10/29/20 16:25 - History of Present Illness HPI narrative: 70-year-old male with a history of liver cirrhosis for many years and ascitis, he had multiple paracentesis in the past. Also he has umbilical hernia. He started losing ascitic fluid from the umbili
--- NOTE | 2020-10-29 16:33 | CT_ITS ---
PROCEDURE INFORMATION: Exam: CT Abdomen And Pelvis With Contrast Exam date and time: 10/29/2020 4:33 PM Age: 70 years old Clinical indication: Abdominal pain; Additional info: Luq pain and umbilical drainage TECHNIQUE: Imaging protocol: Computed tomography of the abdomen and pelvis with contrast. Radiation optimization: All CT scans at this facility use at least one of these dose optimization techniques: automated exposure control; mA and/or kV adjustment per patient size (includes targeted exams where dose is matched to clinical indication); or iterative reconstruction. Contrast material: ISOVUE; Contrast volume: 75 ml; Contrast route: IV; COMPARISON: CT ABDOMEN PELVIS WO CON 10/13/2020 3:01 PM FINDINGS: Lungs: Calcified nodule in the left base. Mild bibasilar atelectasis. Mediastinal space: Esophageal varices are seen. Liver: Liver is heterogeneous and nodular. Gallbladder and bile ducts: Status post cholecystectomy. No significant biliary dilatation. Pancreas: Normal. No ductal dilation. Spleen: Patchy hypoperfusion of the spleen is noted. This could be due to partial infarction or embolus. It does not have typical appearance of early enhancement. The spleen remains enlarged. A few tiny calcified granulomata are seen. Adrenal glands: Normal. No mass. Kidneys and ureters: Normal. No hydronephrosis. Stomach and bowel: Some diffuse bowel wall thickening is noted that is favored to be due to portal hypertension. This is most significant in the duodenum and in the proximal colon. Inflammation is not entirely excluded. Appendix: No evidence of appendicitis. Intraperitoneal space: Small volume ascites noted. Vasculature: Paraesophageal varices Lymph nodes: Mildly prominent mesenteric and retroperitoneal lymph nodes. Urinary bladder: Unremarkable as visualized. Reproductive: Unremarkable as visualized. Bones/joints: No aggressive appearing osseous lesions Soft tissues: A 30 x 36 mm hypodensity in the right paraspinous musculature is again seen. No change. It is indeterminate. It was noticed on lumbar MR from 2019. A simple appearing fluid collection in the right inguinal region is unchanged. It measures about 4 x 3 cm. Small periumbilical hernia. IMPRESSION: 1. Patchy splenic hypoenhancement concerning for partial /incomplete infarction. 2. Cause for umbilical drainage not identified, but small volume ascites is present and again fluid is seen in the small periumbilical hernia. 3. Findings compatible with cirrhosis portal hypertension. Bowel wall thickening is probably related. Paraesophageal varices noted. 4. Of 36 x 30 mm hypodensity in the right paraspinous musculature has been present since 2019. Clinical correlation recommended. This could represent a neoplasm.
[2020-10-29 17:13] LABS: Basophils # 0.1 K/mm3 (0-0.2); Basophils % 1.1 % (0.1-2.0); Eosinophils # 0.2 K/mm3 (0.0-0.4); Eosinophils % 2.3 % (0.1-12.0); Hematocrit 40.9 % (42.0-52.0); Hemoglobin 13.9 g/dL (14.1-18.0); Lymphocytes # 0.9 K/mm3 (0.7-4.5); Lymphocytes % 12.8 % (10-50); Mean Corpuscular Hemoglobin 31.3 pg (27.0-31.2); Mean Corpuscular Volume 92.1 fl (80-94); Mean Platelet Volume 7.9 fl (7.4-10.4); Monocytes # 0.5 K/mm3 (0.1-1.0); Neutrophils # 5.3 K/mm3 (1.8-7.8); Neutrophils % 76.7 % (37.0-80.0); Platelet Count 227 K/mm3 (142-424); Red Blood Count 4.44 M/mm3 (4.60-6.20); Red Cell Distribution Width 14.5 % (11.5-17.5); White Blood Count 6.9 K/mm3 (4.8-10.8)
[2020-10-29 17:19] LABS: Chloride 93 mmol/L (98-107); Potassium 4.3 mmoL/L (3.5-5.1); Sodium 127 mmol/L (136-145)
[2020-10-29 17:21] LABS: Activated Partial Thrombo Time 29.6 seconds (22.8-30.6); Lactic Acid 3.3 mmol/L (0.7-2.1); Prothrombin Time 12.9 seconds (10.1-12.5)
[2020-10-29 17:22] LABS: Alanine Aminotransferase 21 U/L (12-78); Albumin Level 2.8 g/dl (3.5-5.0); Albumin/Globulin Ratio 0.6 (1.1-1.8); Alkaline Phosphatase 232 U/L (38-126); Ammonia 16 umol/L (9-30); Aspartate Amino Transferase 54 U/L (17-59); Bilirubin,Total 3.2 mg/dl (0.2-1.3); Blood Urea Nitrogen 14 mg/dl (9-20); Calcium 7.9 mg/dl (8.4-10.2); Creatinine Clearance Estimated 76 mL/min (50-200); Estimated Glomerular Filt Rate 60 ml/min (>60); GFR (African American) 73 ML/MIN (>60); Globulin 4.5 g/dL (1.3-3.2); Glucose 204 mg/dl (74-100); Total Protein,Serum 7.3 g/dl (6.3-8.2)
--- NOTE | 2020-10-29 17:35 | PC.NURSE ---
pt to Ct
[2020-10-29 17:44] LABS: Amylase 74 U/L (30-110); Lipase 184 U/L (23-300)
[2020-10-29 17:51] LABS: Anion Gap 12.3 mEq/L (5-15); Carbon Dioxide 26 mmol/L (22.0-30.0)
[2020-10-29 19:15] LABS: Coronavirus 19, PCR Not Detected (NotDetected); Influenza A, PCR Not Detected (NotDetected); Influenza B, PCR Not Detected (NotDetected)
--- NOTE | 2020-10-29 19:15 | PC.NURSE ---
Gave status update to patient girlfriend with patient permission
--- NOTE | 2020-10-29 19:48 | PC.NURSE ---
dr dotson returned call
--- NOTE | 2020-10-29 19:57 | PC.NURSE ---
called for bed assignment. pt is admitted to [facility] for gabriela, liver cirrhosis, ascites,umbilical fistula
[2020-10-29 20:04] LABS: C-Reactive Protein 36.8 mg/L (0-4)
[2020-10-29 20:18] LABS: Erythrocyte Sedimentation Rate 32 mm/hr (0-20)
[2020-10-29 21:04] LABS: Reflex Lactic Add Lactic Reflex
[2020-10-29 22:05] LABS: Lactic Acid Follow Up (RFLX 1) 3.5 mmol/L (0.7-2.1)
--- NOTE | 2020-10-29 23:20 | PC.NURSE ---
report called at thsi time
--- NOTE | 2020-10-29 23:26 | PC.NURSE ---
patient up to floor via wheelchair.
[2020-10-29 23:29] LABS: Reflex Lactic (2 hrs) Add Lactic Reflex
[2020-10-30] VITALS: BP 161/87; PULSE 76; RESP 18; TEMP 36.3; O2SAT 96
--- NOTE | 2020-10-30 00:11 | PC.NURSE ---
Critical Lactic 4.0 reported to this nurse per Shefali Eden. name and verified
[2020-10-30 01:25] VITALS: BMI 21.9
[2020-10-30 03:54] VITALS: BP 139/77; PULSE 93; RESP 16; TEMP 36.4; O2SAT 98
[2020-10-30 04:35] VITALS: BP 137/80; PULSE 92; RESP 18; TEMP 36.3; O2SAT 98
--- NOTE | 2020-10-30 07:04 | HMH.GSCON ---
*Admission Date: 10/30/20 *Reason for consult:: Umbilical drainage; periumbilical hernia *History of present illness: This is a 70-year-old gentleman seen in consultation from the primary service for evaluation management of umbilical drainage and periumbilical hernia. Please see evaluation from emergency department forwarded the below. Forwarded from emergency department evaluation: General Adult HPI - General Stated complaint: belly button pouring fluid out, vomiting, stomach Time Seen by Provider: 10/29/20 16:25 - History of Present Illness HPI narrative: 70-year-old male with a history of liver cirrhosis for many years and ascitis, he had multiple paracentesis in the past. Also he has umbilical hernia. He started losing ascitic fluid from the umbilical area for the past 3 days he has wet his pants several times and the swelling of his stomach decreased. He vomited one time today. He denies any fever or chills. He has a chronic abdominal pain. Denies any chest pain. Onset (ago): day(s) (3 days) Review of Systems - Constitutional Denies chills - ENT Denies difficulty swallowing - *Cardiovascular Denies chest pain - *Gastrointestinal Reports nausea [facility] History Medical History: Reports:: Cancer, Chronic Obstructive Pulmonary Disease (COPD), Coronary Artery Disease, Diabetes Mellitus Type 2, Gastroesophageal Reflux Disease(GERD), Hyperlipidemia, Hypertension, Myocardial Infarction Denies:: Diabetes Mellitus Type 1 *Have you ever received a pneumonia vaccine?: Yes *Have you received a flu vaccine this season?: Yes Other Surgeries: Yes: No Previous Surgery, Cholecystectomy, Colonoscopy, Other Amputation: No Fractures: No - *Social History Last grade of school completed: 4th or less Smoking Status: Former smoker Alcohol Intake: former Alcohol Intake Frequency:: other Substance Use Type: denies use *Occupational Status:: retired Housing: homeless Household Members: significant other *Travel in the last 8 weeks: None Family Hx:: Unable to obtain Meds Home Medications Medication Instructions Recorded Confirmed Type hydroxyzine HCl 25 mg tablet 25 mg PO BID PRN #60 tab 03/03/20 10/29/20 Rx albuterol sulfate 90 mcg/actuation 2 puff INHALATION QID PRN #8.5 g 09/09/20 10/29/20 Rx aerosol inhaler hydrocodone 5 mg-acetaminophen 325 1 tab PO DAILY PRN #30 tab 09/16/20 10/29/20 Rx mg tablet Cetirizine HCl 10 mg PO DAILY 10/13/20 10/29/20 History Cyclobenzaprine HCl 10 mg PO DAILYP PRN 10/13/20 10/29/20 History [Cyclobenzaprine 10mg Tab*] Duloxetine HCl [Cymbalta] 60 mg PO BID 10/13/20 10/29/20 History Fluticasone/Vilanterol [Breo 1 inh INHALATION DAILY 10/13/20 10/29/20 History Ellipta 100-25 Mcg INH] Furosemide [Furosemide 20mg Tab*] 20 mg PO DAILY 10/13/20 10/29/20 History Gabapentin 600 mg PO TID 10/13/20 10/29/20 History Nitroglycerin 0.4 mg SUBLINGUAL Q5MINP PRN 10/13/20 10/29/20 History Omeprazole 40 mg PO DAILY 10/13/20 10/29/20 History Pravastatin Sodium [Pravachol] 40 mg PO DAILY 10/13/20 10/29/20 History Spironolactone 100 mg PO DAILY 10/13/20 10/29/20 History lisinopriL [Lisinopril 2.5mg Tab] 2.5 mg PO DAILY 10/13/20 10/29/20 History Tamsulosin HCl [Flomax 0.4mg 0.4 mg PO HS 10/14/20 10/29/20 History capsule] glipiZIDE [Glipizide] See Rx Instructions .ROUTE .COMPLEX 10/29/20 10/29/20 History Allergies Allergy/AdvReac Type Severity Reaction Status Date / Time aspirin Allergy Severe Anaphylaxis Verified 10/13/20 13:23 Exam Vital signs and Labs for Last 24 Hours: Temp Pulse Resp BP Pulse Ox 97.4 F L 92 H 18 137/80 98 10/30/20 04:35 10/30/20 04:35 10/30/20 04:35 10/30/20 04:35 10/30/20 04:35 Laboratory Results - last 24 hr 10/29/20 16:45: WBC 6.9, RBC 4.44 L, Hgb 13.9 L, Hct 40.9 L, MCV 92.1, MCH 31.3 H, MCHC 34.0, RDW 14.5, Plt Count 227, MPV 7.9, Neut % (Auto) 76.7, Lymph % (Auto) 12.8, [place] % (Auto) 7.0, Eos % (Auto) 2.3, Baso % (Auto) 1.1, Neut # (Aut
--- NOTE | 2020-10-30 07:19 | HMH.PHAVTE ---
[facility] Pharmacy VTE Monitoring - Patient Demographics Admission date: 10/29/20 Report Date: 10/30/20 Time: 07:19 Allergies/Adverse Reactions: Patient Allergies aspirin Allergy (Severe, Verified 10/13/20 13:23) Anaphylaxis Height: 1.96 m Weight: 84 kg Patient Problems: Current Active Problems (This Medical Record has been edited. Action required.) Ascites (Acute) Umbilical fistula (Acute) Periumbilical hernia (Acute) Cirrhosis (Acute) - VTE Risk Labs: VTE Related Lab Results Hgb 13.9 g/dL (14.1-18.0) L 10/29/20 16:45 Hct 40.9 % (42.0-52.0) L 10/29/20 16:45 Plt Count 227 K/mm3 (142-424) 10/29/20 16:45 PT 12.9 seconds (10.1-12.5) H 10/29/20 16:45 INR 1.10 (0.9-1.1) 10/29/20 16:45 APTT 29.6 seconds (22.8-30.6) 10/29/20 16:45 BUN 14 mg/dl (9-20) 10/29/20 16:45 Creatinine 1.20 mg/dl (0.66-1.25) 10/29/20 16:45 Estimated Creat Clear 76 mL/min (50-200) 10/29/20 16:45 Was VTE Risk Assessment Performed: Yes VTE Score: 4 VTE Risk Level: Low Risk Clinical Trial Participant: No - Prophylaxis VTE Prophylaxis Ordered?: Yes Types of VTE Prophylaxis: TEDS Knee High Location of Applied Device: Not Applicable
--- NOTE | 2020-10-30 07:24 | HMH.PHAINT ---
home medication list clarified using list from [facility]
[2020-10-30 07:28] VITALS: BP 128/75; PULSE 88; RESP 15; TEMP 36.9; O2SAT 100
[2020-10-30 08:14] LABS: Basophils % 0.4 % (0.1-2.0); Eosinophils # 0.1 K/mm3 (0.0-0.4); Eosinophils % 0.5 % (0.1-12.0); Hematocrit 36.3 % (42.0-52.0); Hemoglobin 12.9 g/dL (14.1-18.0); Lymphocytes # 0.9 K/mm3 (0.7-4.5); Lymphocytes % 7.6 % (10-50); Mean Corpuscular HGB Conc 35.4 g/dL (31.8-35.4); Mean Corpuscular Hemoglobin 31.7 pg (27.0-31.2); Mean Corpuscular Volume 89.4 fl (80-94); Mean Platelet Volume 8.1 fl (7.4-10.4); Monocytes # 0.8 K/mm3 (0.1-1.0); Neutrophils # 9.7 K/mm3 (1.8-7.8); Neutrophils % 84.5 % (37.0-80.0); Platelet Count 190 K/mm3 (142-424); Red Blood Count 4.06 M/mm3 (4.60-6.20); Red Cell Distribution Width 14.7 % (11.5-17.5); White Blood Count 11.4 K/mm3 (4.8-10.8)
[2020-10-30 08:30] LABS: Chloride 97 mmol/L (98-107); Potassium 4.7 mmoL/L (3.5-5.1); Sodium 127 mmol/L (136-145)
[2020-10-30 08:32] LABS: Alanine Aminotransferase 22 U/L (12-78); Aspartate Amino Transferase 73 U/L (17-59); Blood Urea Nitrogen 18 mg/dl (9-20); Creatinine Clearance Estimated 83 mL/min (50-200); Estimated Glomerular Filt Rate 74 ml/min (>60); GFR (African American) 90 ML/MIN (>60)
[2020-10-30 08:33] LABS: Albumin Level 2.3 g/dl (3.5-5.0); Albumin/Globulin Ratio 0.6 (1.1-1.8); Alkaline Phosphatase 198 U/L (38-126); Anion Gap 7.7 mEq/L (5-15); Bilirubin,Total 2.1 mg/dl (0.2-1.3); Calcium 7.5 mg/dl (8.4-10.2); Carbon Dioxide 27 mmol/L (22.0-30.0); Glucose 129 mg/dl (74-100); Total Protein,Serum 6.3 g/dl (6.3-8.2)
--- NOTE | 2020-10-30 09:26 | HMH.HP ---
*Admission Date: 10/29/20 *Chief complaint: Abdominal Pain *History of present illness: 70-year-old male with a history of liver cirrhosis for many years and ascitis, he had multiple paracentesis in the past. Also he has umbilical hernia. He started losing ascitic fluid from the umbilical area for the past 3 days he has wet his pants several times and the swelling of his stomach decreased. He vomited one time today. He denies any fever or chills. He has a chronic abdominal pain. Denies any chest pain. 10/29/20 Abd/Pelvic CT: FINDINGS: Lungs: Calcified nodule in the left base. Mild bibasilar atelectasis. Mediastinal space: Esophageal varices are seen. Liver: Liver is heterogeneous and nodular. Gallbladder and bile ducts: Status post cholecystectomy. No significant biliary dilatation. Pancreas: Normal. No ductal dilation. Spleen: Patchy hypoperfusion of the spleen is noted. This could be due to partial infarction or embolus. It does not have typical appearance of early enhancement. The spleen remains enlarged. A few tiny calcified granulomata are seen. Adrenal glands: Normal. No mass. Kidneys and ureters: Normal. No hydronephrosis. Stomach and bowel: Some diffuse bowel wall thickening is noted that is favored to be due to portal hypertension. This is most significant in the duodenum and in the proximal colon. Inflammation is not entirely excluded. Appendix: No evidence of appendicitis. Intraperitoneal space: Small volume ascites noted. Vasculature: Paraesophageal varices Lymph nodes: Mildly prominent mesenteric and retroperitoneal lymph nodes. Urinary bladder: Unremarkable as visualized. Reproductive: Unremarkable as visualized. Bones/joints: No aggressive appearing osseous lesions Soft tissues: A 30 x 36 mm hypodensity in the right paraspinous musculature is again seen. No change. It is indeterminate. It was noticed on lumbar MR from 2019. A simple appearing fluid collection in the right inguinal region is unchanged. It measures about 4 x 3 cm. Small periumbilical hernia. IMPRESSION: 1. Patchy splenic hypoenhancement concerning for partial /incomplete infarction. 2. Cause for umbilical drainage not identified, but small volume ascites is present and again fluid is seen in the small periumbilical hernia. 3. Findings compatible with cirrhosis portal hypertension. Bowel wall thickening is probably related. Paraesophageal varices noted. 4. Of 36 x 30 mm hypodensity in the right paraspinous musculature has been present since 2019. Clinical correlation recommended. This could represent a neoplasm. Electronically signed by Raffaele Gardiner MD 70-year-old male patient lying in bed resting quietly he reports no abdominal pain today dressing to abdomen with clear drainage coming out of umbilical area, abdomen is slightly distended. [facility] History I have reviewed the patient's past medical history: Yes Medical History: Reports:: Cancer, Chronic Obstructive Pulmonary Disease (COPD), Coronary Artery Disease, Diabetes Mellitus Type 2, Gastroesophageal Reflux Disease(GERD), Hyperlipidemia, Hypertension, Myocardial Infarction Denies:: Diabetes Mellitus Type 1 *Have you ever received a pneumonia vaccine?: Yes *Have you received a flu vaccine this season?: Yes Other Surgeries: Yes: No Previous Surgery, Cholecystectomy, Colonoscopy, Other Amputation: No Fractures: No - *Social History Last grade of school completed: 4th or less Smoking Status: Former smoker Alcohol Intake: former Alcohol Intake Frequency:: other Substance Use Type: denies use *Occupational Status:: retired Housing: homeless Household Members: significant other *Travel in the last 8 weeks: None Family Hx:: Unable to obtain Review of Systems - Review of Systems Review of systems:: pertinent systems reviewed and negative unless documented below - Constitutional Reports fatigue, Denies body ache(s), Denies headache(s
[2020-10-30 14:24] LABS: Chloride 97 mmol/L (98-107); Potassium 4.9 mmoL/L (3.5-5.1); Sodium 127 mmol/L (136-145)
[2020-10-30 14:27] LABS: Alanine Aminotransferase 19 U/L (12-78); Albumin Level 2.2 g/dl (3.5-5.0); Albumin/Globulin Ratio 0.6 (1.1-1.8); Alkaline Phosphatase 179 U/L (38-126); Anion Gap 8.9 mEq/L (5-15); Aspartate Amino Transferase 73 U/L (17-59); Bilirubin,Total 2.1 mg/dl (0.2-1.3); Blood Urea Nitrogen 18 mg/dl (9-20); Calcium 7.6 mg/dl (8.4-10.2); Carbon Dioxide 26 mmol/L (22.0-30.0); Creatinine Clearance Estimated 83 mL/min (50-200); Estimated Glomerular Filt Rate 74 ml/min (>60); GFR (African American) 90 ML/MIN (>60); Globulin 3.9 g/dL (1.3-3.2); Glucose 98 mg/dl (74-100); Total Protein,Serum 6.1 g/dl (6.3-8.2)
--- NOTE | 2020-10-30 14:32 | PC.NURSE ---
Pt to have abdominal dressing changes 2x daily and as needed. Clean area with alcohol soaked 4x4s. Wet to dry dressing using alcohol. 4x4 rolled into ball damp with alcohol cover by dry 4x4. Add 4x4 as needed for pressure. Cover with tape. Use abdominal binder if needed. per Dr. Carey.
[2020-10-30 14:35] LABS: Lactate Dehydrogenase 364 U/L (313-618)
[2020-10-30 16:00] VITALS: BP 106/70; PULSE 71; RESP 18; TEMP 36.3; O2SAT 96
--- NOTE | 2020-10-30 16:37 | PC.NURSE ---
No acute changes this shift. Pt is a+o x2. Pt is sometimes confused but is easily reoriented. Abdominal dressing was changed 3x thus far. Dressing currently CDI. Pt able to turn self and ambulate to br with 1x assist. Pt currently laying in bed watching tv. Call light within reach. Will continue to monitor.
[2020-10-30 20:00] VITALS: BP 109/62; PULSE 81; RESP 16; TEMP 36.3; O2SAT 99
--- NOTE | 2020-10-30 21:31 | PC.NURSE ---
abdominal dressing changed. Umbilical site cleaned with alcohol and wet to dry dressing applied and reinforced with tape.
--- NOTE | 2020-10-31 03:40 | PC.NURSE ---
Patient A&Ox4 and no complaints of pain. Patient was pleasant and cooperative. Patient's abd dressing is still clean, dry and intact. Patient rested most of shift. No further concerns noted.
[2020-10-31 04:00] VITALS: BP 107/68; PULSE 95; RESP 16; TEMP 36.5; O2SAT 97
[2020-10-31 05:42] VITALS: BMI 17.6
--- NOTE | 2020-10-31 07:00 | P.PN_ITS ---
Subjective Patient reports: no new complaints Narrative: Per nursing, the amount of drainage has decreased dramatically. Progress Note: A&P (1) Periumbilical hernia Status: Acute (2) Ascites Status: Acute (3) Cirrhosis Status: Acute (4) BMI 22.0-22.9, adult Status: Acute (5) COPD (chronic obstructive pulmonary disease) Status: Acute (6) Diabetes mellitus Status: Acute Assessment and Plan for All Diagnoses:: The amount of drainage at umbilicus has declined significantly. There has been no sign of active infection. Compression dressings with alcohol prep have been implemented. Evaluation of the patient's CT scan reveals no sign of large complex umbilical hernia or incarcerated hernia. Focal tissue thickening at the site is noted. Continue antibiotics as per primary service Continue compression dressings Continue treatment for ascites as per primary service Exam Vital signs and Labs for Last 24 Hours: Temp Pulse Resp BP Pulse Ox 97.7 F 95 H 16 107/68 L 97 10/31/20 04:00 10/31/20 04:00 10/31/20 04:00 10/31/20 04:00 10/31/20 04:00 Laboratory Results - last 24 hr 10/30/20 08:08: WBC 11.4 H D, RBC 4.06 L, Hgb 12.9 L, Hct 36.3 L, MCV 89.4, MCH 31.7 H, MCHC 35.4, RDW 14.7, Plt Count 190, MPV 8.1, Neut % (Auto) 84.5 H, Lymph % (Auto) 7.6 L, [place] % (Auto) 7.0, Eos % (Auto) 0.5, Baso % (Auto) 0.4, Neut # (Auto) 9.7 H, Lymph # (Auto) 0.9, [place] # (Auto) 0.8, Eos # (Auto) 0.1, Baso # (Auto) 0.0 10/30/20 08:08: Sodium 127 L, Potassium 4.7, Chloride 97 L, Carbon Dioxide 27, Anion Gap 7.7, BUN 18 D, Creatinine 1.00, Estimated Creat Clear 83, Estimated GFR 74, Est GFR ( Amer) 90 D, Glucose 129 H D, Calcium 7.5 L, Total Bilirubin 2.1 H, AST 73 H D, ALT 22, Alkaline Phosphatase 198 H, Total Protein 6.3, Albumin 2.3 L D, Globulin 4.0 H, Albumin/Globulin Ratio 0.6 L 10/30/20 13:50: Sodium 127 L, Potassium 4.9, Chloride 97 L, Carbon Dioxide 26, Anion Gap 8.9, BUN 18, Creatinine 1.00, Estimated Creat Clear 83, Estimated GFR 74, Est GFR ( Amer) 90, Glucose 98 D, Calcium 7.6 L, Total Bilirubin 2.1 H, AST 73 H, ALT 19, Alkaline Phosphatase 179 H, Lactate Dehydrogenase 364, Total Protein 6.1 L, Albumin 2.2 L, Globulin 3.9 H, Albumin/Globulin Ratio 0.6 L I & O for Last 24 hours: Intake & Output 10/28/20 10/29/20 10/30/20 10/31/20 11:59 11:59 11:59 11:59 Intake Total 499 / 499 Balance 499 / 499 Weight 185 lb 3 oz 150 lb - Constitutional no acute distress - *Routine Respiratory Exam Absent: respiratory distress - *Routine Cardiovascular Exam Absent: tachycardia - *Routine Abdominal Exam Present: soft Comments: Minimal drainage at umbilicus. No erythema. No necrosis.
[2020-10-31 07:49] LABS: Basophils # 0.1 K/mm3 (0-0.2); Basophils % 0.4 % (0.1-2.0); Eosinophils # 0.1 K/mm3 (0.0-0.4); Eosinophils % 0.5 % (0.1-12.0); Hematocrit 32.6 % (42.0-52.0); Hemoglobin 11.8 g/dL (14.1-18.0); Lymphocytes # 1.1 K/mm3 (0.7-4.5); Lymphocytes % 8.8 % (10-50); Mean Corpuscular Hemoglobin 32.5 pg (27.0-31.2); Mean Corpuscular Volume 90.1 fl (80-94); Mean Platelet Volume 7.7 fl (7.4-10.4); Monocytes # 1.2 K/mm3 (0.1-1.0); Monocytes % 9.1 % (1.7-9.3); Neutrophils # 10.6 K/mm3 (1.8-7.8); Neutrophils % 81.3 % (37.0-80.0); Platelet Count 153 K/mm3 (142-424); Red Blood Count 3.62 M/mm3 (4.60-6.20); Red Cell Distribution Width 14.6 % (11.5-17.5)
[2020-10-31 07:55] VITALS: BP 106/77; PULSE 101; RESP 16; TEMP 36.3; O2SAT 91
[2020-10-31 08:09] LABS: Chloride 97 mmol/L (98-107); Potassium 4.6 mmoL/L (3.5-5.1); Sodium 126 mmol/L (136-145)
[2020-10-31 08:12] LABS: Anion Gap 8.6 mEq/L (5-15); Blood Urea Nitrogen 21 mg/dl (9-20); Calcium 7.4 mg/dl (8.4-10.2); Carbon Dioxide 25 mmol/L (22.0-30.0); Creatinine Clearance Estimated 67 mL/min (50-200); Estimated Glomerular Filt Rate 84 ml/min (>60); GFR (African American) 101 ML/MIN (>60); Glucose 121 mg/dl (74-100)
[2020-10-31 08:15] LABS: Alanine Aminotransferase 20 U/L (12-78); Albumin Level 2.2 g/dl (3.5-5.0); Alkaline Phosphatase 151 U/L (38-126); Aspartate Amino Transferase 69 U/L (17-59); Bilirubin,Direct 0.7 mg/dl (0.0-0.4); Bilirubin,Indirect 1.2 mg/dL (0.0-0.9); Bilirubin,Total 1.9 mg/dl (0.2-1.3); Bilirubin,Unconjugated 1.2 mg/dL (0.0-1.1)
[2020-10-31 09:04] LABS: Ammonia 22 umol/L (9-30)
--- NOTE | 2020-10-31 09:15 | HMH.DCSUM ---
General - General Admission date:: 10/29/20 Discharge date: 10/31/20 HPI HPI: 70-year-old male with a history of liver cirrhosis for many years and ascitis, he had multiple paracentesis in the past. Also he has umbilical hernia. He started losing ascitic fluid from the umbilical area for the past 3 days he has wet his pants several times and the swelling of his stomach decreased. He vomited one time today. He denies any fever or chills. He has a chronic abdominal pain. Denies any chest pain. 10/29/20 Abd/Pelvic CT: FINDINGS: Lungs: Calcified nodule in the left base. Mild bibasilar atelectasis. Mediastinal space: Esophageal varices are seen. Liver: Liver is heterogeneous and nodular. Gallbladder and bile ducts: Status post cholecystectomy. No significant biliary dilatation. Pancreas: Normal. No ductal dilation. Spleen: Patchy hypoperfusion of the spleen is noted. This could be due to partial infarction or embolus. It does not have typical appearance of early enhancement. The spleen remains enlarged. A few tiny calcified granulomata are seen. Adrenal glands: Normal. No mass. Kidneys and ureters: Normal. No hydronephrosis. Stomach and bowel: Some diffuse bowel wall thickening is noted that is favored to be due to portal hypertension. This is most significant in the duodenum and in the proximal colon. Inflammation is not entirely excluded. Appendix: No evidence of appendicitis. Intraperitoneal space: Small volume ascites noted. Vasculature: Paraesophageal varices Lymph nodes: Mildly prominent mesenteric and retroperitoneal lymph nodes. Urinary bladder: Unremarkable as visualized. Reproductive: Unremarkable as visualized. Bones/joints: No aggressive appearing osseous lesions Soft tissues: A 30 x 36 mm hypodensity in the right paraspinous musculature is again seen. No change. It is indeterminate. It was noticed on lumbar MR from 2019. A simple appearing fluid collection in the right inguinal region is unchanged. It measures about 4 x 3 cm. Small periumbilical hernia. IMPRESSION: 1. Patchy splenic hypoenhancement concerning for partial /incomplete infarction. 2. Cause for umbilical drainage not identified, but small volume ascites is present and again fluid is seen in the small periumbilical hernia. 3. Findings compatible with cirrhosis portal hypertension. Bowel wall thickening is probably related. Paraesophageal varices noted. 4. Of 36 x 30 mm hypodensity in the right paraspinous musculature has been present since 2019. Clinical correlation recommended. This could represent a neoplasm. Electronically signed by Raffaele Gardiner MD 70-year-old male patient lying in bed resting quietly he reports no abdominal pain today dressing to abdomen with clear drainage coming out of umbilical area, abdomen is slightly distended. Hospital Course Hospital Course: Laboratory Tests 10/29/20 10/29/20 10/29/20 16:45 16:45 16:45 WBC 6.9 RBC 4.44 L Hgb 13.9 L Hct 40.9 L MCV 92.1 MCH 31.3 H MCHC 34.0 RDW 14.5 Plt Count 227 MPV 7.9 Neut % (Auto) 76.7 Lymph % (Auto) 12.8 [place] % (Auto) 7.0 Eos % (Auto) 2.3 Baso % (Auto) 1.1 Neut # (Auto) 5.3 Lymph # (Auto) 0.9 [place] # (Auto) 0.5 Eos # (Auto) 0.2 Baso # (Auto) 0.1 ESR PT 12.9 H INR 1.10 APTT 29.6 Sodium 127 L Potassium 4.3 Chloride 93 L Carbon Dioxide 26 Anion Gap 12.3 BUN 14 Creatinine 1.20 Estimated Creat Clear 76 Estimated GFR 60 Est GFR ( Amer) 73 Glucose 204 H Lactate Calcium 7.9 L Total Bilirubin 3.2 H Direct Bilirubin Conjugated Bilirubin Indirect Bilirubin Unconjugated Bilirubin AST 54 ALT 21 Alkaline Phosphatase 232 H Ammonia Lactate Dehydrogenase C-Reactive Protein Total Protein 7.3 Albumin 2.8 L Globulin 4.5 H Albumin/Globul
--- NOTE | 2020-10-31 11:17 | PC.NURSE ---
PT WAS ANXIOUS TO BE DISCHARGED HOME. PT STATED HE WOULD FOLLOW UP WITH PCP AND . DRESSING WAS CHANGED TO THE UMBILICUS PRIOR TO DISCHARGE. PT WAS INSTRUCTED TO KEEP AREA CLEAN AND DRY AND TO TAKE MEDICATIONS PRESCRIBED.
== END 2020-10-31 10:55 | disposition home or self-care (01) ==
LOC: ER 20:01 → 2ND 20:22
PROVIDERS: Nurse Practitioner Family; Admitting Provider Internal Medicine Adolescent Medicine; Emergency Provider Internal Medicine; PCP Emergency Medicine; Visit Provider Emergency Medicine
DX: K42.0 Umbilical hernia with obstruction, without gangrene (principal); K70.31 Alcoholic cirrhosis of liver with ascites; Z20.822 Contact with and (suspected) exposure to COVID-19; E11.9 Type 2 diabetes mellitus without complications; Z79.84 Long term (current) use of oral hypoglycemic drugs; E55.9 Vitamin D deficiency, unspecified; J44.9 Chronic obstructive pulmonary disease, unspecified; I25.10 Atherosclerotic heart disease of native coronary artery without angina pectoris; I10 Essential (primary) hypertension; Z79.899 Other long term (current) drug therapy; F10.11 Alcohol abuse, in remission
CPT/HCPCS: G0378; 36415; 74177; 80048; 80053; 80076; 82140; 82150; 83605; 83615; 83690; 85025; 85610; 85651; 85730; 86140; 87040; 96365; 99284; J2405; Q9967; U0003

== ENCOUNTER 2020-11-30 18:44 | Emergency (ER) | payer MEDICARE, MEDICAID, SELFPAY ==
[2020-11-30 18:46] VITALS: BP 166/87; PULSE 107; RESP 22; TEMP 37.3; O2SAT 98; BMI 32.3
[2020-11-30 19:31] LABS: Basophils # 0.1 K/mm3 (0-0.2); Basophils % 2.5 % (0.1-2.0); Chloride 105 mmol/L (98-107); Eosinophils # 0.5 K/mm3 (0.0-0.4); Eosinophils % 8.8 % (0.1-12.0); Hematocrit 35.5 % (42.0-52.0); Hemoglobin 11.3 g/dL (14.1-18.0); Lymphocytes # 0.9 K/mm3 (0.7-4.5); Lymphocytes % 17.3 % (10-50); Mean Corpuscular Hemoglobin 31.1 pg (27.0-31.2); Mean Corpuscular Volume 97.2 fl (80-94); Mean Platelet Volume 6.9 fl (7.4-10.4); Monocytes # 0.6 K/mm3 (0.1-1.0); Neutrophils # 3.1 K/mm3 (1.8-7.8); Neutrophils % 60.4 % (37.0-80.0); Platelet Count 355 K/mm3 (142-424); Red Blood Count 3.65 M/mm3 (4.60-6.20); Red Cell Distribution Width 14.8 % (11.5-17.5); Sodium 136 mmol/L (136-145); White Blood Count 5.1 K/mm3 (4.8-10.8)
[2020-11-30 19:33] LABS: Blood Urea Nitrogen 12 mg/dl (9-20); Creatinine Clearance Estimated 89 mL/min (50-200); Estimated Glomerular Filt Rate 96 ml/min (>60); GFR (African American) 116 ML/MIN (>60)
[2020-11-30 19:34] LABS: Alanine Aminotransferase 22 U/L (12-78); Albumin Level 2.4 g/dl (3.5-5.0); Albumin/Globulin Ratio 0.5 (1.1-1.8); Alkaline Phosphatase 192 U/L (38-126); Aspartate Amino Transferase 49 U/L (17-59); Bilirubin,Total 2.2 mg/dl (0.2-1.3); Calcium 7.6 mg/dl (8.4-10.2); Carbon Dioxide 24 mmol/L (22.0-30.0); Globulin 4.6 g/dL (1.3-3.2); Glucose 244 mg/dl (74-100)
[2020-11-30 19:38] LABS: Prothrombin Time 13.4 seconds (10.1-12.5)
[2020-11-30 19:39] LABS: INR 1.15 (0.9-1.1)
--- NOTE | 2020-11-30 20:58 | HMH.EDNVD ---
ED Disposition Clinical Impression: Infarction of spleen Cirrhosis Qualifiers: Hepatic cirrhosis type: unspecified hepatic cirrhosis Ascites presence: with ascites Qualified Code(s): K74.60 - Unspecified cirrhosis of liver Disposition: Home, Self-Care Condition on Discharge: Good Instructions: DI for Acute Abdominal Pain Additional Instructions: see pcp for follow up Referrals: Dallin Molina MD [Primary Care Provider] - - Critical Care Critical Care Time: No Attestation: On 11/30/20, the high probability of a clinically significant, sudden or life threatening deterioration of the following system(s) required my full and direct attention, intervention and personal management. The time I documented below is in addition to time spent performing reported procedures but includes the following listed in this critical care notation. Medical Decision Making - Medical Records Medical records reviewed: Yes: I reviewed the patient's medical records. - Juan F Inquiry Pt receiving controlled substance: No Vital Signs: 11/30/20 18:46 Temperature 99.1 F Temperature Source Oral Pulse Rate [Radial] 107 H Respiratory Rate 22 Blood Pressure [Right Arm] 166/87 H Blood Pressure Mean [Right Arm] 113 Blood Pressure Position [Right Arm] Sitting 02 Sat by Pulse Oximetry 98 Oxygen Delivery Method Room Air - Lab Data Lab results reviewed: Yes: I reviewed the patient's lab results. Lab Results 11/30/20 19:15: WBC 5.1, RBC 3.65 L, Hgb 11.3 L, Hct 35.5 L, MCV 97.2 H, MCH 31.1, MCHC 32.0, RDW 14.8, Plt Count 355, MPV 6.9 L, Neut % (Auto) 60.4, Lymph % (Auto) 17.3, [place] % (Auto) 11.0 H, Eos % (Auto) 8.8, Baso % (Auto) 2.5 H, Neut # (Auto) 3.1, Lymph # (Auto) 0.9, [place] # (Auto) 0.6, Eos # (Auto) 0.5 H, Baso # (Auto) 0.1 11/30/20 19:15: PT 13.4 H, INR 1.15 H 11/30/20 19:15: Sodium 136, Potassium 4.0, Chloride 105, Carbon Dioxide 24, Anion Gap 11.0, BUN 12, Creatinine 0.80, Estimated Creat Clear 89, Estimated GFR 96, Est GFR ( Amer) 116, Glucose 244 H, Calcium 7.6 L, Total Bilirubin 2.2 H, AST 49, ALT 22, Alkaline Phosphatase 192 H, Total Protein 7.0, Albumin 2.4 L, Globulin 4.6 H, Albumin/Globulin Ratio 0.5 L 11/30/20 21:28: Ammonia < 9 L Result diagrams: 11/30/20 19:15 11/30/20 19:15 - Radiology Data #1 Image(s): Chest Image Reviewed: Yes I have reviewed radiologist's interpretation Preliminary Findings: Abnormal - CT Data CT Scan: Abdomen, Pelvis Time Received: 00:[address] Reviewed: Yes: I have viewed the radiologist's interpretation Preliminary Findings: Abnormal (see report ) Medical Decision Narrative: will need paracentesis in am - uncertain as to spleenic infarts occurred - no pain now Nausea/Vomiting/Diarrhea HPI - General Chief complaint: Abdominal Pain Stated complaint: retaining fluid Time Seen by Provider: 11/30/20 20:00 Mode of Arrival: Wheelchair Source of Information: Patient, Medical Record Limitations: No Limitations Description of Symptoms (Recalled from ER Triage Doc. by RN): TO ED PER [facility] CAR WITH C/O ABD PAIN AND SWELLING. PT STATES HE HAD FLUID TAKEN OFF HIS ABD APPROX 1 MONTH AGO PT WITH HX OF CIRRHOSIS. C/O SOB, UNABLE TO SLEEP DUE TO SOB. - History of Present Illness HPI Narrative: pt with known liver dis with ascites and presents with distended abd and dec breathing but no specific abd pain MD complaint: nausea, abdominal pain Onset (ago): day(s) Associated Abdominal Pain: Yes Location of pain: diffuse Severity: mild Consistency: intermittent Context: other (known liver dis) - Related Data Home Medications Medication Instructions Recorded Confirmed Cetirizine HCl 10 mg PO DAILY 10/13/20 10/29/20 Cyclobenzaprine HCl 10 mg PO DAILYP PRN 10/13/20 10/29/20 [Cyclobenzaprine 10mg Tab*] Duloxetine HCl [Cymbalta] 60 mg PO BID 10/13/20 10/29/20 Fluticasone/Vilanterol [Breo 1 inh INHALATION DAILY 10/13/20 10/29/20 Ellipta 100-25 Mcg INH] Furosemide [Furosem
--- NOTE | 2020-11-30 21:04 | XR_ITS ---
PROCEDURE INFORMATION: Exam: XR Chest Exam date and time: 11/30/2020 9:04 PM Age: 70 years old Clinical indication: Shortness of breath; Additional info: SOB TECHNIQUE: Imaging protocol: XR of the chest. Views: 2 views. COMPARISON: CR XR CHEST PORTABLE 10/13/2020 3:10 PM FINDINGS: Lungs: Unremarkable. No consolidation. Pleural spaces: There is a large left and moderate right pleural effusion with areas of compressive atelectasis at the lung bases. Heart/Mediastinum: Unremarkable. No cardiomegaly. Bones/joints: Unremarkable. IMPRESSION: Bilateral pleural effusions with compressive atelectasis at the lung bases. There is no evidence of alveolar consolidation or pulmonary vascular congestion.
--- NOTE | 2020-11-30 21:05 | CT_ITS ---
PROCEDURE INFORMATION: Exam: CT Abdomen And Pelvis With Contrast Exam date and time: 11/30/2020 9:05 PM Age: 70 years old Clinical indication: Abdominal tenderness and other: Swelling ascites; Prior surgery; Surgery date: 6+ months; Surgery type: Gb; Additional info: Ascites HX cirrhosis abdomen tenderness TECHNIQUE: Imaging protocol: Computed tomography of the abdomen and pelvis with contrast. Radiation optimization: All CT scans at this facility use at least one of these dose optimization techniques: automated exposure control; mA and/or kV adjustment per patient size (includes targeted exams where dose is matched to clinical indication); or iterative reconstruction. Contrast material: ISOVUE; Contrast volume: 75 ml; Contrast route: IV; COMPARISON: CT ABDOMEN PELVIS W CON 10/29/2020 5:44 PM FINDINGS: Lungs: There is a large left and moderate right pleural effusion. Bibasilar compressive atelectasis identified at the lung bases associated with this finding. There is a small hiatal hernia noted above the gastroesophageal junction. Liver: Small contracted liver with serrated margins, consistent with cirrhosis. No evidence of hepatic mass or intrahepatic biliary dilatation. Gallbladder and bile ducts: Cholecystectomy has been performed. No evidence of extrahepatic biliary dilatation. Pancreas: Normal. No ductal dilation. Spleen: There are multiple areas of peripheral non enhancement of the spleen. There is mild splenic enlargement with the long axis of the spleen measuring 14.3 cm. Primary diagnostic consideration would be peripheral splenic infarcts although neoplastic infiltration of the spleen cannot be excluded on the basis of CT alone. Adrenal glands: Normal. No mass. Kidneys and ureters: Normal. No hydronephrosis. Stomach and bowel: Unremarkable. No obstruction. No mucosal thickening. Small bowel mesentery is normal. Appendix: Unremarkable. Intraperitoneal space: Massive ascites. In addition, there is diffuse infiltration of the greater omentum. Vasculature: Atheromatous arterial calcification. No abdominal aortic aneurysm. Lymph nodes: Unremarkable. No enlarged lymph nodes. Urinary bladder: Unremarkable as visualized. Reproductive: Central prostatic calcifications identified. Bones/joints: Unremarkable. No acute fracture. Soft tissues: Large umbilical hernia identified. There is ascitic fluid which extends into the right inguinal canal. Well-circumscribed right paraspinal mass which appears intramuscular. Series number 3, image number 48. It measures 3.5 x 3.0 cm in size. This could represent an organizing hematoma or seroma within right paraspinal musculature. IMPRESSION: 1. Bilateral pleural effusions with compressive atelectasis at the lung bases. 2. Small hiatal hernia above the gastroesophageal junction. 3. Findings within the liver are compatible with cirrhosis. 4. Cholecystectomy has been performed. 5. Mild splenomegaly. There are areas of peripheral non enhancement. Primary diagnostic consideration would be multiple areas of splenic infarction which may be acute in nature. 6. Massive ascites. Diffuse infiltration of the greater omentum. Fluid extends into the right inguinal space. 7. Large umbilical hernia. 8. There is a low-attenuation mass within right paraspinal musculature which could represent an organizing hematoma or seroma.
[2020-11-30 21:45] LABS: Ammonia < 9 umol/L (9-30)
[2020-12-01 00:23] VITALS: BP 140/70; PULSE 73; RESP 16; TEMP 36.8; O2SAT 98
== END 2020-12-01 00:25 | disposition home or self-care (01) ==
PROVIDERS: Emergency Medicine; Emergency Provider Emergency Medicine; PCP Emergency Medicine
DX: D73.5 Infarction of spleen (principal); K74.60 Unspecified cirrhosis of liver; I10 Essential (primary) hypertension; E11.9 Type 2 diabetes mellitus without complications; E78.5 Hyperlipidemia, unspecified; I25.2 Old myocardial infarction; K21.9 Gastro-esophageal reflux disease without esophagitis; Z79.899 Other long term (current) drug therapy
CPT/HCPCS: 71046; 74177; 80053; 82140; 85025; 85610; 99282; Q9967

== ENCOUNTER 2020-12-01 11:02 | Outpatient (CLI) | payer MEDICARE, MEDICAID, SELFPAY ==
--- NOTE | 2020-12-01 11:13 | US_ITS ---
PROCEDURE: US PARACENTESIS CLINICAL INDICATION: R19.00 - Intra-abdominal and pelvic swelling, mass and eliane... COMPARISON: No exams were available for comparison TECHNIQUE: Informed consent was obtain prior to procedure. After appropriate Time out, under aseptic conditions and local anesthesia with 1% buffered lidocaine using sonographic guidance a 6 [place] [id number]-R-[id number] catheter was inserted into the largest pocket of fluid localized in the right lower quadrant. Approximately [id number] mL serous fluid was drained. The patient tolerated the procedure well and left the radiology suite in stable condition. FINDINGS: Diffuse ascites IMPRESSION: Successful sonographic guided paracentesis without complication. Dictated by: Skip Fonseca MD 12/02/2020 11:13 Skip Fonseca MD in [place] 12/02/2020 11:13
[2020-12-01 13:35] VITALS: BP 140/80; PULSE 92; RESP 20; TEMP 36.4; O2SAT 98
[2020-12-01 16:10] VITALS: BP 126/74; PULSE 96; RESP 18
== END 2020-12-01 16:10 | disposition home or self-care (01) ==
PROVIDERS: PCP Emergency Medicine; Visit Provider Emergency Medicine
DX: R19.00 Intra-abdominal and pelvic swelling, mass and lump, unspecified site (principal)
CPT/HCPCS: 49083; 96365; 96366

== ENCOUNTER → 2021-02-09 18:17 | Outpatient (CLI) | payer MEDICARE, MEDICAID, SELFPAY ==
[2021-02-09 21:01] LABS: Amphetamine/Metha Screen,Urine Negative ng/ml (<1000); Barbiturates Screen,Urine Negative ng/ml (<200)
[2021-02-09 21:02] LABS: Benzodiazepines Screen,Urine Negative ng/ml (<200)
[2021-02-09 21:03] LABS: Cannabinoid Screen,Urine Negative ng/ml (<50); Cocaine Screen,Urine Negative ng/ml (<300)
[2021-02-09 21:04] LABS: Methadone Screen,Urine Negative ng/ml (<300)
[2021-02-09 21:05] LABS: Opiate Screen,Urine Negative ng/ml (<300); Phencyclidine Screen,Urine Negative ng/ml (<25)
== END ==
PROVIDERS: Visit Provider Emergency Medicine
DX: M47.812 Spondylosis without myelopathy or radiculopathy, cervical region (principal); M54.9 Dorsalgia, unspecified
CPT/HCPCS: 80305

== ENCOUNTER → 2021-07-06 09:06 | Outpatient (CLI) | payer MEDICARE, MEDICAID, SELFPAY ==
[2021-07-06 20:53] LABS: Amphetamine/Metha Screen,Urine Negative ng/ml (<1000)
[2021-07-06 20:54] LABS: Barbiturates Screen,Urine Negative ng/ml (<200); Benzodiazepines Screen,Urine Negative ng/ml (<200)
[2021-07-06 20:55] LABS: Cannabinoid Screen,Urine Negative ng/ml (<50); Cocaine Screen,Urine Negative ng/ml (<300)
[2021-07-06 20:56] LABS: Methadone Screen,Urine Negative ng/ml (<300)
[2021-07-06 20:57] LABS: Opiate Screen,Urine Negative ng/ml (<300); Phencyclidine Screen,Urine Negative ng/ml (<25)
== END ==
PROVIDERS: Visit Provider Emergency Medicine
DX: M47.812 Spondylosis without myelopathy or radiculopathy, cervical region (principal)
CPT/HCPCS: 80305

== ENCOUNTER 2021-07-17 09:41 | Outpatient (CLI) | payer MEDICARE, MEDICAID, SELFPAY ==
--- NOTE | 2021-07-17 09:41 | US_ITS ---
FINAL REPORT CLINICAL HISTORY: .10,200 ml-- mary saucedo FINDINGS: Utilizing ultrasound guidance, site was selected for paracentesis. The skin was prepped and draped in the usual sterile fashion. Skin was anesthtized with 1% Lidocaine. Paracentesis was performed with a Turk[place] needle. 4 litres of fluid were obtained. The patient tolerated well without complaints. IMPRESSION: Paracentesis performed as above. Reviewed, Interpreted and Dictated by Godfrey Sanhcez MD Transcribed by MAVERICK Chen Authenticated by Godfrey Sanchez MD on 07/21/2021 07:54:57 AM [facility]
[2021-07-17 10:59] VITALS: BMI 37.5
[2021-07-17 11:27] LABS: Creatinine Clearance Estimated 104 mL/min (50-200); Estimated Glomerular Filt Rate 96 ml/min (>60); GFR (African American) 116 ML/MIN (>60)
[2021-07-17 12:00] VITALS: BP 140/75; PULSE 85; RESP 18; O2SAT 99
[2021-07-17 12:35] VITALS: BP 136/67; PULSE 81; RESP 18
[2021-07-17 13:06] VITALS: BP 145/73; PULSE 92; RESP 18
[2021-07-17 13:40] VITALS: BP 147/74; PULSE 89; RESP 18
[2021-07-17 14:20] VITALS: BP 142/70; PULSE 89; RESP 18
== END 2021-07-17 14:20 | disposition home or self-care (01) ==
LOC: RAD 09:41 → INF 11:02
PROVIDERS: PCP Emergency Medicine; Visit Provider Emergency Medicine
DX: K74.60 Unspecified cirrhosis of liver (principal); R18.8 Other ascites
CPT/HCPCS: 49083; 82565; 96365; 96366; P9047

== ENCOUNTER 2021-09-19 11:33 | Inpatient (IN) | payer MEDICARE, MEDICAID, SELFPAY ==
[2021-09-19] VITALS (31 sets, daily range): BP systolic 102–145; BP diastolic 51–85; PULSE 86–102; RESP 14–24; TEMP 36.3–36.9; O2SAT 90–100; BMI 32.1; BMI 34.8; BMI 29.9
--- NOTE | 2021-09-19 11:35 | XR_ITS ---
PROCEDURE INFORMATION: Exam: XR Chest Exam date and time: 09/19/2021 11:38 AM Age: 70 years old Clinical indication: Wheezing and other: AMS TECHNIQUE: Imaging protocol: Radiologic exam of the chest. Views: 1 view. COMPARISON: CR XR CHEST 2V 11/30/2020 10:07 PM FINDINGS: Lungs: Prominence of central pulmonary vasculature and interstitium. Menisci within the bilateral lung bases continue to increase in volume and there is contiguous atelectasis. Pleural spaces: Unremarkable. No pleural effusion. No pneumothorax. Heart/Mediastinum: Heart is upper limits normal in size. Vasculature: Calcification of thoracic aorta. Bones/joints: Acromioclavicular arthropathy. IMPRESSION: Worsening congestive heart failure and increasing pleural effusions.
--- NOTE | 2021-09-19 11:37 | CT_ITS ---
PROCEDURE INFORMATION: Exam: CT Head Without Contrast Exam date and time: 09/19/2021 12:16 PM Age: 70 years old Clinical indication: Altered mental status/memory loss; Confusion or disorientation; Additional info: AMS TECHNIQUE: Imaging protocol: Computed tomography of the head without contrast. Radiation optimization: All CT scans at this facility use at least one of these dose optimization techniques: automated exposure control; mA and/or kV adjustment per patient size (includes targeted exams where dose is matched to clinical indication); or iterative reconstruction. COMPARISON: CT HEAD/BRAIN WO CON 10/13/2020 2:55 PM FINDINGS: Brain: No acute intracranial hemorrhage, cerebral edema, or midline shift. Cerebral ventricles: No hydrocephalus. Paranasal sinuses: Mucoperiosteal thickening is present in the maxillary sinuses. Mastoid air cells: Visualized mastoid air cells are well aerated. Orbital cavities: The visualized orbits appear unremarkable. Bones/joints: No acute fracture. Soft tissues: Unremarkable. IMPRESSION: No acute intracranial abnormality.
[2021-09-19 11:41] LABS: Occult Blood,Stool Positive (Negative)
[2021-09-19 11:43] LABS: Chloride 106 mmol/L (98-107); Potassium 3.8 mmoL/L (3.5-5.1); Sodium 133 mmol/L (136-145)
[2021-09-19 11:46] LABS: Alanine Aminotransferase 16 U/L (12-78); Albumin Level 2.2 g/dl (3.5-5.0); Albumin/Globulin Ratio 0.5 (1.1-1.8); Alkaline Phosphatase 112 U/L (38-126); Anion Gap 6.8 mEq/L (5-15); Aspartate Amino Transferase 27 U/L (17-59); Bilirubin,Total 1.5 mg/dl (0.2-1.3); Blood Urea Nitrogen 17 mg/dl (9-20); Calcium 7.1 mg/dl (8.4-10.2); Carbon Dioxide 24 mmol/L (22.0-30.0); Creatinine Clearance Estimated 103 mL/min (50-200); Estimated Glomerular Filt Rate 96 ml/min (>60); GFR (African American) 116 ML/MIN (>60); Globulin 4.3 g/dL (1.3-3.2); Glucose 103 mg/dl (74-100); Total Protein,Serum 6.5 g/dl (6.3-8.2)
[2021-09-19 11:48] LABS: Basophils # 0.1 K/mm3 (0-0.2); Basophils % 1.7 % (0.1-2.0); Eosinophils # 0.3 K/mm3 (0.0-0.4); Eosinophils % 6.8 % (0.1-12.0); Lymphocytes # 0.8 K/mm3 (0.7-4.5); Lymphocytes % 17.6 % (10-50); Mean Corpuscular HGB Conc 28.7 g/dL (31.8-35.4); Mean Corpuscular Hemoglobin 20.3 pg (27.0-31.2); Mean Corpuscular Volume 70.6 fl (80-94); Mean Platelet Volume 7.7 fl (7.4-10.4); Monocytes # 0.5 K/mm3 (0.1-1.0); Monocytes % 10.8 % (1.7-9.3); Neutrophils # 2.8 K/mm3 (1.8-7.8); Platelet Count 332 K/mm3 (142-424); Red Blood Count 2.08 M/mm3 (4.60-6.20); Red Cell Distribution Width 23.5 % (11.5-17.5); White Blood Count 4.4 K/mm3 (4.8-10.8)
[2021-09-19 11:49] LABS: Hematocrit 14.7 % (42.0-52.0)
[2021-09-19 11:50] LABS: Ammonia 156 umol/L (9-30); Lactic Acid 3.3 mmol/L (0.7-2.1)
--- NOTE | 2021-09-19 11:50 | PC.NURSE ---
dr randhawa informed of critical h&h
[2021-09-19 11:51] LABS: POC Glucose,Bedside 105 (70-110)
[2021-09-19 11:51] LABS: Hemoglobin 4.2 g/dL (14.1-18.0)
--- NOTE | 2021-09-19 11:57 | ECG_ITS ---
APPROVED REPORT Exam: Resting ECG HR:95 bpm ECG Measurements Heart Rate 95 AXES OR 135 P 15 QRSd 99 QRS -1 QT 379 T 16 QTc 431 Conclusion SINUS RHYTHM Left atrial abnormality Late r wave progression ABNORMAL ECG UNCONFIRMED REPORT Electronically signed by : Lenny Gillis MD 09/21/2021 21:33:06
--- NOTE | 2021-09-19 11:57 | CT_ITS ---
PROCEDURE INFORMATION: Exam: CT Abdomen And Pelvis With Contrast Exam date and time: 09/19/2021 12:18 PM Age: 70 years old Clinical indication: Bloating; Additional info: Coffee ground emesis TECHNIQUE: Imaging protocol: Computed tomography of the abdomen and pelvis with contrast. Radiation optimization: All CT scans at this facility use at least one of these dose optimization techniques: automated exposure control; mA and/or kV adjustment per patient size (includes targeted exams where dose is matched to clinical indication); or iterative reconstruction. Contrast material: ISOVUE; Contrast volume: 75 ml; Contrast route: IV; COMPARISON: CT ABDOMEN PELVIS W CON 11/30/2020 9:55 PM FINDINGS: Pleural spaces: Large left and moderate right pleural effusions continue to increase in volume. There is contiguous atelectasis. Heart: Coronary artery calcifications. Heart is upper limits normal in size. No evidence for pericardial effusion. Mediastinal space: Paraesophageal varices. Diaphragm: Sliding hiatal hernia. Liver: Liver is diminutive in size and macrolobulated. A new hypoattenuating heterogenous nodule in the dome of the right lobe of the liver measures 19 x 18 x 16 mm and is worrisome for the development primary hepatocellular malignancy or metastatic disease. Gallbladder and bile ducts: Gallbladder is surgically absent. No worrisome dilation of the biliary tree. Pancreas: Stranding and haziness around the pancreas is likely due to 3rd spacing although pancreatitis cannot be excluded by this exam. No ductal dilation. Spleen: Large volume diffuse abdominal ascites with fluid around the liver and spleen, extending into the colic gutters and pelvis. Fluid throughout the mesentery. Volume is increased compared to the prior study. Compared to the prior examination, the spleen is diminished in size now measuring approximately 11 x 10 x 7 cm. Spleen is markedly macrolobulated. There are several areas of hypoenhancement within the spleen which probably to reflect splenic infarcts. Adrenal glands: Adrenal glands are negative for evidence of thickening or nodule. Kidneys and ureters: Kidneys are negative for evidence of solid or cystic mass, hydronephrosis or calculus disease. Stomach and bowel: Unremarkable. No obstruction. No mucosal thickening. Appendix: No evidence of appendicitis. Intraperitoneal space: There is no evidence of free air or gastrointestinal obstruction. Vasculature: There are calcifications within the aorta and its branches. Recanalization of the umbilical vein. Perisplenic varices. Lymph nodes: Unremarkable. No enlarged lymph nodes. Urinary bladder: Unremarkable as visualized. Reproductive: Unremarkable as visualized. Bones/joints: Mild degenerative spondylosis and facet arthropathy within the spine. Osteophytosis and eburnation of the sacroiliac joints and hips. Soft tissues: Abdominal ascitic fluid and extends into the right inguinal canal with increased volume compared to the prior exam. Small fat containing femoral hernias. Diffuse fluid, stranding and haziness within the subcutaneous tissues is compatible with 3rd spacing. Bilateral gynecomastia. Ascitic fluid within the umbilical hernia. Other findings: Subcentimeter calcified granulomas in the left hilum. IMPRESSION: 1. Stranding and haziness around the pancreas is likely due to 3rd spacing although pancreatitis cannot be excluded by this exam. 2. Large left and moderate right pleural effusions continue to increase in volume. There is contiguous atelectasis. 3. Advanced hepatocellular disease with cirrhotic liver, increasing severe abdominal ascites and 3rd s
--- NOTE | 2021-09-19 12:00 | HMH.EDGENADL ---
ED Disposition Clinical Impression: Upper GI bleed, Blood loss anemia, Hepatic encephalopathy, Anasarca, Liver mass Cirrhosis Qualifiers: Hepatic cirrhosis type: alcoholic cirrhosis Ascites presence: with ascites Qualified Code(s): K70.31 - Alcoholic cirrhosis of liver with ascites Disposition: Admitted As Inpatient Condition on Discharge: Critical Referrals: Dallin Molina MD [Primary Care Provider] - - Critical Care Critical Care Time: Yes Attestation: On 09/19/21, the high probability of a clinically significant, sudden or life threatening deterioration of the following system(s) required my full and direct attention, intervention and personal management. The time I documented below is in addition to time spent performing reported procedures but includes the following listed in this critical care notation. Total Critical Care Time: 45 Vital system(s) involved:: Circulatory Failure, Central Nervous System My critical care processes included: Assessment & monitoring of V/S, Initial and Re-exams, Data Review/Interpretation, Coordinating Care, Medication Orders and management, Documentation Medical Decision Making - Juan F Inquiry Pt receiving controlled substance: No Vital Signs: 09/19/21 11:16 09/19/21 11:30 09/19/21 12:00 Temperature 97.8 F Temperature Source Rectal Pulse Rate 98 H 97 H Pulse Rate [Radial] 100 H Respiratory Rate 22 18 Blood Pressure 122/79 123/77 Blood Pressure [Right Arm] 124/78 Blood Pressure Mean 96 87 Blood Pressure Mean [Right Arm] 93 Blood Pressure Position [Right Arm] Sitting 02 Sat by Pulse Oximetry 97 98 100 Oxygen Delivery Method Room Air 09/19/21 12:38 09/19/21 13:00 09/19/21 13:30 Temperature Temperature Source Pulse Rate 95 H 88 Pulse Rate [Radial] Respiratory Rate 18 18 14 Blood Pressure 118/65 119/68 121/71 Blood Pressure [Right Arm] Blood Pressure Mean 82 82 83 Blood Pressure Mean [Right Arm] Blood Pressure Position [Right Arm] 02 Sat by Pulse Oximetry 97 98 99 Oxygen Delivery Method - Lab Data Lab Results 09/19/21 11:05: WBC 4.4 L, RBC 2.08 L, Hgb 4.2 L*, Hct 14.7 L*, MCV 70.6 L, MCH 20.3 L, MCHC 28.7 L, RDW 23.5 H, Plt Count 332, MPV 7.7, Neut % (Auto) 63.0, Lymph % (Auto) 17.6, [place] % (Auto) 10.8 H, Eos % (Auto) 6.8, Baso % (Auto) 1.7, Neut # (Auto) 2.8, Lymph # (Auto) 0.8, [place] # (Auto) 0.5, Eos # (Auto) 0.3, Baso # (Auto) 0.1 09/19/21 11:05: Sodium 133 L, Potassium 3.8, Chloride 106, Carbon Dioxide 24, Anion Gap 6.8, BUN 17, Creatinine 0.80, Estimated Creat Clear 103, Estimated GFR 96, Est GFR ( Amer) 116, Glucose 103 H, Calcium 7.1 L, Total Bilirubin 1.5 H, AST 27, ALT 16, Alkaline Phosphatase 112, Total Protein 6.5, Albumin 2.2 L, Globulin 4.3 H, Albumin/Globulin Ratio 0.5 L 09/19/21 11:05: Lactate 3.3 H 09/19/21 11:05: Ammonia 156 H 09/19/21 11:05: Stool Occult Blood Positive A 09/19/21 11:05: PT 15.2 H, INR 1.38 H 09/19/21 11:39: VBG pH 7.48 H, VBG pCO2 28.1 L, VBG pO2 162.8 H, VBG HCO3 20.6 L, VBG Total CO2 21.4 L, VBG O2 Saturation 99.5 H, VBG Base Excess -2.9 L 09/19/21 11:43: POC Glucose 105 09/19/21 12:09: Blood Type O Positive, Antibody Screen Negative, Crossmatch (AHG) See Detail 09/19/21 12:09: Blood Type Confirm O Positive 09/19/21 13:37: SARS-CoV-2 (PCR) Not detected, Influenza A Untype (PCR) Not detected, Influenza Type B (PCR) Not detected Result diagrams: 09/19/21 11:05 09/19/21 11:05 Orders (Tests/Meds): ED MEDICATIONS Generic Name Dose Route Start Last Admin Trade Name Freq PRN Reason Stop Dose Admin Sodium Chloride 250 mls @ 25 mls/hr 09/19/21 12:00 09/19/21 14:00 Sod Chlor 0.9% 250ml Bag IV 09/20/21 11:59 25 mls/hr .Q10H ASIA Administration Pantoprazole Sodium 80 mg/ 100 mls @ 10 mls/hr 09/19/21 13:00 09/19/21 13:38 Sodium Chloride IV 09/22/21 12:59 10 mls/hr .Q10H ASIA Administration Ceftriaxone Sodium 1 gm/ 50 mls @ 100 mls/hr 09/19/21 12:00 09/19/21 1
--- NOTE | 2021-09-19 12:01 | PC.NURSE ---
Lab an SO at bedside
[2021-09-19 12:24] LABS: VBG Base Excess -2.9 mmol/L (-2.4-2.3); VBG HCO3 20.6 mmol/L (23-30); VBG Oxygen Saturation 99.5 % (50-70); VBG PCO2 28.1 mmol/L (35-51); VBG PH 7.48 mmol/L (7.31-7.41); VBG PO2 162.8 mmol/L (28-40); VBG Total CO2 21.4 mmol/L (23-27)
--- NOTE | 2021-09-19 12:30 | PC.NURSE ---
pt responds to painful stimuli
[2021-09-19 12:44] LABS: INR 1.38 (0.9-1.1); Prothrombin Time 15.2 seconds (10.1-12.5)
--- NOTE | 2021-09-19 13:00 | PC.NURSE ---
iv # 20 placed rt hand
[2021-09-19 13:08] LABS: Reflex Lactic Add Lactic Reflex
--- NOTE | 2021-09-19 13:11 | PC.NURSE ---
iv #20 placed lt hand
--- NOTE | 2021-09-19 13:21 | PC.NURSE ---
lab called to notify blood units are ready
--- NOTE | 2021-09-19 13:30 | PC.NURSE ---
no change in pt's mental status
[2021-09-19 13:43] LABS: Coronavirus 19, PCR Not Detected (NotDetected); Influenza A, PCR Not Detected (NotDetected); Influenza B, PCR Not Detected (NotDetected)
--- NOTE | 2021-09-19 13:51 | PC.NURSE ---
obtained blood from lab
--- NOTE | 2021-09-19 14:03 | PC.NURSE ---
rn in room about to start blood products
--- NOTE | 2021-09-19 14:11 | HMH.PHAINT ---
MEDICATION RECONCILIATION COMPLETED ON PATIENT USING EXTERNAL FILL HISTORY FROM PHARMACY AND CALL TO CLINIC PHARMACY. -CHON SANABRIAD
--- NOTE | 2021-09-19 14:30 | PC.NURSE ---
pt incontinent of urine linens changed
--- NOTE | 2021-09-19 14:34 | PC.NURSE ---
attempted to call report
[2021-09-19 14:43] LABS: Lipase 46 U/L (23-300)
--- NOTE | 2021-09-19 14:55 | HMH.PHAVTE ---
[facility] Pharmacy VTE Monitoring - Patient Demographics Admission date: 09/19/21 Report Date: 09/19/21 Time: 14:55 Allergies/Adverse Reactions: Patient Allergies aspirin Allergy (Severe, Verified 07/20/21 14:53) Anaphylaxis Height: 1.8 m Weight: 113.398 kg Patient Problems: Current Active Problems (This Medical Record has been edited. Action required.) Upper GI bleed (Acute) Blood loss anemia (Acute) Hepatic encephalopathy (Acute) Anasarca (Acute) Liver mass (Acute) Cirrhosis (Acute) - VTE Risk Labs: VTE Related Lab Results Hgb 4.2 g/dL (14.1-18.0) L* 09/19/21 11:05 Hct 14.7 % (42.0-52.0) L* 09/19/21 11:05 Plt Count 332 K/mm3 (142-424) 09/19/21 11:05 PT 15.2 seconds (10.1-12.5) H 09/19/21 11:05 INR 1.38 (0.9-1.1) H 09/19/21 11:05 BUN 17 mg/dl (9-20) 09/19/21 11:05 Creatinine 0.80 mg/dl (0.66-1.25) 09/19/21 11:05 Estimated Creat Clear 103 mL/min (50-200) 09/19/21 11:05 - Prophylaxis VTE Prophylaxis Ordered?: Yes Types of VTE Prophylaxis: TEDS Knee High Location of Applied Device: Bilateral Lower Extremeties
--- NOTE | 2021-09-19 14:56 | PC.NURSE ---
report called to floor
[2021-09-19 15:13] LABS: Microscopic, Urine URINE MICROSCOPIC (MICROSCOPIC)
--- NOTE | 2021-09-19 15:13 | PC.NURSE ---
blood infusing pt larry well
[2021-09-19 15:23] LABS: Appearance,Urine CLEAR (Clear); Bilirubin,Urine Negative (Negative); Blood, Urine TRACE-I (Negative); Color,Urine YELLOW (Yellow); Glucose,Urine (UA) Negative (Negative); Ketones,Urine Negative (Negative); Leukocyte Esterase,Urine Negative (Negative); Nitrate,Urine Negative (Negative); Protein,Urine Negative (Negative)
--- NOTE | 2021-09-19 15:25 | PC.NURSE ---
Pt arrived at this time
[2021-09-19 15:34] LABS: RBC,Urine Occasional #/hpf (0-3); Squamous Epithelial Cell,Urine Occasional #/hpf (0-5); WBC,Urine Occasional #/hpf (0-3)
--- NOTE | 2021-09-19 15:51 | PC.NURSE ---
Admission completed to the best of my ability, pt presents w/ams and unable to answer my questions
[2021-09-19 15:57] LABS: Lactic Acid Follow Up (RFLX 1) 3.3 mmol/L (0.7-2.1)
--- NOTE | 2021-09-19 16:21 | PC.NURSE ---
Called brother Braulio Martel to discuss pt being DNR. Pt is unable to make decision on his own. Verified verbal with Xiomara MORENO over phone.
--- NOTE | 2021-09-19 16:23 | PC.NURSE ---
Called Dr. Gillis waiting for call back.
[2021-09-19 17:46] LABS: Reflex Lactic (2 hrs) Add Lactic Reflex
[2021-09-19 18:52] LABS: Lactic Acid Follow up (RFLX 2) 2.5 mmol/L (0.7-2.1)
--- NOTE | 2021-09-19 21:08 | HMH.PHAINT ---
pharmacy called to verify vancomycin dosing, spoke to anahy with [facility]; stated she will fix the dosing
[2021-09-19 23:01] LABS: Hematocrit 15.7 % (42.0-52.0); Hemoglobin 4.7 g/dL (14.1-18.0)
[2021-09-20] VITALS (25 sets, daily range): BP systolic 123–170; BP diastolic 64–93; PULSE 97–104; RESP 18–20; TEMP 36.6–37.2; O2SAT 94–100; BMI 30.1
[2021-09-20 00:47] LABS: POC Glucose,Bedside 111 (70-110)
--- NOTE | 2021-09-20 04:30 | PC.NURSE ---
pt received 2 units of PRBC's with a resulting HCT/HGB of 4.7/15.7 which was called to dr. dotson with returned verbal orders to transfuse two more units already on hold, vital signs have been stable, pt confused and non verbal, pt responds only to painful stimuli or when attempting to move pt in bed, pt given ativan for agitation; pt has been attempting to pull at iv's and catheters and confused, pt will not respond to name calling, only to stimuli, pt with 3+ pitting edema to BLE; VS remain stable, F/C to bsd with orange tinged urine noted, pt skin with scattered bruising and pallor to a jaundice color. pt has slept most of the night
--- NOTE | 2021-09-20 08:03 | HMH.PHACONS ---
- Pharmacy Consult Date: 09/20/21 Time: 08:03 Referring provider: DR. BLANCO Reason for Consult:: VANCOMYCIN DOSING Allergies and ADEs:: Allergies Allergy/AdvReac Type Severity Reaction Status Date / Time aspirin Allergy Severe Anaphylaxis Verified 07/20/21 14:53 Home Medications:: Home Medications Medication Instructions Recorded Confirmed Type Furosemide [Furosemide 20mg Tab*] 20 mg PO DAILY 10/13/20 09/19/21 History albuterol sulfate 90 mcg/actuation 1 inh IH QIDP PRN 07/20/21 09/19/21 History aerosol inhaler gabapentin 600 mg tablet 600 mg PO TID #90 tab 07/20/21 09/19/21 Rx Cetirizine HCl 10 mg PO DAILY 09/19/21 09/19/21 History Cyclobenzaprine HCl [Flexeril 10mg 10 mg PO DAILYP PRN 09/19/21 09/19/21 History tablet] Duloxetine HCl [Cymbalta] 60 mg PO BID 09/19/21 09/19/21 History Hydrocod/Acet 5/325 mg [[place] 1 tab PO DAILY 09/19/21 09/19/21 History 5/325mg tablet] Lactulose [Lactulose 20gm/30ml 20 g PO BID 09/19/21 09/19/21 History Oral Soln] Omeprazole 40 mg PO DAILY 09/19/21 09/19/21 History Spironolactone 100 mg PO DAILY 09/19/21 09/19/21 History Trazodone HCl 50 mg PO HS 09/19/21 09/19/21 History glipiZIDE [Glipizide] 10 mg PO BID 09/19/21 09/19/21 History lisinopriL [Lisinopril] 2.5 mg PO DAILY 09/19/21 09/19/21 History Height: 1.85 m Weight: 103.079 kg Laboratory Results:: Laboratory Results - last 24 hr 09/19/21 11:05: WBC 4.4 L, RBC 2.08 L, Hgb 4.2 L*, Hct 14.7 L*, MCV 70.6 L, MCH 20.3 L, MCHC 28.7 L, RDW 23.5 H, Plt Count 332, MPV 7.7, Neut % (Auto) 63.0, Lymph % (Auto) 17.6, [place] % (Auto) 10.8 H, Eos % (Auto) 6.8, Baso % (Auto) 1.7, Neut # (Auto) 2.8, Lymph # (Auto) 0.8, [place] # (Auto) 0.5, Eos # (Auto) 0.3, Baso # (Auto) 0.1 09/19/21 11:05: Sodium 133 L, Potassium 3.8, Chloride 106, Carbon Dioxide 24, Anion Gap 6.8, BUN 17, Creatinine 0.80, Estimated Creat Clear 103, Estimated GFR 96, Est GFR ( Amer) 116, Glucose 103 H, Calcium 7.1 L, Total Bilirubin 1.5 H, AST 27, ALT 16, Alkaline Phosphatase 112, Total Protein 6.5, Albumin 2.2 L, Globulin 4.3 H, Albumin/Globulin Ratio 0.5 L 09/19/21 11:05: Lactate 3.3 H 09/19/21 11:05: Ammonia 156 H 09/19/21 11:05: Stool Occult Blood Positive A 09/19/21 11:05: PT 15.2 H, INR 1.38 H 09/19/21 11:25: Lipase 46 09/19/21 11:39: VBG pH 7.48 H, VBG pCO2 28.1 L, VBG pO2 162.8 H, VBG HCO3 20.6 L, VBG Total CO2 21.4 L, VBG O2 Saturation 99.5 H, VBG Base Excess -2.9 L 09/19/21 11:43: POC Glucose 105 09/19/21 12:09: Blood Type O Positive, Antibody Screen Negative, Crossmatch (AHG) See Detail 09/19/21 12:09: Blood Type Confirm O Positive 09/19/21 13:37: SARS-CoV-2 (PCR) Not detected, Influenza A Untype (PCR) Not detected, Influenza Type B (PCR) Not detected 09/19/21 14:54: Urine Color Yellow, Urine Appearance Clear, Urine pH 7.0, Ur Specific [place] 1.010, Urine Protein Negative, Urine Glucose (UA) Negative, Urine Ketones Negative, Urine Blood Trace-i, Urine Nitrate Negative, Urine Bilirubin Negative, Urine Urobilinogen 2.0, Ur Leukocyte Esterase Negative, Urine RBC Occasional, Urine WBC Occasional, Ur Squamous Epith Cells Occasional 09/19/21 15:40: Lactate 3.3 H 09/19/21 18:15: Lactate 2.5 H 09/19/21 21:00: POC Glucose 111 H 09/19/21 22:45: Hgb 4.7 L*, Hct 15.7 L* Medical History: Reports:: Cancer, Chronic Obstructive Pulmonary Disease (COPD), Coronary Artery Disease, Diabetes Mellitus Type 2, Gastroesophageal Reflux Disease(GERD), Hyperlipidemia, Hypertension, Myocardial Infarction Denies:: Diabetes Mellitus Type 1 Assessment and Plan - Assessment and plan all Dx Assessment and Plan for all problems:: Pharmacokinetic dosing service Objective: Patient: Floor: Age: 70 yo Serum creatinine: 0.80 mg/dL Height: 72.8 Inches Weight (kg): 103 Assessment: IBW (kg): 79.44 Dosing wt(kg): 103 Estimated Creatinine clearance (ml/min): 97.9
[2021-09-20 08:30] LABS: Basophils # 0.1 K/mm3 (0-0.2); Basophils % 1.4 % (0.1-2.0); Hematocrit 22.8 % (42.0-52.0); Lymphocytes # 0.9 K/mm3 (0.7-4.5); Mean Corpuscular Hemoglobin 24.8 pg (27.0-31.2); Monocytes # 0.6 K/mm3 (0.1-1.0); White Blood Count 6.4 K/mm3 (4.8-10.8)
[2021-09-20 08:42] LABS: Ammonia 167 umol/L (9-30)
[2021-09-20 09:05] LABS: Eosinophils # 0.4 K/mm3 (0.0-0.4); Eosinophils % 6.8 % (0.1-12.0); Lymphocytes % 13.8 % (10-50); Mean Corpuscular HGB Conc 31.3 g/dL (31.8-35.4); Mean Corpuscular Volume 79.2 fl (80-94); Monocytes % 9.7 % (1.7-9.3); Neutrophils # 4.4 K/mm3 (1.8-7.8); Neutrophils % 68.4 % (37.0-80.0); Platelet Count 267 K/mm3 (142-424); Red Blood Count 2.88 M/mm3 (4.60-6.20); Red Cell Distribution Width 22.9 % (11.5-17.5)
[2021-09-20 09:06] LABS: Hemoglobin 7.2 g/dL (14.1-18.0)
[2021-09-20 09:27] LABS: Anion Gap 10.1 mEq/L (5-15); Blood Urea Nitrogen 21 mg/dl (9-20); Calcium 6.9 mg/dl (8.4-10.2); Carbon Dioxide 22 mmol/L (22.0-30.0); Chloride 107 mmol/L (98-107); Creatinine Clearance Estimated 102 mL/min (50-200); Estimated Glomerular Filt Rate 96 ml/min (>60); GFR (African American) 116 ML/MIN (>60); Glucose 109 mg/dl (74-100); Potassium 4.1 mmoL/L (3.5-5.1); Sodium 135 mmol/L (136-145)
--- NOTE | 2021-09-20 10:52 | HMH.HP ---
*Admission Date: 09/19/21 *Chief complaint: weakness *History of present illness: pt presented to the ed -patient brought in by ambulance for reported coffee-ground emesis and altered mental status. Reportedly combative at the scene and was given intramuscular Versed by EMS personnel. Patient at this time is somnolent and unable to give any additional history. He has known history of alcoholic cirrhosis with ascites per previous records.pt has known liver dis with ascites and has sig blood loss anemia and will be admitted at this time with hepatic formerly [facility] History I have reviewed the patient's past medical history: Yes Medical History: Reports:: Cancer, Chronic Obstructive Pulmonary Disease (COPD), Coronary Artery Disease, Diabetes Mellitus Type 2, Gastroesophageal Reflux Disease(GERD), Hyperlipidemia, Hypertension, Myocardial Infarction Denies:: Diabetes Mellitus Type 1 *Have you ever received a pneumonia vaccine?: Yes *Have you received a flu vaccine this season?: Yes Other Medical History: Reports: Anemia Other Surgeries: Yes: No Previous Surgery, Cholecystectomy, Colonoscopy, Other Amputation: No Fractures: No - *Social History Last grade of school completed: 4th or less Smoking Status: Former smoker Alcohol Intake: former Alcohol Intake Frequency:: other Substance Use Type: denies use *Occupational Status:: retired Housing: house Household Members: significant other *Travel in the last 8 weeks: None Family Hx:: Diabetes, Heart Attack Review of Systems - Review of Systems Review of systems:: unable to obtain Meds Home Medications Medication Instructions Recorded Confirmed Type Furosemide [Furosemide 20mg Tab*] 20 mg PO DAILY 10/13/20 09/19/21 History albuterol sulfate 90 mcg/actuation 1 inh IH QIDP PRN 07/20/21 09/19/21 History aerosol inhaler gabapentin 600 mg tablet 600 mg PO TID #90 tab 07/20/21 09/19/21 Rx Cetirizine HCl 10 mg PO DAILY 09/19/21 09/19/21 History Cyclobenzaprine HCl [Flexeril 10mg 10 mg PO DAILYP PRN 09/19/21 09/19/21 History tablet] Duloxetine HCl [Cymbalta] 60 mg PO BID 09/19/21 09/19/21 History Hydrocod/Acet 5/325 mg [[place] 1 tab PO DAILY 09/19/21 09/19/21 History 5/325mg tablet] Lactulose [Lactulose 20gm/30ml 20 g PO BID 09/19/21 09/19/21 History Oral Soln] Omeprazole 40 mg PO DAILY 09/19/21 09/19/21 History Spironolactone 100 mg PO DAILY 09/19/21 09/19/21 History Trazodone HCl 50 mg PO HS 09/19/21 09/19/21 History glipiZIDE [Glipizide] 10 mg PO BID 09/19/21 09/19/21 History lisinopriL [Lisinopril] 2.5 mg PO DAILY 09/19/21 09/19/21 History Allergies Allergy/AdvReac Type Severity Reaction Status Date / Time aspirin Allergy Severe Anaphylaxis Verified 07/20/21 14:53 Exam Vital signs and Labs for Last 24 Hours: Temp Pulse Resp BP Pulse Ox 99.0 F 102 H 18 170/85 H 99 09/20/21 09:04 09/20/21 09:04 09/20/21 09:04 09/20/21 09:04 09/20/21 09:04 Laboratory Results - last 24 hr 09/19/21 11:05: WBC 4.4 L, RBC 2.08 L, Hgb 4.2 L*, Hct 14.7 L*, MCV 70.6 L, MCH 20.3 L, MCHC 28.7 L, RDW 23.5 H, Plt Count 332, MPV 7.7, Neut % (Auto) 63.0, Lymph % (Auto) 17.6, [place] % (Auto) 10.8 H, Eos % (Auto) 6.8, Baso % (Auto) 1.7, Neut # (Auto) 2.8, Lymph # (Auto) 0.8, [place] # (Auto) 0.5, Eos # (Auto) 0.3, Baso # (Auto) 0.1 09/19/21 11:05: Sodium 133 L, Potassium 3.8, Chloride 106, Carbon Dioxide 24, Anion Gap 6.8, BUN 17, Creatinine 0.80, Estimated Creat Clear 103, Estimated GFR 96, Est GFR ( Amer) 116, Glucose 103 H, Calcium 7.1 L, Total Bilirubin 1.5 H, AST 27, ALT 16, Alkaline Phosphatase 112, Total Protein 6.5, Albumin 2.2 L, Globulin 4.3 H, Albumin/Globulin Ratio 0.5 L 09/19/21 11:05: Lactate 3.3 H 09/19/21 11:05: Ammonia 156 H 09/19/21 11:05: Stool Occult Blood Positive A 09/19/21 11:05: PT 15.2 H, INR 1.38 H 09/19/21 11:25: Lipase 46 09/19/21 11:39: VBG pH 7.48 H, VBG pCO2 28.1 L, VBG pO2 162.8 H, VBG HCO3 20.6 L, VBG Total CO2 21.4 L, VBG O2 Saturation 99.5 H, VBG
[2021-09-20 11:56] LABS: Hematocrit 24.9 % (42.0-52.0); Hemoglobin 7.5 g/dL (14.1-18.0)
[2021-09-20 14:25] LABS: POC Glucose,Bedside 109 (70-110)
[2021-09-20 17:35] LABS: POC Glucose,Bedside 112 (70-110)
--- NOTE | 2021-09-20 19:55 | PC.NURSE ---
Pt had uneventful day during shift. No change since last assessment. Pt has not had any sedation medication. As the day has progressed as we turned him, did oral care, and anything else that involved moving him he started to moan and be slightly resistive. He seem to be starting to wake up a little more then yesterday.
[2021-09-21 04:00] VITALS: BP 159/82; PULSE 98; RESP 20; TEMP 36.9; O2SAT 94
--- NOTE | 2021-09-21 04:29 | PC.NURSE ---
pt unresponsive to name calling but will moan when moving patient in bed, pt has been moaning out on occasion through the night, rodrigues to bsd with clear orange tinged urine noted, bilateral pitting edema noted, VSS, lung sounds clear and diminished, oral care provided, skin intact, pt pale in color with some mile jaundice color noted, pt with minimal bowel movements after lactulose per rectal administration as directed, no other issues noted.
[2021-09-21 05:00] VITALS: BMI 30.7
[2021-09-21 06:38] LABS: POC Glucose,Bedside 112 (70-110)
[2021-09-21 08:00] VITALS: BP 136/66; PULSE 92; RESP 22; TEMP 36.3; O2SAT 93
--- NOTE | 2021-09-21 09:10 | HMH.ACPN2 ---
Internal Medicine - PN: Subj *Date: 09/22/21 *Time: 06:32 Interval history: still obtunded no active bleeding Exam Vital signs and Labs for Last 24 Hours: Temp Pulse Resp BP Pulse Ox 98.4 F 98 H 20 159/82 H 94 L 09/21/21 04:00 09/21/21 04:00 09/21/21 04:00 09/21/21 04:00 09/21/21 04:00 Laboratory Results - last 24 hr 09/19/21 12:09: Crossmatch (AHG) See Detail 09/20/21 08:19: Sodium 135 L, Potassium 4.1, Chloride 107, Carbon Dioxide 22, Anion Gap 10.1, BUN 21 H, Creatinine 0.80, Estimated Creat Clear 102, Estimated GFR 96, Est GFR ( Amer) 116, Glucose 109 H, Calcium 6.9 L 09/20/21 11:21: Hgb 7.5 L, Hct 24.9 L 09/20/21 11:34: POC Glucose 109 09/20/21 17:06: POC Glucose 112 H 09/21/21 06:16: POC Glucose 112 H I & O for Last 24 hours: Intake & Output 09/18/21 09/19/21 09/20/21 09/21/21 11:59 11:59 11:59 11:59 Intake Total 2224 / 2224 2581 / 2581 Output Total 1150 / 1150 300 / 300 Balance 1074 / 1074 2281 / 2281 Weight 250 lb 227 lb 4.005 oz 231 lb 11.2 oz - Constitutional obtunded - *Routine HEENT Exam Head: Present: normocephalic Eye: Present: EOMI, PERRL. Absent: conjunctival icterus ENT: Present: mucous membranes dry - *Routine Neck Exam Absent: JVD - *Routine Respiratory Exam Present: decreased breath sounds - *Routine Cardiovascular Exam Present: RRR - *Routine Abdominal Exam Present: distended Comments: has ascites - *Routine Extremities Exam Present: edema - *Routine Skin Exam Absent: rash - *Routine Neurological Exam Present: altered mental status - Routine Psychiatric Exam Present: unable to assess Assessment and Plan (1) Gynecomastia Status: Acute Category: Medical Code(s): N62 - Hypertrophy of breast (2) Anasarca Status: Acute Category: Medical Code(s): R60.1 - Generalized edema (3) Blood loss anemia Status: Acute Category: Medical Code(s): D50.0 - Iron deficiency anemia secondary to blood loss (chronic) (4) Cirrhosis Status: Acute Qualifiers: Hepatic cirrhosis type: alcoholic cirrhosis Ascites presence: with ascites Qualified Code(s): K70.31 - Alcoholic cirrhosis of liver with ascites Category: Medical Code(s): K74.60 - Unspecified cirrhosis of liver (5) Hepatic encephalopathy Status: Acute Category: Medical Code(s): K72.90 - Hepatic failure, unspecified without coma (6) Liver mass Status: Acute Category: Medical Code(s): R16.0 - Hepatomegaly, not elsewhere classified (7) Upper GI bleed Status: Acute Category: Medical Code(s): K92.2 - Gastrointestinal hemorrhage, unspecified (8) Ascites Status: Acute Qualifiers: Ascites type: due to alcoholic cirrhosis Qualified Code(s): K70.31 - Alcoholic cirrhosis of liver with ascites Category: Medical Code(s): R18.8 - Other ascites (9) COPD (chronic obstructive pulmonary disease) Status: Acute Qualifiers: COPD type: unspecified COPD Qualified Code(s): J44.9 - Chronic obstructive pulmonary disease, unspecified Category: Medical Code(s): J44.9 - Chronic obstructive pulmonary disease, unspecified (10) Pleural effusion associated with hepatic disorder Status: Acute Category: Medical Code(s): K76.9 - Liver disease, unspecified; J91.8 - Pleural effusion in other conditions classified elsewhere (11) Esophageal varices Status: Acute Qualifiers: Esophageal varices bleeding: with bleeding Category: Medical Code(s): I85.00 - Esophageal varices without bleeding
[2021-09-21 10:18] LABS: Basophils # 0.1 K/mm3 (0-0.2); Basophils % 1.1 % (0.1-2.0); Eosinophils # 0.5 K/mm3 (0.0-0.4); Eosinophils % 7.4 % (0.1-12.0); Hematocrit 22.6 % (42.0-52.0); Lymphocytes # 0.8 K/mm3 (0.7-4.5); Lymphocytes % 11.6 % (10-50); Mean Corpuscular HGB Conc 31.1 g/dL (31.8-35.4); Mean Corpuscular Hemoglobin 24.2 pg (27.0-31.2); Mean Corpuscular Volume 77.8 fl (80-94); Mean Platelet Volume 7.9 fl (7.4-10.4); Monocytes # 0.5 K/mm3 (0.1-1.0); Neutrophils # 4.7 K/mm3 (1.8-7.8); Neutrophils % 71.9 % (37.0-80.0); Platelet Count 302 K/mm3 (142-424); Red Cell Distribution Width 23.5 % (11.5-17.5); White Blood Count 6.6 K/mm3 (4.8-10.8)
[2021-09-21 10:31] LABS: Anion Gap 7.9 mEq/L (5-15); Blood Urea Nitrogen 24 mg/dl (9-20); Calcium 6.9 mg/dl (8.4-10.2); Carbon Dioxide 22 mmol/L (22.0-30.0); Chloride 110 mmol/L (98-107); Creatinine Clearance Estimated 104 mL/min (50-200); Estimated Glomerular Filt Rate 96 ml/min (>60); GFR (African American) 116 ML/MIN (>60); Glucose 125 mg/dl (74-100); Potassium 3.9 mmoL/L (3.5-5.1); Sodium 136 mmol/L (136-145)
[2021-09-21 10:38] LABS: Vancomycin,Trough 20.1 ug/mL (5.0-10.0)
[2021-09-21 10:49] LABS: Ammonia 92 umol/L (9-30)
--- NOTE | 2021-09-21 10:49 | HMH.PHACONS ---
- Pharmacy Consult Date: 09/21/21 Time: 10:50 Referring provider: DR. DONG Reason for Consult:: VANCOMYCIN LEVEL Allergies and ADEs:: Allergies Allergy/AdvReac Type Severity Reaction Status Date / Time aspirin Allergy Severe Anaphylaxis Verified 07/20/21 14:53 Home Medications:: Home Medications Medication Instructions Recorded Confirmed Type Furosemide [Furosemide 20mg Tab*] 20 mg PO DAILY 10/13/20 09/19/21 History albuterol sulfate 90 mcg/actuation 1 inh IH QIDP PRN 07/20/21 09/19/21 History aerosol inhaler gabapentin 600 mg tablet 600 mg PO TID #90 tab 07/20/21 09/19/21 Rx Cetirizine HCl 10 mg PO DAILY 09/19/21 09/19/21 History Cyclobenzaprine HCl [Flexeril 10mg 10 mg PO DAILYP PRN 09/19/21 09/19/21 History tablet] Duloxetine HCl [Cymbalta] 60 mg PO BID 09/19/21 09/19/21 History Hydrocod/Acet 5/325 mg [[place] 1 tab PO DAILY 09/19/21 09/19/21 History 5/325mg tablet] Lactulose [Lactulose 20gm/30ml 20 g PO BID 09/19/21 09/19/21 History Oral Soln] Omeprazole 40 mg PO DAILY 09/19/21 09/19/21 History Spironolactone 100 mg PO DAILY 09/19/21 09/19/21 History Trazodone HCl 50 mg PO HS 09/19/21 09/19/21 History glipiZIDE [Glipizide] 10 mg PO BID 09/19/21 09/19/21 History lisinopriL [Lisinopril] 2.5 mg PO DAILY 09/19/21 09/19/21 History Height: 1.85 m Weight: 105.097 kg Laboratory Results:: Laboratory Results - last 24 hr 09/20/21 11:21: Hgb 7.5 L, Hct 24.9 L 09/20/21 11:34: POC Glucose 109 09/20/21 17:06: POC Glucose 112 H 09/21/21 06:16: POC Glucose 112 H 09/21/21 10:05: Vancomycin Trough 20.1 H 09/21/21 10:05: WBC 6.6, RBC 2.90 L, Hgb 7.0 L, Hct 22.6 L, MCV 77.8 L, MCH 24.2 L, MCHC 31.1 L, RDW 23.5 H, Plt Count 302, MPV 7.9, Neut % (Auto) 71.9, Lymph % (Auto) 11.6, [place] % (Auto) 8.0, Eos % (Auto) 7.4, Baso % (Auto) 1.1, Neut # (Auto) 4.7, Lymph # (Auto) 0.8, [place] # (Auto) 0.5, Eos # (Auto) 0.5 H, Baso # (Auto) 0.1 09/21/21 10:05: Sodium 136, Potassium 3.9, Chloride 110 H, Carbon Dioxide 22, Anion Gap 7.9, BUN 24 H, Creatinine 0.80, Estimated Creat Clear 104, Estimated GFR 96, Est GFR ( Amer) 116, Glucose 125 H, Calcium 6.9 L 09/21/21 10:05: Ammonia 92 H Medical History: Reports:: Cancer, Chronic Obstructive Pulmonary Disease (COPD), Coronary Artery Disease, Diabetes Mellitus Type 2, Gastroesophageal Reflux Disease(GERD), Hyperlipidemia, Hypertension, Myocardial Infarction Denies:: Diabetes Mellitus Type 1 Assessment and Plan (1) Gynecomastia Status: Acute Category: Medical Code(s): N62 - Hypertrophy of breast (2) Anasarca Status: Acute Category: Medical Code(s): R60.1 - Generalized edema (3) Blood loss anemia Status: Acute Category: Medical Code(s): D50.0 - Iron deficiency anemia secondary to blood loss (chronic) (4) Cirrhosis Status: Acute Qualifiers: Hepatic cirrhosis type: alcoholic cirrhosis Ascites presence: with ascites Qualified Code(s): K70.31 - Alcoholic cirrhosis of liver with ascites Category: Medical Code(s): K74.60 - Unspecified cirrhosis of liver (5) Hepatic encephalopathy Status: Acute Category: Medical Code(s): K72.90 - Hepatic failure, unspecified without coma (6) Liver mass Status: Acute Category: Medical Code(s): R16.0 - Hepatomegaly, not elsewhere classified (7) Upper GI bleed Status: Acute Category: Medical Code(s): K92.2 - Gastrointestinal hemorrhage, unspecified (8) Ascites Status: Acute Qualifiers: Ascites type: due to alcoholic cirrhosis Qualified Code(s): K70.31 - Alcoholic cirrhosis of liver with ascites Category: Medical Code(s): R18.8 - Other ascites (9) COPD (chronic obstructive pulmonary disease) Status: Acute Qualifiers: COPD type: unspecified COPD Qualified Code(s): J44.9 - Chronic obstructive pulmonary disease, unspecified Category: Medical Code(s): J44.9 - Chronic obstructive pulmonary disease, unspecified (10) Pleural effusion associated with hepat
[2021-09-21 11:31] LABS: POC Glucose,Bedside 126 (70-110)
[2021-09-21 12:00] VITALS: BP 150/74; PULSE 91; RESP 22; TEMP 36.4; O2SAT 95
--- NOTE | 2021-09-21 13:30 | PC.NURSE ---
PT IS RESTING IN BED. PT HAS BEEN OBTUNDED T/O THE SHIFT. PT WILL OPEN EYES AND MOAN WHEN TURNING AND REPOSITIONING. ORAL CARE PROVIDED. LACTULOSE GIVEN RECTALLY. PT IS UNABLE TO TAKE PO MEDICATIONS. LUNG SOUNDS DIMINISHED. ABDOMEN DISTENDED. 3+ PITTING EDEMA NOTED TO BLE. WILL CONTINUE TO MONITOR.
[2021-09-21 15:03] VITALS: BMI 30.3
[2021-09-21 16:00] VITALS: BP 162/84; PULSE 98; RESP 22; TEMP 36.4; O2SAT 92
[2021-09-21 16:10] LABS: POC Glucose,Bedside 131 (70-110)
[2021-09-21 20:00] VITALS: BP 138/72; PULSE 93; RESP 18; TEMP 36.6; O2SAT 92
[2021-09-21 21:57] LABS: POC Glucose,Bedside 146 (70-110)
[2021-09-22 04:00] VITALS: BP 160/78; PULSE 82; RESP 18; TEMP 36.7; O2SAT 97
[2021-09-22 05:00] VITALS: BMI 29.9
--- NOTE | 2021-09-22 05:16 | PC.NURSE ---
T/O the shift pt has been turned and repositioned every 2 hours. Heals are floated off mattress with pillows. Pt has moaned and grunted when being turned and repositioned. He has become more alert t/o the shift, he is now moving in bed, putting legs over side of bed. While bathing him, he did grab our hands. He has +3 pitting edema in the left leg and +2 pitting edema in the right leg. He has +1 edema in left hand. Breath sounds are diminished t/o. Garcia catheter is in place draining clear, orange urine. urine had strong smell. 450 ml emptied this shift. PERRLA , and dilated at 3mm and sclera and skin are jaundiced. Abdomen is round, firm, distended. umbilical hernia noted. Pt has had 2 very small amounts of stool on his prince this shift.
[2021-09-22 06:11] LABS: POC Glucose,Bedside 146 (70-110)
[2021-09-22 08:00] VITALS: BP 162/84; PULSE 85; RESP 20; TEMP 36.5; O2SAT 97
[2021-09-22 08:08] LABS: Anion Gap 6.2 mEq/L (5-15); Blood Urea Nitrogen 30 mg/dl (9-20); Calcium 6.9 mg/dl (8.4-10.2); Carbon Dioxide 22 mmol/L (22.0-30.0); Chloride 112 mmol/L (98-107); Creatinine Clearance Estimated 102 mL/min (50-200); Estimated Glomerular Filt Rate 112 ml/min (>60); GFR (African American) 135 ML/MIN (>60); Glucose 133 mg/dl (74-100); Potassium 4.2 mmoL/L (3.5-5.1); Sodium 136 mmol/L (136-145)
[2021-09-22 08:27] LABS: Basophils # 0.1 K/mm3 (0-0.2); Basophils % 0.9 % (0.1-2.0); Eosinophils # 0.8 K/mm3 (0.0-0.4); Eosinophils % 10.7 % (0.1-12.0); Hematocrit 21.6 % (42.0-52.0); Hemoglobin 7.1 g/dL (14.1-18.0); Mean Corpuscular HGB Conc 32.8 g/dL (31.8-35.4); Mean Corpuscular Hemoglobin 25.5 pg (27.0-31.2); Mean Corpuscular Volume 77.5 fl (80-94); Mean Platelet Volume 6.8 fl (7.4-10.4); Monocytes # 0.7 K/mm3 (0.1-1.0); Monocytes % 9.2 % (1.7-9.3); Neutrophils # 5.1 K/mm3 (1.8-7.8); Neutrophils % 66.3 % (37.0-80.0); Platelet Count 242 K/mm3 (142-424); Red Blood Count 2.79 M/mm3 (4.60-6.20); Red Cell Distribution Width 21.7 % (11.5-17.5); White Blood Count 7.7 K/mm3 (4.8-10.8)
[2021-09-22 08:46] LABS: Ammonia 142 umol/L (9-30)
--- NOTE | 2021-09-22 09:19 | HMH.ACPN2 ---
Internal Medicine - PN: Subj *Date: 09/22/21 *Time: 18:16 Interval history: 70-year-old male patient resting in bed quietly, he is still obtunded. He does not verbalize words but will moan when physically stimulated. Ammonia level 142 today Will insert G-tube and increase lactulose Exam Vital signs and Labs for Last 24 Hours: Temp Pulse Resp BP Pulse Ox 97.7 F 85 20 162/84 H 97 09/22/21 08:00 09/22/21 08:00 09/22/21 08:00 09/22/21 08:00 09/22/21 08:00 Laboratory Results - last 24 hr 09/21/21 10:05: Vancomycin Trough 20.1 H 09/21/21 10:05: WBC 6.6, RBC 2.90 L, Hgb 7.0 L, Hct 22.6 L, MCV 77.8 L, MCH 24.2 L, MCHC 31.1 L, RDW 23.5 H, Plt Count 302, MPV 7.9, Neut % (Auto) 71.9, Lymph % (Auto) 11.6, [place] % (Auto) 8.0, Eos % (Auto) 7.4, Baso % (Auto) 1.1, Neut # (Auto) 4.7, Lymph # (Auto) 0.8, [place] # (Auto) 0.5, Eos # (Auto) 0.5 H, Baso # (Auto) 0.1 09/21/21 10:05: Sodium 136, Potassium 3.9, Chloride 110 H, Carbon Dioxide 22, Anion Gap 7.9, BUN 24 H, Creatinine 0.80, Estimated Creat Clear 104, Estimated GFR 96, Est GFR ( Amer) 116, Glucose 125 H, Calcium 6.9 L 09/21/21 10:05: Ammonia 92 H 09/21/21 11:25: POC Glucose 126 H 09/21/21 16:01: POC Glucose 131 H 09/21/21 21:28: POC Glucose 146 H 09/22/21 05:02: POC Glucose 146 H 09/22/21 07:40: Sodium 136, Potassium 4.2, Chloride 112 H, Carbon Dioxide 22, Anion Gap 6.2, BUN 30 H, Creatinine 0.70, Estimated Creat Clear 102, Estimated GFR 112, Est GFR ( Amer) 135, Glucose 133 H, Calcium 6.9 L 09/22/21 08:05: WBC 7.7, RBC 2.79 L, Hgb 7.1 L, Hct 21.6 L, MCV 77.5 L, MCH 25.5 L, MCHC 32.8, RDW 21.7 H, Plt Count 242, MPV 6.8 L, Neut % (Auto) 66.3, Lymph % (Auto) 13.0, [place] % (Auto) 9.2, Eos % (Auto) 10.7, Baso % (Auto) 0.9, Neut # (Auto) 5.1, Lymph # (Auto) 1.0, [place] # (Auto) 0.7, Eos # (Auto) 0.8 H, Baso # (Auto) 0.1 09/22/21 08:05: Ammonia 142 H I & O for Last 24 hours: Intake & Output 09/19/21 09/20/21 09/21/21 09/22/21 23:59 23:59 23:59 23:59 Intake Total 500 / 500 3189 / 3189 1967 / 2854 887 / 887 Output Total 1150 / 1150 300 / 300 390 / 390 450 / 450 Balance -650 / -650 2889 / 2889 1577 / 2464 437 / 437 Weight 227 lb 4 oz 227 lb 4.005 oz 231 lb 7.766 oz 228 lb 8 oz Microbiology Reports for the Last 24 Hours: Microbiology 09/19/21 11:05 Blood Blood Culture - Preliminary NO GROWTH AFTER 48 HOURS 09/19/21 11:05 Blood Blood Culture - Preliminary NO GROWTH AFTER 48 HOURS - Constitutional no acute distress, chronically ill appearing, obtunded - *Routine HEENT Exam Head: Present: normocephalic Eye: Present: EOMI ENT: Present: mucous membranes dry - *Routine Neck Exam Present: trachea midline. Absent: tracheal deviation - *Routine Respiratory Exam Present: decreased breath sounds - *Routine Cardiovascular Exam Present: RRR - *Routine Abdominal Exam Present: soft, normoactive bowel sounds Comments: Ascites - *Routine Extremities Exam Present: edema, pulses intact. Absent: cyanosis, clubbing Comments: Bilateral lower extremity edema - *Routine Skin Exam Present: intact, dry. Absent: cyanosis, erythema - *Routine Neurological Exam Present: altered mental status - Routine Psychiatric Exam Present: unable to assess Assessment and Plan (1) Gynecomastia Status: Acute Category: Medical Code(s): N62 - Hypertrophy of breast (2) Anasarca Status: Acute Category: Medical Code(s): R60.1 - Generalized edema (3) Blood loss anemia Status: Acute Category: Medical Code(s): D50.0 - Iron deficiency anemia secondary to blood loss (chronic) (4) Cirrhosis Status: Acute Qualifiers: Hepatic cirrhosis type: alcoholic cirrhosis Ascites presence: with ascites Qualified Code(s): K70.31 - Alcoholic cirrhosis of liver with ascites Category: Medical Code(s): K74.60 - Unspecified cirrhosis of liver (5) Hepatic encephalopathy Status: Acute
--- NOTE | 2021-09-22 10:52 | XR_ITS ---
FINAL REPORT CLINICAL HISTORY: verify ng tube placement FINDINGS: ABDOMEN SINGLE VIEW There is a nonspecific bowel gas pattern with multiple air-filled bowel loops. NG tube tip terminates is in the region of the body of the stomach. A presumed Garcia catheter is identified. No abnormal calcification is seen. IMPRESSION: NG tube in the region of the body of the stomach. Reviewed, Interpreted and Dictated by Jefferson Salguero III, MD Transcribed by Arminda Torres Authenticated and [facility]
[2021-09-22 11:10] LABS: POC Glucose,Bedside 147 (70-110)
[2021-09-22 12:00] VITALS: BP 157/84; PULSE 83; RESP 18; TEMP 36.4; O2SAT 92
--- NOTE | 2021-09-22 12:28 | PC.NURSE ---
Addendum entered by Tamara Byrne RN 09/22/21 12:34: correction tube was a size 16 Original Note: 1045 assisted with placement of ng tube. size 14 and 55cm at nare, positive bowel sounds when air instilled.
--- NOTE | 2021-09-22 15:09 | PC.NURSE ---
PT IS RESTING IN BED. PT IS STILL OBTUNDED. PT NOW HAS AN NG TUBE TO THE RT NARE SECURED AT 64. PT WILL MOAN AND OPEN HIS EYES WHEN TURNING AND REPOSITIONING. LUNG SOUNDS DIMINISHED. ABDOMEN DISTENDED (ASCITES NOTED). 2-3+ PITTING EDEMA NOTED TO BLE. PT HAD A SMALL DARK LOOSE STOOL THIS SHIFT. TURNING AND REPOSITIONING FREQUENTLY. ORAL CARE PROVIDED. WILL CONTINUE TO MONITOR.
[2021-09-22 16:00] VITALS: BP 154/76; PULSE 85; RESP 18; TEMP 36.1; O2SAT 96
[2021-09-22 16:29] LABS: POC Glucose,Bedside 150 (70-110)
[2021-09-22 20:00] VITALS: BP 160/84; PULSE 87; RESP 18; TEMP 36.5; O2SAT 98
[2021-09-23] VITALS: BP 147/80; PULSE 91; RESP 18; TEMP 36.9; O2SAT 97
[2021-09-23 03:40] VITALS: BP 149/96; PULSE 93; RESP 18; TEMP 36.8; O2SAT 95
--- NOTE | 2021-09-23 04:56 | PC.NURSE ---
Pt has had 2 very large dark black/blood tinged BM's this shift. NG tube 63 cm at the right nare. he has +2 pitting edema in BLE. +1 edema in BUE. rodrigues cath in place draining clear, orange urine. he has been turned every 2 hours this shift. heel protectors on, and heels floated off mattress. breath sounds diminished on auscultation. PERLLA and dilated at 3mm. arousable to light pain, he grunts and moans when being repositioned . he does not follow commands, he localizes to pain.
[2021-09-23 05:00] VITALS: BMI 30.2
[2021-09-23 05:27] LABS: Chloride 113 mmol/L (98-107); Potassium 3.6 mmoL/L (3.5-5.1); Sodium 139 mmol/L (136-145)
[2021-09-23 05:29] LABS: Ammonia 20 umol/L (9-30)
[2021-09-23 05:30] LABS: Anion Gap 6.6 mEq/L (5-15); Blood Urea Nitrogen 31 mg/dl (9-20); Calcium 7.1 mg/dl (8.4-10.2); Carbon Dioxide 23 mmol/L (22.0-30.0); Creatinine Clearance Estimated 103 mL/min (50-200); Estimated Glomerular Filt Rate 84 ml/min (>60); GFR (African American) 101 ML/MIN (>60); Glucose 157 mg/dl (74-100)
[2021-09-23 05:39] LABS: POC Glucose,Bedside 145 (70-110)
[2021-09-23 05:43] LABS: Basophils # 0.1 K/mm3 (0-0.2); Basophils % 1.3 % (0.1-2.0); Eosinophils # 0.7 K/mm3 (0.0-0.4); Eosinophils % 8.9 % (0.1-12.0); Lymphocytes # 0.8 K/mm3 (0.7-4.5); Lymphocytes % 9.8 % (10-50); Mean Corpuscular HGB Conc 29.8 g/dL (31.8-35.4); Mean Corpuscular Hemoglobin 24.1 pg (27.0-31.2); Mean Corpuscular Volume 80.9 fl (80-94); Mean Platelet Volume 8.7 fl (7.4-10.4); Monocytes # 0.6 K/mm3 (0.1-1.0); Monocytes % 7.7 % (1.7-9.3); Neutrophils # 5.6 K/mm3 (1.8-7.8); Neutrophils % 72.3 % (37.0-80.0); Platelet Count 295 K/mm3 (142-424); Red Blood Count 2.26 M/mm3 (4.60-6.20); White Blood Count 7.7 K/mm3 (4.8-10.8)
[2021-09-23 05:47] LABS: POC Glucose,Bedside 149 (70-110)
[2021-09-23 05:48] LABS: Red Cell Distribution Width 25.6 % (11.5-17.5)
--- NOTE | 2021-09-23 05:48 | PC.NURSE ---
pt o2 turned down to 1L NC at this time. currrently 96% o2
[2021-09-23 05:49] LABS: Hemoglobin 5.5 g/dL (14.1-18.0); Vancomycin,Trough 21.4 ug/mL (5.0-10.0)
[2021-09-23 05:50] LABS: Hematocrit 18.3 % (42.0-52.0)
--- NOTE | 2021-09-23 05:54 | PC.NURSE ---
critical hgb and hct values reported to dr ochoa at this time
--- NOTE | 2021-09-23 05:55 | PC.NURSE ---
Spoke with Constance at [facility] to report Vancomycin trough of 21.4, she instructed to hold 05:00 dose.
[2021-09-23 08:00] VITALS: BP 164/90; PULSE 89; RESP 17; TEMP 36.5; O2SAT 97
--- NOTE | 2021-09-23 08:43 | HMH.ACPN2 ---
Internal Medicine - PN: Subj *Date: 09/23/21 *Time: 14:43 Interval history: 70-year-old male patient resting in bed quietly he does not respond to verbal stimuli and only moans and mumbles with tactile stimuli. Discussed patient's medical status with brother Braulio and he agree hospice is the best option for patients at this moment. We will consult hospice. Nasogastric tube was placed yesterday for proper administration of lactulose and today's ammonia level is 20. Exam Vital signs and Labs for Last 24 Hours: Temp Pulse Resp BP Pulse Ox 98.0 F 92 H 17 153/74 H 93 L 09/23/21 11:14 09/23/21 11:14 09/23/21 11:14 09/23/21 11:14 09/23/21 11:14 Laboratory Results - last 24 hr 09/22/21 16:14: POC Glucose 150 H 09/22/21 20:12: POC Glucose 149 H 09/23/21 05:00: WBC 7.7, RBC 2.26 L, Hgb 5.5 L* D, Hct 18.3 L*, MCV 80.9, MCH 24.1 L, MCHC 29.8 L, RDW 25.6 H*, Plt Count 295, MPV 8.7, Neut % (Auto) 72.3, Lymph % (Auto) 9.8 L, [place] % (Auto) 7.7, Eos % (Auto) 8.9, Baso % (Auto) 1.3, Neut # (Auto) 5.6, Lymph # (Auto) 0.8, [place] # (Auto) 0.6, Eos # (Auto) 0.7 H, Baso # (Auto) 0.1 09/23/21 05:00: Sodium 139, Potassium 3.6, Chloride 113 H, Carbon Dioxide 23, Anion Gap 6.6, BUN 31 H, Creatinine 0.90 D, Estimated Creat Clear 103, Estimated GFR 84, Est GFR ( Amer) 101 D, Glucose 157 H, Calcium 7.1 L 09/23/21 05:00: Ammonia 20 09/23/21 05:00: Vancomycin Trough 21.4 H 09/23/21 05:28: POC Glucose 145 H 09/23/21 11:20: POC Glucose 155 H I & O for Last 24 hours: Intake & Output 09/20/21 09/21/21 09/22/21 09/23/21 23:59 23:59 23:59 23:59 Intake Total 3189 / 3189 1967 / 2854 2101 / 2101 1282 / 1282 Output Total 300 / 300 390 / 390 1050 / 1230 180 / 180 Balance 2889 / 2889 1577 / 2464 1051 / 871 1102 / 1102 Weight 227 lb 4.005 oz 231 lb 7.766 oz 228 lb 8 oz 230 lb 2.995 oz - Constitutional chronically ill appearing, obtunded - *Routine HEENT Exam Head: Present: normocephalic Eye: Present: EOMI ENT: Present: mucous membranes dry (Ghada is at) - *Routine Neck Exam Present: trachea midline. Absent: tracheal deviation - *Routine Respiratory Exam Present: decreased breath sounds. Absent: accessory muscle use - *Routine Cardiovascular Exam Present: RRR - *Routine Abdominal Exam Present: soft, normoactive bowel sounds, distended. Absent: tenderness Comments: Ascites - *Routine Extremities Exam Present: edema, full ROM, pulses intact. Absent: cyanosis, clubbing - *Routine Skin Exam Present: intact, dry. Absent: cyanosis, erythema - *Routine Neurological Exam Present: altered mental status - Routine Psychiatric Exam Present: unable to assess Assessment and Plan (1) Gynecomastia Status: Acute Category: Medical Code(s): N62 - Hypertrophy of breast (2) Anasarca Status: Acute Category: Medical Code(s): R60.1 - Generalized edema (3) Blood loss anemia Status: Acute Category: Medical Code(s): D50.0 - Iron deficiency anemia secondary to blood loss (chronic) (4) Cirrhosis Status: Acute Qualifiers: Hepatic cirrhosis type: alcoholic cirrhosis Ascites presence: with ascites Qualified Code(s): K70.31 - Alcoholic cirrhosis of liver with ascites Category: Medical Code(s): K74.60 - Unspecified cirrhosis of liver (5) Hepatic encephalopathy Status: Acute Category: Medical Code(s): K72.90 - Hepatic failure, unspecified without coma (6) Liver mass Status: Acute Category: Medical Code(s): R16.0 - Hepatomegaly, not elsewhere classified (7) Upper GI bleed Status: Acute Category: Medical Code(s): K92.2 - Gastrointestinal hemorrhage, unspecified (8) Ascites Status: Acute Qualifiers: Ascites type: due to alcoholic cirrhosis Qualified Code(s): K70.31 - Alcoholic cirrhosis of liver with ascites Category: Medical Code(s): R18.8 - Other ascites (9) COPD (chronic obstructive pulmonary disease) Status: Acute Qualifiers: COPD type:
--- NOTE | 2021-09-23 10:15 | SW/DCPLANNER ---
Addendum entered by [facility] 09/23/21 16:12: Patient has been accepted to [facility]. Patient's family (Braulio/brother Melissa Becerra/sister) concur with this plan. Patient information and discharge paperwork will be faxed to [facility]. Melissa Becerra: [phone] Addendum entered by [facility] 09/23/21 15:49: JEREMY reilly/ [facility] is evaluating this patient and speaking with [facility] in [place] regarding admission for this patient. Addendum entered by [facility] 09/23/21 11:37: Zoila reilly/ [facility] has reviewed information and will be following up with patient/family soon. Addendum entered by [facility] 09/23/21 10:35: Per Gerard Hammond after speaking with patient's brother he is agreeable to consult Hospice services. Patient information has been faxed to [facility]. Original Note: Per patient's significant other: patient's brother assist with all decision making for this patient. I have informed Gerard Hammond of brother's phone number and he will call and discuss situation/Hospice with Braulio. Brother (Braulio) [phone]
--- NOTE | 2021-09-23 10:36 | HMH.PHACONS ---
- Pharmacy Consult Date: 09/23/21 Time: 10:36 Referring provider: DR. DONG Reason for Consult:: VANCOMYCIN TROUGH LEVEL Allergies and ADEs:: Allergies Allergy/AdvReac Type Severity Reaction Status Date / Time aspirin Allergy Severe Anaphylaxis Verified 07/20/21 14:53 Home Medications:: Home Medications Medication Instructions Recorded Confirmed Type Furosemide [Furosemide 20mg Tab*] 20 mg PO DAILY 10/13/20 09/19/21 History albuterol sulfate 90 mcg/actuation 1 inh IH QIDP PRN 07/20/21 09/19/21 History aerosol inhaler gabapentin 600 mg tablet 600 mg PO TID #90 tab 07/20/21 09/19/21 Rx Cetirizine HCl 10 mg PO DAILY 09/19/21 09/19/21 History Cyclobenzaprine HCl [Flexeril 10mg 10 mg PO DAILYP PRN 09/19/21 09/19/21 History tablet] Duloxetine HCl [Cymbalta] 60 mg PO BID 09/19/21 09/19/21 History Hydrocod/Acet 5/325 mg [Artemus 1 tab PO DAILY 09/19/21 09/19/21 History 5/325mg tablet] Lactulose [Lactulose 20gm/30ml 20 g PO BID 09/19/21 09/19/21 History Oral Soln] Omeprazole 40 mg PO DAILY 09/19/21 09/19/21 History Spironolactone 100 mg PO DAILY 09/19/21 09/19/21 History Trazodone HCl 50 mg PO HS 09/19/21 09/19/21 History glipiZIDE [Glipizide] 10 mg PO BID 09/19/21 09/19/21 History lisinopriL [Lisinopril] 2.5 mg PO DAILY 09/19/21 09/19/21 History Height: 1.86 m Weight: 104.411 kg Laboratory Results:: Laboratory Results - last 24 hr 09/22/21 10:58: POC Glucose 147 H 09/22/21 16:14: POC Glucose 150 H 09/22/21 20:12: POC Glucose 149 H 09/23/21 05:00: WBC 7.7, RBC 2.26 L, Hgb 5.5 L* D, Hct 18.3 L*, MCV 80.9, MCH 24.1 L, MCHC 29.8 L, RDW 25.6 H*, Plt Count 295, MPV 8.7, Neut % (Auto) 72.3, Lymph % (Auto) 9.8 L, [place] % (Auto) 7.7, Eos % (Auto) 8.9, Baso % (Auto) 1.3, Neut # (Auto) 5.6, Lymph # (Auto) 0.8, [place] # (Auto) 0.6, Eos # (Auto) 0.7 H, Baso # (Auto) 0.1 09/23/21 05:00: Sodium 139, Potassium 3.6, Chloride 113 H, Carbon Dioxide 23, Anion Gap 6.6, BUN 31 H, Creatinine 0.90 D, Estimated Creat Clear 103, Estimated GFR 84, Est GFR ( Amer) 101 D, Glucose 157 H, Calcium 7.1 L 09/23/21 05:00: Ammonia 20 09/23/21 05:00: Vancomycin Trough 21.4 H 09/23/21 05:28: POC Glucose 145 H Medical History: Reports:: Cancer, Chronic Obstructive Pulmonary Disease (COPD), Coronary Artery Disease, Diabetes Mellitus Type 2, Gastroesophageal Reflux Disease(GERD), Hyperlipidemia, Hypertension, Myocardial Infarction Denies:: Diabetes Mellitus Type 1 Assessment and Plan (1) Gynecomastia Status: Acute Category: Medical Code(s): N62 - Hypertrophy of breast (2) Anasarca Status: Acute Category: Medical Code(s): R60.1 - Generalized edema (3) Blood loss anemia Status: Acute Category: Medical Code(s): D50.0 - Iron deficiency anemia secondary to blood loss (chronic) (4) Cirrhosis Status: Acute Qualifiers: Hepatic cirrhosis type: alcoholic cirrhosis Ascites presence: with ascites Qualified Code(s): K70.31 - Alcoholic cirrhosis of liver with ascites Category: Medical Code(s): K74.60 - Unspecified cirrhosis of liver (5) Hepatic encephalopathy Status: Acute Category: Medical Code(s): K72.90 - Hepatic failure, unspecified without coma (6) Liver mass Status: Acute Category: Medical Code(s): R16.0 - Hepatomegaly, not elsewhere classified (7) Upper GI bleed Status: Acute Category: Medical Code(s): K92.2 - Gastrointestinal hemorrhage, unspecified (8) Ascites Status: Acute Qualifiers: Ascites type: due to alcoholic cirrhosis Qualified Code(s): K70.31 - Alcoholic cirrhosis of liver with ascites Category: Medical Code(s): R18.8 - Other ascites (9) COPD (chronic obstructive pulmonary disease) Status: Acute Qualifiers: COPD type: unspecified COPD Qualified Code(s): J44.9 - Chronic obstructive pulmonary disease, unspecified Category: Medical Code(s): J44.9 - Chronic obstructive pulmonary disease, unspecified (10) Pleural effusion associat
--- NOTE | 2021-09-23 10:43 | DIET.NUTRFU ---
RD rounded with provider today, patient slightly more alert but still not able to answer questions or eat. He now has a NG in place for output, has IVF in place for hydration. Labs WNL, glucose elevated. Hgb low today, received blood yesterday, has possible bleeding. Hx of Esophageal varices. Patient admitted on 09/19, not eating since admit d/t lethargic not alert enough to eat. Provider spoke to brother today about possible hospice. Patient is DNR, will continue to follow patient/family wishes.
--- NOTE | 2021-09-23 10:45 | HMH.ACPN ---
Internal Medicine - PN: Subj *Date: 09/23/21 *Time: 10:45 Exam Vital signs and Labs for Last 24 Hours: Temp Pulse Resp BP Pulse Ox 97.7 F 89 17 164/90 H 97 09/23/21 08:00 09/23/21 08:00 09/23/21 08:00 09/23/21 08:00 09/23/21 08:00 Laboratory Results - last 24 hr 09/22/21 10:58: POC Glucose 147 H 09/22/21 16:14: POC Glucose 150 H 09/22/21 20:12: POC Glucose 149 H 09/23/21 05:00: WBC 7.7, RBC 2.26 L, Hgb 5.5 L* D, Hct 18.3 L*, MCV 80.9, MCH 24.1 L, MCHC 29.8 L, RDW 25.6 H*, Plt Count 295, MPV 8.7, Neut % (Auto) 72.3, Lymph % (Auto) 9.8 L, [place] % (Auto) 7.7, Eos % (Auto) 8.9, Baso % (Auto) 1.3, Neut # (Auto) 5.6, Lymph # (Auto) 0.8, [place] # (Auto) 0.6, Eos # (Auto) 0.7 H, Baso # (Auto) 0.1 09/23/21 05:00: Sodium 139, Potassium 3.6, Chloride 113 H, Carbon Dioxide 23, Anion Gap 6.6, BUN 31 H, Creatinine 0.90 D, Estimated Creat Clear 103, Estimated GFR 84, Est GFR ( Amer) 101 D, Glucose 157 H, Calcium 7.1 L 09/23/21 05:00: Ammonia 20 09/23/21 05:00: Vancomycin Trough 21.4 H 09/23/21 05:28: POC Glucose 145 H I & O for Last 24 hours: Intake & Output 09/20/21 09/21/21 09/22/21 09/23/21 23:59 23:59 23:59 23:59 Intake Total 3189 / 3189 1967 / 2854 2101 / 2101 761 / 761 Output Total 300 / 300 390 / 390 1050 / 1230 180 / 180 Balance 2889 / 2889 1577 / 2464 1051 / 871 581 / 581 Weight 103.079 kg 105 kg 103.646 kg 104.411 kg Assessment and Plan (1) Gynecomastia Status: Acute Category: Medical Code(s): N62 - Hypertrophy of breast (2) Anasarca Status: Acute Category: Medical Code(s): R60.1 - Generalized edema (3) Blood loss anemia Status: Acute Category: Medical Code(s): D50.0 - Iron deficiency anemia secondary to blood loss (chronic) (4) Cirrhosis Status: Acute Qualifiers: Hepatic cirrhosis type: alcoholic cirrhosis Ascites presence: with ascites Qualified Code(s): K70.31 - Alcoholic cirrhosis of liver with ascites Category: Medical Code(s): K74.60 - Unspecified cirrhosis of liver (5) Hepatic encephalopathy Status: Acute Category: Medical Code(s): K72.90 - Hepatic failure, unspecified without coma (6) Liver mass Status: Acute Category: Medical Code(s): R16.0 - Hepatomegaly, not elsewhere classified (7) Upper GI bleed Status: Acute Category: Medical Code(s): K92.2 - Gastrointestinal hemorrhage, unspecified (8) Ascites Status: Acute Qualifiers: Ascites type: due to alcoholic cirrhosis Qualified Code(s): K70.31 - Alcoholic cirrhosis of liver with ascites Category: Medical Code(s): R18.8 - Other ascites (9) COPD (chronic obstructive pulmonary disease) Status: Acute Qualifiers: COPD type: unspecified COPD Qualified Code(s): J44.9 - Chronic obstructive pulmonary disease, unspecified Category: Medical Code(s): J44.9 - Chronic obstructive pulmonary disease, unspecified (10) Pleural effusion associated with hepatic disorder Status: Acute Category: Medical Code(s): K76.9 - Liver disease, unspecified; J91.8 - Pleural effusion in other conditions classified elsewhere (11) Esophageal varices Status: Acute Qualifiers: Esophageal varices bleeding: with bleeding Category: Medical Code(s): I85.00 - Esophageal varices without bleeding The patient's infection will respond to the chosen ABx?: Yes Is the patient receiving the right drug, dose, and route?: Yes Could a more targeted ABx be ordered?: No (AFEBRILE, WBC WNL, BLD CX (-) X2.)
[2021-09-23 11:14] VITALS: BP 153/74; PULSE 92; RESP 17; TEMP 36.7; O2SAT 93
[2021-09-23 11:42] LABS: POC Glucose,Bedside 155 (70-110)
--- NOTE | 2021-09-23 14:19 | PC.NURSE ---
Pt is resting in bed quietly. He will awaken to verbal stimuli but unable to follow commands. He remains on RA. He's had 1 large bloody BM this shift. He's been turned q2hrs and oral care provided. +2 edema to BLE. +2 edema to RUE. Heels are floated. Abdomen is ascitic. Hyperactive bowels sounds noted. Lungs are clear but diminished. NG to right nare secured at 63. Position verified with auscultation and aspiration of gastric contents. His rodrigues is to bedside draining tea colored urine, some sediment noted. Most recent glucose was 155.
[2021-09-23 15:07] VITALS: BP 148/84; PULSE 87; RESP 17; TEMP 36.3; O2SAT 96
--- NOTE | 2021-09-23 16:33 | HMH.DCSUM ---
General - General Admission date:: 09/19/21 Discharge date: 09/23/21 HPI HPI: pt presented to the ed -patient brought in by ambulance for reported coffee-ground emesis and altered mental status. Reportedly combative at the scene and was given intramuscular Versed by EMS personnel. Patient at this time is somnolent and unable to give any additional history. He has known history of alcoholic cirrhosis with ascites per previous records.pt has known liver dis with ascites and has sig blood loss anemia and will be admitted at this time with hepatic enceph- Hospital Course Hospital Course: pt presented to the ed -patient brought in by ambulance for reported coffee-ground emesis and altered mental status. Reportedly combative at the scene and was given intramuscular Versed by EMS personnel. Patient at this time is somnolent and unable to give any additional history. He has known history of alcoholic cirrhosis with ascites per previous records.pt has known liver dis with ascites and has sig blood loss anemia and will be admitted at this time with hepatic enceph 09/19/21 CXR: IMPRESSION: Worsening congestive heart failure and increasing pleural effusions. Electronically signed by Kael Ybarra DO 09/19/[address]: FINDINGS: Brain: No acute intracranial hemorrhage, cerebral edema, or midline shift. Cerebral ventricles: No hydrocephalus. Paranasal sinuses: Mucoperiosteal thickening is present in the maxillary sinuses. Mastoid air cells: Visualized mastoid air cells are well aerated. Orbital cavities: The visualized orbits appear unremarkable. Bones/joints: No acute fracture. Soft tissues: Unremarkable. IMPRESSION: No acute intracranial abnormality. Electronically signed by Sergio Louise MD 09/19/21 Abd/Pelvis CT: FINDINGS: Pleural spaces: Large left and moderate right pleural effusions continue to increase in volume. There is contiguous atelectasis. Heart: Coronary artery calcifications. Heart is upper limits normal in size. No evidence for pericardial effusion. Mediastinal space: Paraesophageal varices. Diaphragm: Sliding hiatal hernia. Liver: Liver is diminutive in size and macrolobulated. A new hypoattenuating heterogenous nodule in the dome of the right lobe of the liver measures 19 x 18 x 16 mm and is worrisome for the development primary hepatocellular malignancy or metastatic disease. Gallbladder and bile ducts: Gallbladder is surgically absent. No worrisome dilation of the biliary tree. Pancreas: Stranding and haziness around the pancreas is likely due to 3rd spacing although pancreatitis cannot be excluded by this exam. No ductal dilation. Spleen: Large volume diffuse abdominal ascites with fluid around the liver and spleen, extending into the colic gutters and pelvis. Fluid throughout the mesentery. Volume is increased compared to the prior study. Compared to the prior examination, the spleen is diminished in size now measuring approximately 11 x 10 x 7 cm. Spleen is markedly macrolobulated. There are several areas of hypoenhancement within the spleen which probably to reflect splenic infarcts. Adrenal glands: Adrenal glands are negative for evidence of thickening or nodule. Kidneys and ureters: Kidneys are negative for evidence of solid or cystic mass, hydronephrosis or calculus disease. Stomach and bowel: Unremarkable. No obstruction. No mucosal thickening. Appendix: No evidence of appendicitis. Intraperitoneal space: There is no evidence of free air or gastrointestinal obstruction. Vasculature: There are calcifications within the aorta and its branches. Recanalization of the umbilical vein. Perisplenic varices. Lymph nodes: Unremarkable. No enlarged lymph nodes. Urinary bladder: Unremarkable as visualized. Reproductive: Unremarkable as visualized. Bones/joints: Mild degenerative spondylosis and facet arthropathy within
--- NOTE | 2021-09-23 16:51 | PC.NURSE ---
Report called to Jessie Mejia RN
--- NOTE | 2021-09-23 17:28 | PC.NURSE ---
Notified EMS for transport
[2021-09-23 19:12] LABS: POC Glucose,Bedside 159 (70-110)
== END 2021-09-23 18:02 | disposition hospice, inpatient (51) | DRG 441 ==
LOC: ER 14:12 → 2ND 14:35
PROVIDERS: Nurse Practitioner Family; Admitting Provider Internal Medicine Adolescent Medicine; Emergency Provider Emergency Medicine; PCP Emergency Medicine; Visit Provider Emergency Medicine
DX: K72.90 Hepatic failure, unspecified without coma (principal); I85.01 Esophageal varices with bleeding; K70.31 Alcoholic cirrhosis of liver with ascites; J44.9 Chronic obstructive pulmonary disease, unspecified; I25.10 Atherosclerotic heart disease of native coronary artery without angina pectoris; E11.9 Type 2 diabetes mellitus without complications; E78.5 Hyperlipidemia, unspecified; I25.2 Old myocardial infarction; F41.9 Anxiety disorder, unspecified; I48.91 Unspecified atrial fibrillation; I11.0 Hypertensive heart disease with heart failure; I50.9 Heart failure, unspecified; Z85.9 Personal history of malignant neoplasm, unspecified; F32.A Depression, unspecified; M19.90 Unspecified osteoarthritis, unspecified site; I83.899 Varicose veins of unspecified lower extremity with other complications; Z79.84 Long term (current) use of oral hypoglycemic drugs; Z87.891 Personal history of nicotine dependence
CPT/HCPCS: 36415; 51702; 70450; 71045; 74018; 74177; 80048; 80053; 80202; 81001; 82140; 82272; 82803; 82962; 83605; 83690; 85014; 85018; 85025; 85610; 86850; 87040; 93005; 99291; C9803; G0328; J0696; J2354; P9016; Q9967; U0003; U0005